=== PATIENT | female | born 1965 | race Caucasian/White ===

== ENCOUNTER → 2017-06-07 | Outpatient (CLI) | payer OTHER ==
[~2017-06-07] MED LIST: ALBUAER2 INH; CALC500C70 PO; LSX/40 PO; METF500T PO; OPTIRAY 320 IV PRN; SIMV40TA4 PO
--- NOTE | 2017-06-08 07:30 | DIAGNOSTIC IMAGING REPORT ---
CT OF THE CHEST WITH IV CONTRAST CLINICAL HISTORY: LYMPHOMA COMPARISON STUDY: 05/06/2012 TECHNIQUE: Following the IV administration of 93 mL of Optiray-320, CT of the thorax was performed from the thoracic inlet to the lung bases. Images are reviewed in the axial, sagittal, and coronal planes. IV contrast was administered without complication. CT DOSE: FINDINGS: Thyroid: There is a multinodular thyroid gland. Thoracic aorta: The thoracic aorta is normal in course and caliber, noting standard 3-vessel arch anatomy. No aneurysm or dissection is seen. Pulmonary vasculature: The pulmonary trunk is normal in caliber. There are no central filling defects identified to suggest pulmonary embolus. Note that this examination was not protocoled for the evaluation of pulmonary emboli. HEART: There are mild coronary artery calcifications present. Lungs and pleural spaces: There are no pleural effusions. There is subtle groundglass attenuation the lungs with a mosaic pattern. This a nonspecific finding which may indicate underlying airway disease. There is no lobar consolidation. There are multiple scattered subcentimeter pulmonary nodules. The largest is located within the right lower lobe measuring 4 mm. These remain relatively similar to the prior 2011 study strongly favoring a postinflammatory etiology. Mediastinum: There is no mediastinal lymphadenopathy. Julia: Clear. Axilla: No evidence of pathologic adenopathy. Upper abdomen: Partially visualized upper abdominal viscera is within normal limits. Skeletal structures: There are postsurgical changes of thoracoabdominal spinal rodding IMPRESSION: 1. No evidence of pathologic axillary, mediastinal, or hilar adenopathy 2. Multiple scattered subcentimeter pulmonary nodules. These remain similar to the prior 2011 study and in all likelihood are benign 3. Subtle groundglass attenuation of the lungs with a mosaic pattern. This may indicate underlying airway disease Electronically signed by: Pratik Calhoun M.D. 06/07/2017 10:41 AM Dictated Date/Time: 06/07/2017 10:35 AM
--- NOTE | 2017-06-08 07:31 | DIAGNOSTIC IMAGING REPORT ---
ABD/PELVIS IV AND ORAL CONT CT DOSE: 2274.05 mGy.cm HISTORY: Lymphoma LYMPHOMA TECHNIQUE: Multiaxial CT images of the abdomen and pelvis were performed following the use of intravenous and oral contrast. COMPARISON STUDY: 05/06/2012 PET scan dated 11/04/2014 FINDINGS: Mild bibasilar chronic interstitial change. Mild fatty infiltration of liver. Uniform enhancement characteristics. Several gallstones within the gallbladder lumen. Kidneys enhance uniformly. Several nodes in the region of the celiac axis and peripancreatic region. These are stable compared to the prior study. Pancreas is uniform. The mesenteric nodule described previously is less well-defined. Bowel pattern is nonobstructive throughout. There is no significant mid to lower periaortic adenopathy. Pelvic region shows no significant adenopathy. Uterus is anteflexed. There are several small inguinal nodes unchanged from the prior study. IMPRESSION: 1. Stable exam with no change as compared to the prior study. 2. Several small scattered nodes unchanged from the prior study. 3. No new interval or progressive process. 4. Gallstones. The above report was generated using voice recognition software. It may contain grammatical, syntax or spelling errors. Electronically signed by: Gaston Mendez M.D. 06/07/2017 10:38 AM Dictated Date/Time: 06/07/2017 10:32 AM
== END | disposition home or self-care (01) ==
LOC: C.CTS 07:42
PROVIDERS: ATTEND Internal Medicine Hematology & Oncology
DX: Z85.72 Personal history of non-Hodgkin lymphomas (principal); K80.20 Calculus of gallbladder without cholecystitis without obstruction; R91.8 Other nonspecific abnormal finding of lung field

== ENCOUNTER → 2017-10-24 | Day surgery (SDC) | payer OTHER ==
[2017-10-04 09:19] VITALS: Ht 152.4 cm; Wt 104.5 kg
[~2017-10-24] VITALS: Ht 152.4 cm; Wt 104.5 kg
[~2017-10-24] MED LIST changes: -ALBUAER2 INH; -CALC500C70 PO; +LIDOCAINE HCL 1% MPF 5 ML VIAL ONE; +LISI-461 PO; -OPTIRAY 320 IV PRN; +SODIUM CHLORIDE 0.9% INJ 10 ML VIAL ONE; +VNTHFA/IN INH
--- NOTE | 2017-10-24 15:36 | History & Physical Bridge - [place] ---
H&P Re-Evaluation Bridge Note: I have examined the patient, reviewed the History & Physical and in the interval since the performance of the History & Physical I have noted the following changes of clinical significance: No changes noted
[2017-10-24 16:02] VITALS: TEMP 36.6
--- NOTE | 2017-10-24 16:09 | Discharge Instructions ---
Discharge Instructions Date of Service Oct 24, 2017. Visit Reason for Visit: Lumbar Spinal Stenosis Discharge Discharge Diagnosis / Problem: right leg pain Discharge Goals Goal(s): Decrease discomfort, Improve function Activity Recommendations Activity Limitations: resume your previous activity Anesthesia . Post Anesthesia Instructions: If you have had General Anesthesia or IV Sedation: * Do not drive today. * Resume driving when surgeon permits. * Do not make important decisions or sign legal documents today. * Call surgeon for: 1. Temperature elevations greater than 101 degrees F. 2. Uncontrollable pain. 3. Excessive bleeding. 4. Persistent nausea and vomiting. 5. Medication intolerance (nausea, vomiting or rash). * For nausea and vomiting use only clear liquids such as: tea, soda, bouillon until nausea subsides, then gradually increase diet as tolerated. * If you have any concerns or questions, call your surgeon's office. If physician is unavailable and it is an emergency, call 911 or go to the nearest emergency room. . Diet Recommendations Recommended Home Diet: resume previous diet Procedures Procedures Performed: Caudal Epidural Steroid Injection Pending Studies Studies pending at discharge: no Medical Emergencies . Who to Call and When: Medical Emergencies: If at any time you feel your situation is an emergency, please call 911 immediately. . Non-Emergent Contact Non-Emergency issues call your: Specialist . . "Provider Documentation" section prepared by Keenan Barton. .
[2017-10-24 16:15] VITALS: BP 135/86; PULSE 100; O2SAT 93
--- NOTE | 2017-10-24 17:59 | OPERATIVE REPORT ---
DATE OF OPERATION: 10/24/2017 PREOPERATIVE DIAGNOSES: Lumbar spinal stenosis with right lower extremity radiculopathy and history of a Handy humza placement. POSTOPERATIVE DIAGNOSES: Same. PROCEDURE: Caudal epidural steroid injection under fluoroscopic guidance. INDICATIONS FOR PROCEDURE: The patient is a 52-year-old white female who has significant problems with lumbar spinal stenosis and right lower extremity radiculopathy. She presents today for an epidural injection. It will be via the caudal approach given her prior significant surgery she had for scoliosis. CONSENT: Verbal and written consent was obtained from the patient. Risks and benefits were reviewed. Risks include but are not limited to epidural abscess, epidural hematoma, allergic reaction, and dural puncture. The patient wishes to proceed. DESCRIPTION OF PROCEDURE: The patient was taken back to the special procedures room of the [facility], where she was maintained in a prone position. Backside was cleansed with Betadine x3 and a dry sterile dressing was applied. Fluoroscope was used to identify the sacral hiatus and the overlying skin was anesthetized with 5 mL of lidocaine 1% with a 25-gauge 1-1/2 inch needle. A 22-gauge 5-inch spinal needle was then directed under lateral fluoroscopic guidance into the sacral canal. It entered the canal and the superior aspect of the canal at a distance of 1 inch. She then underwent injection after negative aspiration of 40 mg of Depo-Medrol and 4 mL of preservative free sodium chloride. Injection was well tolerated. DISPOSITION: 1. The patient was taken out into the discharge recovery area, where she will be discharged home once discharge criteria have been met. 2. Follow up in the [facility] office in 2-4 weeks. I attest to the content of the Intraoperative Record and any orders documented therein. Any exception s are noted below.
== END | disposition home or self-care (01) ==
LOC: X.SURG 14:08
PROVIDERS: ATTEND Physical Medicine & Rehabilitation
DX: M48.061 Spinal stenosis, lumbar region without neurogenic claudication (principal); M54.16 Radiculopathy, lumbar region; Z87.39 Personal history of other diseases of the musculoskeletal system and connective tissue

== ENCOUNTER → 2018-07-18 | Day surgery (SDC) | payer OTHER ==
[2018-07-10 14:59] VITALS: Ht 152.4 cm; Wt 101.4 kg
[~2018-07-18] VITALS: Ht 152.4 cm; Wt 101.4 kg
--- NOTE | 2018-07-18 13:11 | [facility] Post Operative Brief Note ---
Immediate Operative Summary Operative Date Jul 18, 2018. Pre-Operative Diagnosis History of Handy humza placement with underlying lumbar spinal stenosis and left lower extremity radiculopathy Post-Operative Diagnosis Same Procedure(s) Performed Caudal Epidural Steroid Injection Surgeon Dr. Macarena Barton Medical Screener Surgeon(s) None Estimated Blood Loss 0 Findings Consistent with Post-Op Diagnosis Specimens NA Drains None Anesthesia Type Local Complication(s) none Disposition Disposition:
--- NOTE | 2018-07-18 13:12 | Discharge Instructions ---
Discharge Instructions Date of Service Jul 18, 2018. Visit Reason for Visit: Low Back Pain, Lumbar Spinal Stenosis Discharge Discharge Diagnosis / Problem: left leg pain Discharge Goals Goal(s): Decrease discomfort, Improve function Activity Recommendations Activity Limitations: resume your previous activity Anesthesia . Post Anesthesia Instructions: If you have had General Anesthesia or IV Sedation: * Do not drive today. * Resume driving when surgeon permits. * Do not make important decisions or sign legal documents today. * Call surgeon for: 1. Temperature elevations greater than 101 degrees F. 2. Uncontrollable pain. 3. Excessive bleeding. 4. Persistent nausea and vomiting. 5. Medication intolerance (nausea, vomiting or rash). * For nausea and vomiting use only clear liquids such as: tea, soda, bouillon until nausea subsides, then gradually increase diet as tolerated. * If you have any concerns or questions, call your surgeon's office. If physician is unavailable and it is an emergency, call 911 or go to the nearest emergency room. . Diet Recommendations Recommended Home Diet: resume previous diet Procedures Procedures Performed: Caudal Epidural Steroid Injection Pending Studies Studies pending at discharge: no Medical Emergencies . Who to Call and When: Medical Emergencies: If at any time you feel your situation is an emergency, please call 911 immediately. . Non-Emergent Contact Non-Emergency issues call your: Specialist . . "Provider Documentation" section prepared by Keenan Barton. .
[2018-07-18 13:13] VITALS: TEMP 36.6
--- NOTE | 2018-07-18 13:27 | OPERATIVE REPORT ---
DATE OF OPERATION: 07/18/2018 PREOPERATIVE DIAGNOSES: Lumbar spinal stenosis, history of Handy humza placement with proximal radicular pain and left lower extremity radiculopathy. POSTOPERATIVE DIAGNOSES: Lumbar spinal stenosis, history of Handy humza placement with proximal radicular pain and left lower extremity radiculopathy. PROCEDURE: Caudal epidural steroid injection under fluoroscopic guidance. INDICATIONS: The patient is a 53-year-old white female who underwent an epidural and did fantastic, was done in November and just recently she has been having some pain, starting to return in early June. She presents today for an epidural injection to provide her with relief. PHYSICAL EXAMINATION: GENERAL: Pleasant female, seated comfortably. MUSCULOSKELETAL: Lumbar paraspinal muscles were palpated. There was some mild soreness noticed. No significant sciatic notch sensitivity on the left or the right. Normal lower extremity strength. Negative seated straight leg raises. CONSENT: Verbal and written consent was obtained from the patient. Risks and benefits were reviewed. Risks include but are not limited to epidural abscess and allergic reaction. The patient wishes to proceed. DESCRIPTION OF PROCEDURE: The patient was taken back to the special procedures room of [facility]. She was maintained in a prone position. Backside was cleansed with Betadine x3 and a dry sterile dressing was applied. Fluoroscopy was used to identify the lateral view, the sacral hiatus and the overlying skin was anesthetized with 5 mL of lidocaine 1% with a 25-gauge 1.5-inch needle. A 22-gauge 5-inch spinal needle was then directed into the canal. It was able to be advanced about half an inch before we got significant resistance. She then underwent injection after negative aspiration of 40 mg Depo-Medrol, 4 mL of preservative-free sodium chloride. Injection was well tolerated. DISPOSITION: 1. The patient is taken out into the discharge recovery area where she will be discharged home once discharge criteria are met. 2. Follow up in the [facility] office in 4 weeks' time. I attest to the content of the Intraoperative Record and any orders documented therein. Any exception s are noted below.
[2018-07-18 13:35] VITALS: BP 128/82; PULSE 68; O2SAT 93
== END | disposition home or self-care (01) ==
LOC: X.SURG 11:58
PROVIDERS: ATTEND Physical Medicine & Rehabilitation
DX: M48.061 Spinal stenosis, lumbar region without neurogenic claudication (principal); M54.16 Radiculopathy, lumbar region

== ENCOUNTER 2024-03-04 14:35 | Inpatient (IN) ==
--- NOTE | 2024-03-04 15:03 | Emergency Department Note ---
Impression & Plan Acute hypoxemic respiratory failure, Shortness of breath, Pulmonary edema, Hypomagnesemia, Acute exacerbation of CHF (congestive heart failure) ED Provider Note HISTORY OF PRESENT ILLNESS: Patient is a 58-year-old female presenting with shortness of breath. Patient reports that she actually feels like her normal self. However, she was at a follow-up appointment at her primary care provider's office today when she had saturations of 78% on room air. They called an ambulance and sent the patient to the emergency department. Patient reports that she feels like this is her baseline breathing. She does not wear any supplemental oxygen at baseline. She does wear his CPAP at nighttime. Denies any significant cough or recent fevers. Denies any DVT or PE history. She is not on any anticoagulation or antiplatelet therapy. She denies any chest pain currently. Denies any recent nausea or vomiting. Denies any recent surgeries or recent travel. ROS: as above PHYSICAL EXAM: Constitutional: Patient appears in no acute distress. HENT: Head: Normocephalic and atraumatic. Eyes: EOMI, PERRL Mouth/Throat: Mucous membranes moist. Neck: Trachea midline. Neck supple. Cardiovascular: Tachycardic with regular rhythm. No murmurs, rubs or gallops. Intact distal pulses. Pulmonary/Chest: Patient is tachypneic. Coarse breath sounds bilaterally. She is on 5 L nasal cannula with saturations of 92%. She is conversationally dyspneic. Abdominal: Abdomen soft, no tenderness, rebound or guarding. Musculoskeletal: No edema, tenderness or deformity noted. Skin: Warm and dry. No rash, erythema, pallor or cyanosis Psychiatric: Appropriate mood and affect for situation. Neurological: Alert and keenly responsive. CN II-XII grossly intact, moving all extremities equally and fully. MDM: - Vitals signs showed hypoxia and tachycardia - History obtained via patient. History as above. - Chronic conditions affecting care: COPD; DM-2; HTN; HLD; B cell lymphoma (s/p chemo) - Differential diagnoses include, but are not limited to: Congestive heart failure; acute coronary syndrome; COPD/asthma exacerbation; pulmonary edema; pulmonary embolism; pneumonia; pneumothorax; viral syndrome - Order placed for continuous cardiac monitoring. At this time, monitor showed rate of 110 bpm with normal sinus rhythm, per my interpretation. - External medical records reviewed. CPAP compliance note dated 02/29/2024 was reviewed. Patient does use her CPAP nightly. - EKG interpreted by myself showed normal sinus rhythm. Rate tachycardic at 107 bpm. QT 358. No acute ischemic changes. - Laboratory workup interpreted by myself showed normal WBC; stable electrolytes other than hypomagnesemia (Mg 1.5); elevated dimer (830); normal PT/INR; normal troponin; elevated BNP (112) - CXR shows pulmonary vascular congestion, per my interpretation. - Patient on 4L NC in ER, with borderline saturations of 92%. She has evidence of pulmonary edema and was given 80 mg of IV Lasix. She still is tachypneic and seems to be working hard to breathe. Will transition to high flow nasal cannula for some extra respiratory support. - Patient given 1g IV magnesium for electrolyte replacement. - VBG shows hypercarbia (pCO2 65) - Viral respiratory panel negative - CT PE negative for PE, but noted to have pleural effusions and interlobar septal thickening concerning for pulmonary edema. - Discussion was had with onsite case manager about patient's case and need for admission - Hospitalist consulted for admission - Patient admitted to [facility] for further evaluation and management. ASSESSMENT AND PLAN: Diagnosis: Acute hypoxic respiratory failure; shortness of breath; pulmonary edema; hypomagnesemia; CHF exacerbation Plan: Admit Past Med/Surg History Medical History (Updated 03/04/24 @ 17:59 by Pepper Multani MD) Lumbar radiculopathy Gallstones NO ISSUES WITH FOR MONTHS COPD (chronic obstructive pulmonary disease) Follicular lymphoma S/P CHEMO (IN REMISSION) Scoliosis Chronic back pain Diabetes mellitus, type 2 NIDDM History of B-cell lymphoma S/P CHEMO (IN REMISSION) Hypertension Hyperlipidemia On home oxygen therapy HS with CPAP Sleep apnea uses CPAP -> cpap has "" in june 2022. instructed to follow up with PCP regarding the CPAP. Surgical History History of oophorectomy, unilateral RIGHT History of back surgery (~1978) X 2. HARDWARE PRESENT History of esophagogastroduodenoscopy (EGD) History of colonoscopy W/ POLYPECTOMY Family History Uncle Family history of diabetes mellitus Diabetes Cancer Brother Family history of reaction to anesthesia Mother Cancer Grandmother Cancer Father Heart disease Social History Smoking Status: Current every day smoker Tobacco Type: Cigarettes Cigarettes Per Day: DEPENDS ON STRESS LEVEL; Second Hand Exposure: Yes (MOTHER SMOKED); Do You Dip or Chew Tobacco: No; Hx Alcohol Use: No Hx Substance Use: No Preferred Language: Estonian Communication Ability: Effective English Lecturer Required: No Beliefs That Will Affect Care: None marital status: Single Current Living Situation: Alone current occupational status: retired Feels Safe at Home: Yes Assistive Devices: Glasses Allergies Allergies Allergy/AdvReac Type Severity Reaction Status Date / Time adhesive Allergy Unknown TEGADERM-SEVERE Verified 01/03/24 12:26 SKIN IRRITATION/RASH No Known Drug Allergies Allergy Unknown . Verified 01/03/24 12:26 Home Meds Home Medications Medication Instructions Recorded Confirmed furosemide 40 mg tablet (Lasix) 40 mg PO QAM 02/13/19 03/04/24 lisinopril 10 mg tablet 10 mg PO QAM 02/13/19 03/04/24 metformin 500 mg tablet 1,000 mg PO BID 02/13/19 03/04/24 metoprolol succinate 25 mg 25 mg PO QAM 02/13/19 03/04/24 tablet,extended release 24 hr simvastatin 40 mg tablet 40 mg PO HS 02/13/19 03/04/24 albuterol sulfate 90 mcg/actuation 1 inh inhalation QID PRN sob 08/09/22 03/04/24 aerosol inhaler (Ventolin HFA) gabapentin 600 mg tablet 1,800 mg PO TID 08/09/22 03/04/24 Results & Data (ED) Vital Signs Vital Signs - 24 hr 03/04/24 14:48 03/04/24 14:53 03/04/24 14:53 Temperature 37.0 C Temperature Source Oral Pulse Rate 119 H 121 H Pulse Rate [Apical] Pulse Rhythm Regular Pulse Rhythm [Apical] Pulse Strength Normal Pulse Strength [Apical] Respiratory Rate 28 H Respiratory Effort / Characteristics Labored Labored Respiratory Depth Shallow Shallow Respiratory Pattern Tachypnea Tachypnea Blood Pressure 105/87 Blood Pressure [Right Arm] Blood Pressure Mean 93 Blood Pressure Mean [Right Arm] Blood Pressure Position [Right Arm] Pulse Oximetry 78 L Oxygen Delivery Method Room Air Room Air Oxygen Flow Rate Sepsis Recent Fever Within 48 Hours No Sepsis New/Unexplained Change in Mental Status No Sepsis Action Taken by Nursing Physician Notified 03/04/24 14:53 03/04/24 14:53 03/04/24 15:01 Temperature 37.0 C Temperature Source Oral Pulse Rate 116 H Pulse Rate [Apical] 121 H Pulse Rhythm Regular Pulse Rhythm [Apical] Regular Pulse Strength Pulse Strength [Apical] Normal Respiratory Rate 28 H 28 H Respiratory Effort / Characteristics Labored Respiratory Depth Shallow Respiratory Pattern Tachypnea Blood Pressure Blood Pressure [Right Arm] 105/87 Blood Pressure Mean Blood Pressure Mean [Right Arm] 93 Blood Pressure Position [Right Arm] Lying Pulse Oximetry 78 L 91 Oxygen Delivery Method Room Air Room Air Nasal Cannula Oxygen Flow Rate 4 Sepsis Recent Fever Within 48 Hours Sepsis New/Unexplained Change in Mental Status Sepsis Action Taken by Nursing 03/04/24 16:30 Temperature Temperature Source Pulse Rate Pulse Rate [Apical] 113 H Pulse Rhythm Pulse Rhythm [Apical] Pulse Strength Pulse Strength [Apical] Respiratory Rate 22 Respiratory Effort / Characteristics Respiratory Depth Respiratory Pattern Blood Pressure Blood Pressure [Right Arm] 134/88 Blood Pressure Mean Blood Pressure Mean [Right Arm] 103 Blood Pressure Position [Right Arm] Pulse Oximetry 92 Oxygen Delivery Method Nasal Cannula Oxygen Flow Rate 4 Sepsis Recent Fever Within 48 Hours Sepsis New/Unexplained Change in Mental Status Sepsis Action Taken by Nursing Laboratory Data 03/04/24 15:13 03/04/24 15:13 Lab Results 03/04/24 03/04/24 Range/Units 15:13 Unknown WBC 6.90 (4.8-10.8) K/ul RBC 4.61 (4.20-5.40) M/uL Hgb 13.6 (12.0-16.0) g/dl Hct 44.1 (37.0-47.0) % MCV 95.7 (80.0-100.0) fL MCH 29.5 (25.0-34.0) pg MCHC 30.8 L (32.0-36.0) g/dL RDW Std Deviation 49.8 H (36.4-46.3) fL RDW Coeff of Judith 14.2 (11.5-14.5) % Plt Count 254 (130-400) K/uL MPV 9.8 (9.4-12.4) fL Immature Gran % (Auto) 0.1 % Neut % (Auto) 68.8 % Lymph % (Auto) 21.7 % Childress % (Auto) 8.1 % Eos % (Auto) 1.0 % Baso % (Auto) 0.3 % Neut # (Auto) 4.74 (1.40-6.50) K/uL Lymph # (Auto) 1.50 (1.20-3.40) K/uL Childress # (Auto) 0.56 (0.11-0.59) K/uL Eos # (Auto) 0.07 (0.00-0.50) K/uL Baso # (Auto) 0.02 (0.00-0.20) K/uL Immature Gran # (Auto) 0.01 (0.01-0.20) K/uL PT 11.9 (9.0-12.0) Seconds INR 1.1 (0.9-1.1) D-Dimer 830 H* (0-500) ug/L FEU VBG pH 7.42 H (7.36-7.41) VBG pCO2 65 H (38-50) mmHg VBG pO2 63 mmHg VBG HCO3 42 mmol/L VBG O2 Saturation TNP VBG Base Excess 14.5 mEq/L Sodium 139 (136-145) mmol/L Potassium 3.5 (3.5-5.1) mmol/L Chloride 96 L (98-107) mmol/L Carbon Dioxide 37 H (21-32) mmol/L Anion Gap 6 (3-11) BUN 6 (6-23) mg/dl Creatinine 0.33 L (0.6-1.2) mg/dl Est Cr Clr Drug Dosing 171.5 ml/min Est GFR ( Amer) 139.8 ml/min Est GFR (Non-Af Amer) 120.6 ml/min BUN/Creatinine Ratio 18.2 (10-20) Glucose 86 (70-99(Fasting)) mg/dl Calcium 8.9 (8.6-10.3) mg/dl Magnesium 1.5 L (1.7-2.4) mg/dl Total Bilirubin 0.8 (0.2-1.0) mg/dl AST 13 (13-39) U/L ALT 7 (7-52) U/L Alkaline Phosphatase 106 H (34-104) U/L Troponin I High Sens 13.7 (0-14) pg/ml B-Natriuretic Peptide 112 H (0-100) pg/ml Total Protein 6.2 (6.0-8.3) gm/dl Albumin 3.2 L (3.4-5.0) gm/dl Globulin 3.0 (2.5-4.0) gm/dl Albumin/Globulin Ratio 1.1 (0.9-2) Adenovirus (PCR) Not Detected (NotDetected) B. pertussis DNA (PCR) Not Detected (NotDetected) B.parapertussis DNA PCR Not Detected (NotDetected) C. pneumoniae DNA (PCR) Not Detected (NotDetected) Coronavirus OC43 (PCR) Not Detected (NotDetected) Coronavirus HKU1 (PCR) Not Detected (NotDetected) Coronavirus 229E (PCR) Not Detected (NotDetected) SARS-CoV-2 (PCR) Not Detected (NotDetected) Coronavirus NL63 (PCR) Not Detected (NotDetected) Human Metapneumovir PCR Not Detected (NotDetected) Influenza Type A (PCR) Not Detected (NotDetected) Influenza Type B (PCR) Not Detected (NotDetected) M. pneumoniae (PCR) Not Detected (NotDetected) Parainfluenza 1 (PCR) Not Detected (NotDetected) Parainfluenza 2 (PCR) Not Detected (NotDetected) Parainfluenza 3 (PCR) Not Detected (NotDetected) Parainfluenza 4 (PCR) Not Detected (NotDetected) RSV (PCR) Not Detected (NotDetected) Entero/Rhino (PCR) Not Detected (NotDetected) Administered Medications Discontinued Medications Ioversol (Optiray 320 125ml) 86 ml IV ONCE ONE Stop: 03/04/24 17:16 Last Admin: 03/04/24 17:16 Dose: 86 ml Documented By: PLW Imaging Data Radiologist's Impression: Chest X-Ray 03/04/24 15:01 XR chest 1V portable HISTORY: Dyspnea COMPARISON: Chest 07/10/2023. FINDINGS: No pneumothorax. The cardiac silhouette remains mildly enlarged. Blunting of the right lateral costophrenic sulcus suggestive of a trace right pleural effusion. Perihilar interstitial/vascular thickening has progressed and favors mild congestive change. There are patchy right basilar densities which are new from the prior study. No acute fractures. IMPRESSION: 1. Cardiomegaly with mild congestive change and a trace right pleural effusion. This has progressed in the interval. 2. Patchy right basilar densities are nonspecific and could represent a developing pneumonia. ACT 112: Negative or not required by law. Electronically signed by: Trev Roy M.D. 03/04/2024 3:54 PM Chest CTA 03/04/24 16:18 CT angio chest PE protocol CLINICAL HISTORY: PE TECHNIQUE: Multidetector row helical CT of the chest was performed with angiographic protocol. Coronal and sagittal reformations were obtained. Coronal and sagittal MIPS were obtained from the axial data set and were submitted for review. Automated dose lowering techniques and/or adjustment according to patient size were utilized for this exam. CT DOSE: 877.68 mGy.cm Comparison: Comparison is made to CT chest on 08/06/2023 FINDINGS: Lungs and pleura: Bronchial wall thickening is seen. There are small bilateral pleural effusions with underlying atelectasis. Numerous pulmonary nodules are unchanged from prior exam including multiple 3 mm nodules in the right lower lobe (series 4 images 92 and 103). Suggestion of smooth interlobular septal thickening. Heart and pericardium: Mitral annular calcifications are seen. Vessels: The pulmonary trunk is enlarged measuring 34 mm. Moderate atherosclerotic disease is seen. Mediastinum and adwoa: Subcentimeter lymph nodes are seen. Chest wall and lower neck: Small thyroid nodules are noted which do not require follow-up by ACR criteria. Abdomen: Unremarkable. Bones: Degenerative changes in the thoracic spine. Posterior fixation hardware is noted. IMPRESSION: 1. No evidence of pulmonary embolus. 2. Pulmonary hypertension, pleural effusions, and interlobular septal thickening which may represent pulmonary edema. 3. Bronchial wall thickening is seen. ACT 112: Negative or not required by law. Electronically signed by: Keenan Jenkins M.D. 03/04/2024 5:24 PM Discharge Plan Visit Data Chief Complaint: Shortness of Breath/Dyspnea Stated Complaint: SOB with pulse ox 78% on RA. ED Provider: Pepper Multani Discharge Problem: Acute hypoxemic respiratory failure, Shortness of breath, Pulmonary edema, Hypomagnesemia, Acute exacerbation of CHF (congestive heart failure) Forms Stand Alone Forms: [facility] Prescriptions Prescriptions: No Action furosemide [Lasix] 40 mg Tablet 40 mg PO QAM metformin 500 mg Tablet 1,000 mg PO BID simvastatin 40 mg Tablet 40 mg PO HS lisinopril 10 mg Tablet 10 mg PO QAM metoprolol succinate 25 mg Tablet Extended Release 24 Hr 25 mg PO QAM gabapentin 600 mg Tablet 1,800 mg PO TID albuterol sulfate [Ventolin HFA] 90 mcg/actuation Hfa Aerosol Inhaler 1 inh INHALATION QID PRN (Reason: sob) Referrals Referrals: Dimitri Li DO [Primary Care Provider] -
[2024-03-04 15:27] LABS: Base Excess VBG 14.5 mEq/L; HCO3 VBG 42 mmol/L; PCO2 VBG 65 mmHg (38-50); PO2 VBG 63 mmHg; pH VBG 7.42 (7.36-7.41)
[2024-03-04 15:48] LABS: Basophils # (auto) 0.02 K/uL (0.00-0.20); Basophils % (auto) 0.3 %; Eosinophils # (auto) 0.07 K/uL (0.00-0.50); Hematocrit (blood only) 44.1 % (37.0-47.0); Hemoglobin 13.6 g/dl (12.0-16.0); Immature Granulocytes # (auto) 0.01 K/uL (0.01-0.20); Immature Granulocytes % (auto) 0.1 %; Lymphocytes % (auto) 21.7 %; Mean Corpuscular Hemoglobin 29.5 pg (25.0-34.0); Mean Corpuscular Hgb Conc 30.8 g/dL (32.0-36.0); Mean Corpuscular Volume 95.7 fL (80.0-100.0); Mean Platelet Volume 9.8 fL (9.4-12.4); Monocytes # (auto) 0.56 K/uL (0.11-0.59); Monocytes % (auto) 8.1 %; Neutrophils # (auto) 4.74 K/uL (1.40-6.50); Neutrophils % (auto) 68.8 %; Platelet Count 254 K/uL (130-400); RDW Coefficient of Variation 14.2 % (11.5-14.5); RDW Standard Deviation 49.8 fL (36.4-46.3); Red Blood Count 4.61 M/uL (4.20-5.40)
--- NOTE | 2024-03-04 15:55 | XRay Report ---
XR chest 1V portable HISTORY: Dyspnea COMPARISON: Chest 07/10/2023. FINDINGS: No pneumothorax. The cardiac silhouette remains mildly enlarged. Blunting of the right late ral costophrenic sulcus suggestive of a trace right pleural effusion. Perihilar interstitial/vascular thickening has progressed and favors mild congestive change. There are patchy right basilar densitie s which are new from the prior study. No acute fractures. IMPRESSION: 1. Cardiomegaly with mild congestive change and a trace right pleural effusion. This has progressed i n the interval. 2. Patchy right basilar densities are nonspecific and could represent a developing pneumonia. ACT 112: Negative or not required by law. Electronically signed by: Trev Roy M.D. 03/04/2024 3:54 PM
[2024-03-04 15:56] LABS: Albumin Globulin Ratio 1.1 (0.9-2); Albumin Level 3.2 gm/dl (3.4-5.0); BUN Creatinine Ratio 18.2 (10-20); Bilirubin,Total 0.8 mg/dl (0.2-1.0); Calcium 8.9 mg/dl (8.6-10.3); Creatinine Clr Calc Pharmacy 171.5 ml/min; Est GFR (African American) 139.8 ml/min; Est GFR (Non-African American) 120.6 ml/min; Magnesium 1.5 mg/dl (1.7-2.4); Potassium 3.5 mmol/L (3.5-5.1); Total Protein 6.2 gm/dl (6.0-8.3)
[2024-03-04 16:02] LABS: Troponin I High Sensitivity 13.7 pg/ml (0-14)
[2024-03-04 16:06] LABS: INR 1.1 (0.9-1.1); Prothrombin Time 11.9 Seconds (9.0-12.0)
[2024-03-04 16:10] LABS: D Dimer 830 ug/L FEU (0-500)
[2024-03-04 16:28] LABS: Adenovirus PCR Not Detected (NotDetected); Bordetella parapertussis PCR Not Detected (NotDetected); Bordetella pertussis PCR Not Detected (NotDetected); Chlamydia pneumoniae PCR Not Detected (NotDetected); Coronavirus 229E PCR Not Detected (NotDetected); Coronavirus CoV-2 (COVID19)PCR Not Detected (NotDetected); Coronavirus HKU1 PCR Not Detected (NotDetected); Coronavirus NL63 PCR Not Detected (NotDetected); Coronavirus OC43PCR Not Detected (NotDetected); Human Metapneumovirus PCR Not Detected (NotDetected); Influenza A PCR Not Detected (NotDetected); Influenza B PCR Not Detected (NotDetected); Mycoplasma pneumoniae PCR Not Detected (NotDetected); Parainfluenza Virus 1 PCR Not Detected (NotDetected); Parainfluenza Virus 2 PCR Not Detected (NotDetected); Parainfluenza Virus 3 PCR Not Detected (NotDetected); Parainfluenza Virus 4 PCR Not Detected (NotDetected); Respiratory Syncytial VirusPCR Not Detected (NotDetected); Rhinovirus/Enterovirus PCR Not Detected (NotDetected)
[2024-03-04] MEDS: OPTIRAY 320 125ml IV ONE (17:16)
--- NOTE | 2024-03-04 17:25 | CT Scan Report ---
CT angio chest PE protocol CLINICAL HISTORY: PE TECHNIQUE: Multidetector row helical CT of the chest was performed with angiographic protocol. Diaz l and sagittal reformations were obtained. Coronal and sagittal MIPS were obtained from the axial ramón a set and were submitted for review. Automated dose lowering techniques and/or adjustment according to patient size were utilized for this exam. CT DOSE: 877.68 mGy.cm Comparison: Comparison is made to CT chest on 08/06/2023 FINDINGS: Lungs and pleura: Bronchial wall thickening is seen. There are small bilateral pleural effusions with underlying atelectasis. Numerous pulmonary nodules are unchanged from prior exam including multiple 3 mm nodules in the right lower lobe (series 4 images 92 and 103). Suggestion of smooth interlobular septal thickening. Heart and pericardium: Mitral annular calcifications are seen. Vessels: The pulmonary trunk is enlarged measuring 34 mm. Moderate atherosclerotic disease is seen. Mediastinum and adwoa: Subcentimeter lymph nodes are seen. Chest wall and lower neck: Small thyroid nodules are noted which do not require follow-up by ACR shana rowe. Abdomen: Unremarkable. Bones: Degenerative changes in the thoracic spine. Posterior fixation hardware is noted. IMPRESSION: 1. No evidence of pulmonary embolus. 2. Pulmonary hypertension, pleural effusions, and interlobular septal thickening which may represent pulmonary edema. 3. Bronchial wall thickening is seen. ACT 112: Negative or not required by law. Electronically signed by: Keenan Jenkins M.D. 03/04/2024 5:24 PM
[2024-03-04] MEDS: ALBUT/IPRATROP 3MG/0.5MG NEB 3 ML VIAL NEB STA (18:00)
[2024-03-04] MEDS: FUROSEMIDE 40 MG/4 ML VIAL IV ONE (18:04)
--- NOTE | 2024-03-04 18:17 | History & Physical Report ---
Date of Service March 04, 2024 Assessment & Plan (1) Acute hypoxemic respiratory failure: Plan: Presented to PCP office for routine visit, hypoxic to the 70%. Patient reports being in her normal state of health prior, has been out of her lasix for an unknown amount of time. CXR: Cardiomeagaly with with trace right effusion. Elevated DDimer, CTA: no PE, pulmonary HTN, pleural effusions and interlobular septal thickening Respiratory biofire negative VBG: pH 7.42, pCO2 65 BNP: 112 Received 80 mg IV lasix in ED Placed on high flow in ED, will place on bipap overnight and reeval in the AM Procal ordered AM CBC, CMP, VBG (2) Acute exacerbation of CHF (congestive heart failure): Plan: Patient unsure if hx of HF, but is prescribed lasix Echo ordered IV lasix 40mg BID starting in AM Strict I&O - marie placed to assist in monitoring (3) Hypomagnesemia: Plan: 1.5 on arrival, received 1g IV mag in the ED AM Mag level (4) Diabetes mellitus, type 2: Plan: Home med 1000mg Metfomin BID. Will hold on admission Sliding scale insulin BS ACHS (5) Severe obstructive sleep apnea: Plan: per recent c pap compliance, has been using her CPAP at home Continous bipap overnight and reeval in AM (6) Tobacco abuse: Plan: hx 1/2 ppd, quit within the last week agreeable to nicotine patch (7) Hypertension: Plan: Continue lisinopril (8) Pulmonary edema: Plan chronic stable problems back pain - continue gabapentin dispo: admit to PCU NPO DNR DVT proh: lovenox History of Present Illness Chief Complaint: hypoxia Primary Care Provider: Dimitri Li DO Vanessa is a 58F with a past medical history of prediabetes, HTN, back pain and B-cell lymphoma. Presents after being hypoxic at her PCP appointment. Difficulty to obtain history given conversation dyspnea but patient reports that she had been feeling well overall until she got to her PCP office. Does report dry non productive cough over the last 2-3 weeks. No sick contacts, no recent travel. SOB now, but unsure when this started. Uses CPAP at home and reports has been compliant with this. Ran out of lasix, unsure how long ago. Did take her Gabapentin, lexapro and metformin this morning. Unsure why she takes the lasix, states she has never been told to weigh herself everyday. quit smoking 3 days ago - prior smoking half a pack a day Lives alone. Uses a walker sometimes. reports sedentary lifestyle. ED Course 1g IV Mag 80mg IV lasix Duoneb Allergies Allergy/AdvReac Type Severity Reaction Status Date / Time adhesive Allergy Unknown TEGADERM-SEVERE Verified 01/03/24 12:26 SKIN IRRITATION/RASH No Known Drug Allergies Allergy Unknown . Verified 01/03/24 12:26 Home Medications Medication Instructions Recorded Confirmed Type furosemide 40 mg tablet (Lasix) 40 mg PO QAM 02/13/19 03/04/24 History lisinopril 10 mg tablet 10 mg PO QAM 02/13/19 03/04/24 History metformin 500 mg tablet 1,000 mg PO BID 02/13/19 03/04/24 History metoprolol succinate 25 mg 25 mg PO QAM 02/13/19 03/04/24 History tablet,extended release 24 hr simvastatin 40 mg tablet 40 mg PO HS 02/13/19 03/04/24 History albuterol sulfate 90 mcg/actuation 1 inh inhalation QID PRN sob 08/09/22 03/04/24 History aerosol inhaler (Ventolin HFA) gabapentin 600 mg tablet 600 mg PO TID 08/09/22 03/04/24 History Past Med/Surg History Medical History (Updated 03/04/24 @ 19:08 by Janene Boyce PA-C) Lumbar radiculopathy Gallstones NO ISSUES WITH FOR MONTHS COPD (chronic obstructive pulmonary disease) Follicular lymphoma S/P CHEMO (IN REMISSION) Scoliosis Chronic back pain Diabetes mellitus, type 2 NIDDM History of B-cell lymphoma S/P CHEMO (IN REMISSION) Hypertension Hyperlipidemia On home oxygen therapy HS with CPAP Sleep apnea uses CPAP -> cpap has "" in june 2022. instructed to follow up with PCP regarding the CPAP. Surgical History History of oophorectomy, unilateral RIGHT History of back surgery (~1978) X 2. HARDWARE PRESENT History of esophagogastroduodenoscopy (EGD) History of colonoscopy W/ POLYPECTOMY Family History Uncle Family history of diabetes mellitus Diabetes Cancer Brother Family history of reaction to anesthesia Mother Cancer Grandmother Cancer Father Heart disease Social History Smoking Status: Current every day smoker Tobacco Type: Cigarettes Cigarettes Per Day: 5 cigarettes; Second Hand Exposure: Yes; Do You Dip or Chew Tobacco: No; Hx Alcohol Use: No Hx Substance Use: No Preferred Language: Urdu Communication Ability: Effective Sugar Cane Grower Required: No Beliefs That Will Affect Care: None marital status: Single Current Living Situation: Alone current occupational status: retired Feels Safe at Home: Yes Safety Concerns: Feels Safe At This Time Assistive Devices: CPAP and Glasses Review of Systems Review of Systems: All systems reviewed & are unremarkable except as noted in Subjective Physical Exam Physical Exam: General: mild distress, flush in the face , VS as above Resp: increased work of breathing, on HFLC, lungs sounds diminished in bases, no wheezing CV: RRR, no murmur, Abd: normal bowel sounds, non tender, no hepatosplenomegaly Extremities: Moves all extremities, 1+ B/l LE edema Neuro: A&O x3, Skin: intact, abnormal lesion on left back - patient unaware of this Results & Data Results & Data Vital Signs (Past 12 Hours) Vital Signs Temp Pulse Pulse Resp BP BP Pulse Ox 03/04/24 18:02 116 H 19 94 03/04/24 18:01 116 H 19 94 03/04/24 16:30 113 H 22 134/88 92 03/04/24 15:01 116 H 28 H 91 03/04/24 14:53 37.0 C 121 H 28 H 105/87 78 L 03/04/24 14:53 03/04/24 14:53 37.0 C 121 H 28 H 105/87 78 L 03/04/24 14:53 03/04/24 14:48 119 H O2 Del Method O2 Flow Rate FiO2 03/04/24 18:02 High Flow Nasal Cannula 40 45 03/04/24 18:01 High Flow Nasal Cannula 40 45 03/04/24 16:30 Nasal Cannula 4 03/04/24 15:01 Nasal Cannula 4 03/04/24 14:53 Room Air 03/04/24 14:53 Room Air 03/04/24 14:53 Room Air 03/04/24 14:53 Room Air 03/04/24 14:48 Laboratory Results CBC, chemistry, ddimer, VBG reviewed Diagnostic Findings CXR and CTA reviewed Supervising Physician Co-Signing Physician Notes I personally saw and examined the patient. I independently reviewed the labs, EKG, imaging, problem list, medication list, past medical history and family history. I verified all millan points and agree with Janene Boyce PA-C with the following exceptions and/or additions: 58 year old female presents to the ER from routine outpatient visit with shortness of breath, non-productive cough and O2 sats in the 70s. She reports no specific symptoms and no timeline as she didn't think she was sick. O/E A&Ox3, HS increased rate, regular rhythm, no murmurs, accessory muscle use, Bibasal crackles, no wheezing, Abdo SNT, 1+ pedal pitting edema b/l, elevated JVD A/P Acute heart failure with unknown ejection fraction - Lasix 40mg IV BID, marie catheter, strict I&Os, TTE Acute respiratory failure with hypoxia and hypercapnia - switch to BiPAP due to pulmonary edema is her usual night time settings PG Care Time/CCT Total # of Minutes Spent Total Time Spent with Patient: Total time spent is greater than 50% in coordination of care (as documented) at patient's floor/unit and/or counseling patient: Coding Level of Care Code 89761 INT INP/OBS CARE 3/75MIN Diagnoses Acute hypoxemic respiratory failure J96.01 Acute exacerbation of CHF (congestive heart failure) I50.9 Hypomagnesemia E83.42 Diabetes mellitus, type 2 E11.9 Severe obstructive sleep apnea G47.33 Tobacco abuse Z72.0 Hypertension I10 Pulmonary edema J81.1
[2024-03-04] MEDS: MAGNESIUM SULFATE / D5W 1 GM/100 ML BAG IV STA (18:50)
[2024-03-04 19:48] LABS: Appearance Urine Clear (Clear); Bilirubin Urine Negative (Negative); Blood Urine Negative (Negative); Color Urine Yellow; Glucose Urine UA Negative (Negative); Ketones Urine Negative (Negative); Leukocyte Esterase Urine Negative (Negative); Nitrite Urine Negative (Negative); Protein Urine Negative (Negative); Urobilinogen Urine Negative (Negative); pH Urine 7.5 (4.5-7.5)
[2024-03-04] MEDS ORDERED: ACETAMINOPHEN 325 MG TAB PO PRN (20:09)
[2024-03-04] MEDS ORDERED: POLYETHYLENE (MIRALAX) 17 GM PACK PO PRN (20:09)
[2024-03-04] MEDS ORDERED: ONDANSETRON INJ 2 MG/ML 2 ML VIAL IV PRN (20:09)
[2024-03-04] MEDS ORDERED: GABAPENTIN 600 MG TAB PO SCH (21:00)
[2024-03-04] MEDS: GABAPENTIN 600 MG TAB PO SCH (21:46)
[2024-03-04] MEDS: SIMVASTATIN 40 MG TAB PO SCH (22:44)
[2024-03-05 06:06] LABS: Base Excess VBG 15.5 mEq/L; HCO3 VBG 45 mmol/L; Oxygen Saturation VBG 69.8 %; PCO2 VBG 82 mmHg (38-50); PO2 VBG 47 mmHg; pH VBG 7.35 (7.36-7.41)
[2024-03-05 06:21] LABS: Albumin Globulin Ratio 1.1 (0.9-2); Albumin Level 3.3 gm/dl (3.4-5.0); BUN Creatinine Ratio 18.8 (10-20); Bilirubin,Total 1.1 mg/dl (0.2-1.0); Calcium 9.3 mg/dl (8.6-10.3); Creatinine Clr Calc Pharmacy 170.5 ml/min; Est GFR (African American) 141.2 ml/min; Est GFR (Non-African American) 121.8 ml/min; Globulin 2.9 gm/dl (2.5-4.0); Magnesium 1.7 mg/dl (1.7-2.4); Potassium 3.8 mmol/L (3.5-5.1); Total Protein 6.2 gm/dl (6.0-8.3)
[2024-03-05 06:29] LABS: Basophils # (auto) 0.02 K/uL (0.00-0.20); Basophils % (auto) 0.3 %; Eosinophils # (auto) 0.06 K/uL (0.00-0.50); Eosinophils % (auto) 0.8 %; Hematocrit (blood only) 44.8 % (37.0-47.0); Immature Granulocytes # (auto) 0.02 K/uL (0.01-0.20); Immature Granulocytes % (auto) 0.3 %; Lymphocytes # (auto) 0.93 K/uL (1.20-3.40); Lymphocytes % (auto) 11.9 %; Mean Corpuscular Hemoglobin 29.5 pg (25.0-34.0); Mean Corpuscular Hgb Conc 31.3 g/dL (32.0-36.0); Mean Corpuscular Volume 94.5 fL (80.0-100.0); Mean Platelet Volume 9.7 fL (9.4-12.4); Monocytes % (auto) 6.4 %; Neutrophils % (auto) 80.3 %; Platelet Count 269 K/uL (130-400); RDW Coefficient of Variation 13.9 % (11.5-14.5); RDW Standard Deviation 48.9 fL (36.4-46.3); Red Blood Count 4.74 M/uL (4.20-5.40); White Blood Count 7.83 K/ul (4.8-10.8)
[2024-03-05] MEDS: NICOTINE 14 MG/24 HR PATCH TD SCH (08:25)
[2024-03-05] MEDS: ENOXAPARIN INJ 40 MG/0.4 ML SYR SQ SCH (08:25)
[2024-03-05] MEDS: lisinopril 10 MG TAB PO SCH (08:26)
[2024-03-05] MEDS: METOPROLOL SUCC 25MG EXT REL TAB PO SCH (08:26)
[2024-03-05] MEDS: FUROSEMIDE 40 MG/4 ML VIAL IV SCH (08:26)
--- NOTE | 2024-03-05 13:46 | Hospitalist Progress Note ---
Date of Service March 05, 2024 Assessment & Plan (1) Acute respiratory failure with hypoxia and hypercapnia: Plan: multi-factorial -- CHF, probable underlying COPD with exacerbation, pulm HTN can't rule out aspiration contributing as well but there is no discrete pneu monia on imaging nor evidence of any infectious process at this time BIPAP with sleep HFNC while awake keep sats 90-92% treat individual issues as below (2) Acute heart failure with preserved ejection fraction (HFpEF): Plan: EF preserved - 60-65% grade 1 diastolic dysfunction RV is dilated by systolic function is also preserved imaging c/w volume overload she has diuresed considerably overnight/today BPs now soft - will place tomorrow's lasix on hold until her am labs can be reviewed for stability cont meto succ hold lisinopril (3) Pulmonary HTN: Plan: severe on echo today likely contributing to high o2 requirements consider cardiology consult - would patient ultimately need right heart cath? diurese will need to be assessed for daytime O2 closer to discharge (4) COPD (chronic obstructive pulmonary disease): Plan: I looked at old [employer] and new [employer] and cannot find a copy of any PFTs [id number] there is reference to severe COPD in some records in light of extensive smoking history and her hypercapnia with wheezing she likely does have baseline COPD add pulmicort nebs BID add long-acting B2 agonist BID start solumedrol 30mg IV BID strongly consider pulm consult given her clinical picture, severe pulm HTN, etc (5) Hypomagnesemia: Plan: 1.5 on arrival replaced resolved (6) Diabetes mellitus, type 2: Plan: hold metformin a1c 6.3% in 2022 will repeat in am add basal-bolus insulin, BSG checks, etc (7) Severe obstructive sleep apnea: Plan: follows with Dr Maria from sleep medicine Cont BIPAP with home settings - Blend O2 to keep sats 90-92% (8) Tobacco abuse: Plan: hx 1/2 ppd, quit within the last week agreeable to nicotine patch - use 14mg/day (9) Hypertension: Plan: Hold lisinopril to allow more room in BP while diuresing Cont meto succinate (10) History of B-cell lymphoma: Plan: noted in remission imaging studies without any pathological lymphadenopathy no prior h/o radiation - just chemotherapy (11) Unilateral vocal cord paralysis: Plan: left dx at ENT - [facility] in 11/2023 uncertain etiology she is reporting some dysphagia will ask speech therapy to perform swallow eval to ensure she is not aspirating (12) Multiple thyroid nodules: Plan: records obtained from [facility] ENT she has multiple nodules, several >1cm biopsy of dominant nodule advised by ENT but she has not had such yet to date (13) DVT prophylaxis: Plan: lovenox daily Admission and Anticipated Discharge Date Admission Date: March 04, 2024 Subjective tele overnight wnl pt remains on high-flow NC during the visit she was sitting comfortably in the chair by the bedside she reports feeling "a lot better" when asked specifically she states "everything feels better" - particularly her breathing prior to the last few days she reports no breathing difficulties at baseline she is an active smoker is not on daytime O2, but does use blended o2 with her BIPAP follows with Dr Maria from sleep a few months ago in November she was dx with unilateral vocal cord paralysis cause uncertain she was seen at [facility] for this since then she does report "gagging" with food/beverage intake - this is intermittent she is coughing no significant sputum Review of Systems Review of Systems: gen - no fevers cv - no chest pain pulm - dyspnea with MARS last 24 hours but not at baseline?? GI - no abd pain or N/V Physical Exam Physical Exam: gen - sitting in chair, no distress, awake/alert neck - JVD present sitting upright at 90 degrees mouth - MMM, ?thrush on tongue? voice - hoarse, low-pitched heart - RRR, s1 s2, 1/6 systolic murmur LSB lungs - diffuse end-exp wheezes b/l; mild crackles both bases; no distress or accessory muscle usage abd - soft NT ND BS+ ext - trace edema, pulses 2+ b/l psych - a/o x 3 Results & Data Results & Data Vital Signs (Past 12 Hours) Vital Signs Temp Pulse Pulse Resp BP BP Pulse Ox 03/05/24 11:53 36.6 C 96 H 22 108/73 97 03/05/24 11:04 63 20 95 03/05/24 10:35 03/05/24 08:00 113 H 03/05/24 07:24 36.7 C 107 H 22 120/69 91 03/05/24 07:15 112 H 24 03/05/24 06:25 92 H 20 91 03/05/24 03:04 36.4 C L 102 H 16 120/75 89 L 03/05/24 02:27 99 H 24 90 O2 Del Method O2 Flow Rate FiO2 03/05/24 11:53 High Flow Nasal Cannula 40 70 03/05/24 11:04 High Flow Nasal Cannula 40 80 03/05/24 10:35 High Flow Nasal Cannula 40 80 03/05/24 08:00 03/05/24 07:24 High Flow Nasal Cannula 40 80 03/05/24 07:15 High Flow Nasal Cannula 40 45 03/05/24 06:25 High Flow Nasal Cannula 40 45 03/05/24 03:04 BiPAP 03/05/24 02:27 45 Laboratory Results Laboratory Results - last 24 hr 03/05/24 03/05/24 03/05/24 05:50 16:14 19:52 WBC 7.83 RBC 4.74 Hgb 14.0 Hct 44.8 MCV 94.5 MCH 29.5 MCHC 31.3 L RDW Std Deviation 48.9 H RDW Coeff of Judith 13.9 Plt Count 269 MPV 9.7 Immature Gran % (Auto) 0.3 Neut % (Auto) 80.3 Lymph % (Auto) 11.9 [place] % (Auto) 6.4 Eos % (Auto) 0.8 Baso % (Auto) 0.3 Neut # (Auto) 6.30 Lymph # (Auto) 0.93 L [place] # (Auto) 0.50 Eos # (Auto) 0.06 Baso # (Auto) 0.02 Immature Gran # (Auto) 0.02 VBG pH 7.35 L VBG pCO2 82 H VBG pO2 47 VBG HCO3 45 VBG O2 Saturation 69.8 VBG Base Excess 15.5 Sodium 141 Potassium 3.8 Chloride 95 L Carbon Dioxide 40 H Anion Gap 6 BUN 6 Creatinine 0.32 L Est Cr Clr Drug Dosing 170.5 Est GFR ( Amer) 141.2 Est GFR (Non-Af Amer) 121.8 BUN/Creatinine Ratio 18.8 Glucose 76 POC Glucose 110 H 170 H Calcium 9.3 Magnesium 1.7 Total Bilirubin 1.1 H AST 15 ALT 6 L Alkaline Phosphatase 110 H Total Protein 6.2 Albumin 3.3 L Globulin 2.9 Albumin/Globulin Ratio 1.1 PG Care Time/CCT Total # of Minutes Spent Total Time Spent with Patient: Total time spent is greater than 50% in coordination of care (as documented) at patient's floor/unit and/or counseling patient: Coding Level of Care Code 16102 SUB INP/OBS CARE 3/50MIN Diagnoses Acute respiratory failure with hypoxia and hypercapnia J96.01; J96.02 Acute heart failure with preserved ejection fraction (HFpEF) I50.31 Pulmonary HTN I27.20 COPD (chronic obstructive pulmonary disease) J44.9 Hypomagnesemia E83.42 Diabetes mellitus, type 2 E11.9 Severe obstructive sleep apnea G47.33 Tobacco abuse Z72.0 Hypertension I10 History of B-cell lymphoma Z85.72 Unilateral vocal cord paralysis J38.01 Multiple thyroid nodules E04.2 DVT prophylaxis Z29.9
[2024-03-05] MEDS ORDERED: methylPREDNISolone 10 mg/mL (For Ped Dose < 7mg) IV SCH (14:00)
[2024-03-05] MEDS: methylPREDNISolone 30 MG in SYRINGE 0 ML IV SCH (16:09)
[2024-03-05] MEDS: INSULIN ASPART PER UNIT CHARGE SC SCH (17:31)
--- NOTE | 2024-03-05 19:47 | XCELERA ---
[id number]
[2024-03-05] MEDS: BUDESONIDE 0.5 MG/2 ML VIAL (PULMICORT) NEB SCH (20:10)
[2024-03-05] MEDS: FORMOTEROL 20 MCG/2 ML VIAL INH SCH (20:10)
[2024-03-05] MEDS ORDERED: DEXTROSE 50% 50 ML SYRINGE IV PRN (20:45)
[2024-03-05] MEDS ORDERED: GLUCOSE 40% GEL 15 GM TUBE PO PRN (20:45)
[2024-03-05] MEDS ORDERED: GLUCAGON FOR INJ 1 MG VIAL IM PRN (20:45)
[2024-03-05] MEDS ORDERED: GLUCOSE 10 TAB/TUBE PO PRN (20:45)
[2024-03-05] MEDS ORDERED: CARBOHYDRATES FOR HYPOGLYCEMIA PO PRN (20:45)
[2024-03-05] MEDS: LANTUS PER UNIT CHARGE SQ SCH (21:58)
[2024-03-06 06:50] LABS: BUN Creatinine Ratio 40.5 (10-20); Calcium 9.4 mg/dl (8.6-10.3); Creatinine Clr Calc Pharmacy 128.9 ml/min; Est GFR (African American) 129.1 ml/min; Est GFR (Non-African American) 111.4 ml/min; Magnesium 1.9 mg/dl (1.7-2.4); Potassium 4.6 mmol/L (3.5-5.1)
[2024-03-06 07:37] LABS: Estimated Average Glucose 137 mg/dl; Hemoglobin A1C 6.4 % (4.5-5.6)
[2024-03-06] MEDS: FUROSEMIDE 40 MG/4 ML VIAL IV ONE (09:04)
--- NOTE | 2024-03-06 11:23 | Hospitalist Progress Note ---
Date of Service March 06, 2024 Assessment & Plan (1) Acute respiratory failure with hypoxia and hypercapnia: Plan: multi-factorial -- CHF, possible underlying COPD with exacerbation, severe pulmonary HTN, etc. can't rule out aspiration contributing as well but there is no discrete pneumonia on imaging nor evidence of any infectious process at this time BIPAP with sleep HFNC while awake keep sats 88-92% treat individual issues as below (2) Acute heart failure with preserved ejection fraction (HFpEF): Plan: EF preserved - 60-65% grade 1 diastolic dysfunction RV is dilated but systolic function is preserved imaging c/w volume overload she has diuresed considerably since admission BPs cont to be soft - gave lasix today but I held her afternoon dose hold lisinopril to allow more room for her BP and diuresis cont meto succ appreciate recs from [facility] Cardiology, Dr Douglass (3) Pulmonary HTN: Plan: severe on echo likely contributing to high o2 requirements pulmonary and cardiology consults requested suspect patient will ultimately need right heart cath to confirm PA pressures, etc cont to diurese will need to be assessed for daytime O2 closer to discharge (4) COPD (chronic obstructive pulmonary disease): Plan: possible/suspected I looked at old [employer] and new [employer] and cannot find a copy of any PFTs [id number] there is reference to severe COPD in some records in light of extensive smoking history and her hypercapnia with wheezing she likely does have baseline COPD but will need formal PFTs after discharge added pulmicort nebs BID added long-acting B2 agonist BID started solumedrol 30mg IV BID yesterday -- with nebs and steroids her wheezing is improved can't rule out that her pulm edema was the cause of some of the wheezing pulm consult requested & any recs appreciated (5) Hypomagnesemia: Plan: 1.5 on arrival replaced resolved (6) Diabetes mellitus, type 2: Plan: hold metformin a1c 6.3% in 2022 a1c today 6.4% cont basal-bolus insulin, BSG checks, etc (7) Severe obstructive sleep apnea: Plan: follows with Dr Maria from sleep medicine Cont BIPAP with home settings - Blend O2 to keep sats 90-92% her neighbor may be able to bring her home unit in (8) Tobacco abuse: Plan: hx 1/2 ppd, quit within the last week agreeable to nicotine patch - use 14mg/day (9) Hypertension: Plan: Hold lisinopril to allow more room in BP while diuresing Cont meto succinate (10) History of B-cell lymphoma: Plan: noted in remission imaging studies without any pathological lymphadenopathy no prior h/o radiation - just chemotherapy (11) Unilateral vocal cord paralysis: Plan: left dx at ENT - [facility] in 11/2023 uncertain etiology she is reporting some dysphagia asked speech therapy to perform swallow eval to ensure she is not aspirating they are planning a FEES study while she is here (12) Multiple thyroid nodules: Plan: records obtained from [facility] ENT she has multiple nodules, several >1cm biopsy of dominant nodule advised by ENT but she has not had such yet to date (13) DVT prophylaxis: Plan: lovenox daily Plan appreciate pulm and cards consults attempted to call her neighbor Juliana at her request - no answer attempted to call her brother who has a [place] address - no answer, there was no voicemail greeting, thus left generic message but did not leave patient details will attempt to call again tomorrow Admission and Anticipated Discharge Date Admission Date: March 04, 2024 Subjective tele overnight - NSR sitting in chair comfortably at one point she removed the high-flow NC device she promptly dropped her o2 sats down to the upper 70s/low 80s I asked her to put the prongs back in nose following such it took about 5 minutes for sats to return to about 88% she has mild cough only denies dyspnea at rest denies dyspnea moving from the bed to the chair asks that I contact her neighbor Juliana rather than her brother (who is next of kin) she is not nor has children she thinks her neighbor Juliana can get her home BIPAP machine and bring it to hospital Review of Systems Review of Systems: gen - eating well cv - no chest pain pulm - ongoing cough; wheezing improved GI - no abd pain or N/V Physical Exam Physical Exam: gen - sitting in chair, no distress, awake/alert, cyanotic / purple color to tongue and glenis-oral areas neck - mild JVD present sitting upright at 90 degrees mouth - MMM, ?thrush on tongue? voice - hoarse, low-pitched heart - RRR, s1 s2, 1/6 systolic murmur LSB lungs - wheezes b/l today improved/resolved; mild crackles both bases; no distress or accessory muscle usage; airation fair abd - soft NT ND BS+ ext - trace edema, pulses 2+ b/l psych - a/o x 3 Results & Data Results & Data Vital Signs (Past 12 Hours) Vital Signs Temp Pulse Pulse Resp BP BP Pulse Ox 03/06/24 11:18 36.8 C 94 H 23 101/65 91 03/06/24 09:00 85 03/06/24 09:00 03/06/24 07:16 36.4 C L 89 18 108/62 95 03/06/24 07:15 79 20 94 03/06/24 04:04 74 19 95 03/06/24 03:05 36.9 C 83 20 94/56 L 96 O2 Del Method O2 Flow Rate FiO2 03/06/24 11:18 High Flow Nasal Cannula 03/06/24 09:00 03/06/24 09:00 High Flow Nasal Cannula 40 60 03/06/24 07:16 BiPAP 03/06/24 07:15 50 03/06/24 04:04 50 03/06/24 03:05 High Flow Nasal Cannula 40 Laboratory Results Laboratory Results - last 24 hr 03/06/24 03/06/24 03/06/24 05:36 07:50 12:14 Sodium 138 Potassium 4.6 D Chloride 91 L Carbon Dioxide 42 H* Anion Gap 5 BUN 17 Creatinine 0.42 L Est Cr Clr Drug Dosing 128.9 Est GFR ( Amer) 129.1 Est GFR (Non-Af Amer) 111.4 BUN/Creatinine Ratio 40.5 H Glucose 132 H POC Glucose 130 H 334 H* Estimat Average Glucose 137 Hemoglobin A1c 6.4 H Calcium 9.4 Magnesium 1.9 03/06/24 03/06/24 12:16 16:47 Sodium Potassium Chloride Carbon Dioxide Anion Gap BUN Creatinine Est Cr Clr Drug Dosing Est GFR ( Amer) Est GFR (Non-Af Amer) BUN/Creatinine Ratio Glucose POC Glucose 306 H* 134 H Estimat Average Glucose Hemoglobin A1c Calcium Magnesium PG Care Time/CCT Total # of Minutes Spent Total Time Spent with Patient: Total time spent is greater than 50% in coordination of care (as documented) at patient's floor/unit and/or counseling patient: Coding Level of Care Code 24039 SUB INP/OBS CARE 2/35MIN Diagnoses Acute respiratory failure with hypoxia and hypercapnia J96.01; J96.02 Acute heart failure with preserved ejection fraction (HFpEF) I50.31 Pulmonary HTN I27.20 COPD (chronic obstructive pulmonary disease) J44.9 Hypomagnesemia E83.42 Diabetes mellitus, type 2 E11.9 Severe obstructive sleep apnea G47.33 Tobacco abuse Z72.0 Hypertension I10 History of B-cell lymphoma Z85.72 Unilateral vocal cord paralysis J38.01 Multiple thyroid nodules E04.2 DVT prophylaxis Z29.9
--- NOTE | 2024-03-06 13:30 | Pulmonary Consultation ---
Date of Consultation March 06, 2024 Assessment & Plan (1) Acute respiratory failure with hypoxia and hypercapnia: (2) Acute exacerbation of CHF (congestive heart failure): (3) Severe obstructive sleep apnea: (4) Tobacco abuse: Plan IMPRESSION: 58-year-old female with a significant past medical history of morbid obesity, substantial smoking history, CHF, and severe sleep apnea who [facility] in the setting of profound hypoxemia with no other acute findings. RECOMMENDATIONS: 1. Hypoxia - Patient presented with profound hypoxemia is only complaint. She does not complain of any dyspnea on exertion. Her blood gas shows compensated hypercapnia and serum shows an elevated CO2. This is likely the driving force of the patient's underlying hypoxia. She does have a BiPAP which she is to wear at home, however she has not done so over the last few weeks. Given her laboratory findings and persistent hypercapnia, the patient likely lives with an elevated CO2 at her baseline and a lower oxygen level. Would aim for oxygen saturations at 85% or above. Wean oxygen as tolerated. CTA demonstrates no filling defects or other concerns. Echocardiogram shows no structural changes, however profound hypoxia this refractory there could be consideration for bubble study to assess for degree of shunting physiology. Would continue to aggressively diuresis the patient does continue to appear volume overloaded. Otherwise, she appears very well compensated at this time and offers no complaints otherwise. 2. Pulmonary hypertension - Appreciated during recent echocardiogram. Would advocate for ongoing aggressive diuresis in a patient that is volume overloaded. Additionally, would aggressively manage the patient's severe sleep apnea as this certainly could be contributing to her pulmonary hypertension and associated symptoms as well. 3. Severe obstructive sleep apnea - Would continue to manage and maintain that the patient does have an appropriate device and mask that is working upon discharge to home. Her home settings are relatively aggressive with BiPAP settings of 21/17. 4. Tobacco abuse - Patient is a daily smoker. Encouraged complete smoking cessation given her multiple comorbidities and ongoing symptoms. Thank you for allowing us to participate in the care of this patient. Pulmonary medicine will follow along. Supervising Physician Co-Signing Physician Notes The patient seen and examined. EMR reviewed. Discussed with JORDYN and agree with assessment plan as noted. Patient has multifactorial hypoxemia. She has hypercarbia likely due to obesity hypoventilation syndrome and restrictive lung disease due to spine issues. She has not had PFTs recently. She is not bronchospastic and I do not see an indication for steroids. Can continue bronchodilators. Echocardiogram showed pulmonary hypertension. She remains fluid up with significant pitting lower extremity edema. Continue diuresis until she is euvolemic and has no edema. Will schedule Lasix and use Aldactone as well. Follow electrolytes and kidney function. Consideration for repeat echocardiogram with bubble study to evaluate for right to left shunt may be appropriate but will discuss with cardiology. Do not see a role for right heart catheterization until she is completely euvolemic. Her pulmonary hypertension is likely secondary to diastolic dysfunction, valvular heart disease, COPD, sleep disordered breathing, and hypercarbia and hypoxemia. Do not see a role for pulmonary vasodilators currently. Her last compliance data demonstrated an AHI of 15 [address] . [address] her on a trial of ASV while she is here in the hospital to see if we can get her better controlled. She will need to follow with Dr. Maria in the sleep clinic. History of Present Illness Reason for Consultation: hypoxic/hypercapnic resp failure Requesting Physician: Dr. Ferguson Attending Physician: Colin Ferguson MD History of Present Illness Patient is a 58-year-old female with a significant past medical history including prior diagnosis of COPD, severe obstructive sleep apnea, nocturnal hypoxemia, diabetes, hypertension, tobacco abuse who had presented to her primary care provider's office for routine 6-month follow-up. During her evaluation, she was noted to be significantly hypoxic with saturations in the 70s. She was brought by ambulance to the emergency department where she underwent extensive evaluation and was started on supplemental oxygen. CTA was obtained and demonstrated no clot burden. Her Bio[employer] testing was negative. She received Lasix secondary to findings of volume overload. She has continued to require supplemental oxygen at higher levels so pulmonary medicine was consulted for evaluation and management. Upon evaluation at bedside, the patient is awake, alert, and oriented. She offers no complaints of dyspnea. She reports that she did not notice any change in her symptoms prior to being evaluated her primary care provider's office. Specifically, she reports no recent fevers, chills, upper respiratory infections, cough, or hemoptysis. The patient takes her medications as prescribed. She reports no recent changes in medications otherwise. Patient has smoked since her 20s and averages a pack to a pack and half a day. She follows with [facility], but has not appeared to be consistent with BiPAP use secondary to an ill fitting mask. Allergies Allergy/AdvReac Type Severity Reaction Status Date / Time adhesive Allergy Unknown TEGADERM-SEVERE Verified 01/03/24 12:26 SKIN IRRITATION/RASH No Known Drug Allergies Allergy Unknown . Verified 01/03/24 12:26 Home Medications Medication Instructions Recorded Confirmed Type furosemide 40 mg tablet (Lasix) 40 mg PO QAM 02/13/19 03/04/24 History lisinopril 10 mg tablet 10 mg PO QAM 02/13/19 03/04/24 History metformin 500 mg tablet 1,000 mg PO BID 02/13/19 03/04/24 History metoprolol succinate 25 mg 25 mg PO QAM 02/13/19 03/04/24 History tablet,extended release 24 hr simvastatin 40 mg tablet 40 mg PO HS 02/13/19 03/04/24 History albuterol sulfate 90 mcg/actuation 1 inh inhalation QID PRN sob 08/09/22 03/04/24 History aerosol inhaler (Ventolin HFA) gabapentin 600 mg tablet 600 mg PO TID 08/09/22 03/04/24 History Patient History Medical History (Updated 03/06/24 @ 04:38 by Colin Ferguson MD) Lumbar radiculopathy Gallstones NO ISSUES WITH FOR MONTHS COPD (chronic obstructive pulmonary disease) Follicular lymphoma S/P CHEMO (IN REMISSION) Scoliosis Chronic back pain Diabetes mellitus, type 2 NIDDM History of B-cell lymphoma S/P CHEMO (IN REMISSION) Hypertension Hyperlipidemia On home oxygen therapy HS with CPAP Sleep apnea uses CPAP -> cpap has "" in june 2022. instructed to follow up with PCP regarding the CPAP. Surgical History History of oophorectomy, unilateral RIGHT History of back surgery (~1978) X 2. HARDWARE PRESENT History of esophagogastroduodenoscopy (EGD) History of colonoscopy W/ POLYPECTOMY Family History Uncle Family history of diabetes mellitus Diabetes Cancer Brother Family history of reaction to anesthesia Mother Cancer Grandmother Cancer Father Heart disease Social History Smoking Status: Current every day smoker Tobacco Type: Cigarettes Cigarettes Per Day: 5 cigarettes; Second Hand Exposure: Yes; Do You Dip or Chew Tobacco: No; Hx Alcohol Use: No Hx Substance Use: No Preferred Language: Marshallese Communication Ability: Effective Music Arranger Required: No Beliefs That Will Affect Care: None marital status: Single Current Living Situation: Alone current occupational status: retired Feels Safe at Home: Yes Safety Concerns: Feels Safe At This Time Assistive Devices: CPAP, Oxygen - at Night and Walker Review of Systems Review of Systems: A complete 10 point review of systems was reviewed with the patient with pertinent positives and negatives as per history of present illness. All else were negative. Physical Exam Physical Exam: VITAL SIGNS - Vital signs and nursing notes were reviewed. GENERAL - 58-year-old female appearing her stated age who is in no acute distress. Communicates well with provider and answers questions appropriately. SKIN - Without rashes or lesions. NOSE - Midline and without cyanosis. MOUTH/OROPHARYNX - Without perioral cyanosis. NECK - Neck with FROM. LUNGS - Auscultation reveals diminished breath sounds. CARDIAC - RRR with S1/S2. No murmur, rubs, or gallops appreciated. ABDOMEN - Abdominal inspection demonstrates an obese abdomen. BS normoactive all four quadrants. No tenderness, palpable masses, or ascites noted. EXTREMITIES - Nail clubbing not present. No peripheral cyanosis. Moderate pretibial edema present. +3/5 radial palpated throughout. PSYCH - A&Ox3 and cooperates fully with examiner. Pt is very pleasant and interacts well with examiner. Results & Data Results & Data Vital Signs (Past 12 Hours) Vital Signs Temp Pulse Pulse Resp BP BP Pulse Ox 03/06/24 12:36 94 H 22 94 03/06/24 11:18 36.8 C 94 H 23 101/65 91 03/06/24 09:00 85 03/06/24 09:00 03/06/24 07:16 36.4 C L 89 18 108/62 95 03/06/24 07:15 79 20 94 03/06/24 04:04 74 19 95 03/06/24 03:05 36.9 C 83 20 94/56 L 96 O2 Del Method O2 Flow Rate FiO2 03/06/24 12:36 High Flow Nasal Cannula 40 5 03/06/24 11:18 High Flow Nasal Cannula 03/06/24 09:00 03/06/24 09:00 High Flow Nasal Cannula 40 60 03/06/24 07:16 BiPAP 03/06/24 07:15 50 03/06/24 04:04 50 03/06/24 03:05 High Flow Nasal Cannula 40 PG Care Time/CCT Total # of Minutes Spent Total Time Spent with Patient: Total time spent is greater than 50% in coordination of care (as documented) at patient's floor/unit and/or counseling patient: Coding Level of Care Code 09692 IN/OBS CONSULT LVL 3,45M Diagnoses Acute respiratory failure with hypoxia and hypercapnia J96.01; J96.02 Acute exacerbation of CHF (congestive heart failure) I50.9 Severe obstructive sleep apnea G47.33 Tobacco abuse Z72.0
--- NOTE | 2024-03-06 19:01 | Cardiology Consultation ---
Date of Consultation March 06, 2024 Assessment & Plan (1) Acute heart failure with preserved ejection fraction (HFpEF): (2) Acute respiratory failure with hypoxia and hypercapnia: (3) Hypertension: (4) Tobacco abuse: (5) Pulmonary HTN: Plan ASSESSMENT/PLAN: 1. Acute heart failure with preserved EF: She appears hypervolemic and breathing has improved with diuresis. Net fluid balance thus far is -6.2 L. Only given 1 dose of Lasix today for concern of mild hypotension. Would continue twice daily dosing tomorrow and monitor for azotemia. Strict I's and O's. Daily weights. Low-sodium diet, less than 2000 mg daily. Prior to discharge, recommend SGLT2 inhibitor if no contraindication. 2. Pulmonary hypertension: Has known severe obstructive sleep apnea, long time smoker, and appears hypervolemic. Continue to diurese. Pulmonary is following for her pulmonary issues. Once euvolemic, would recommend reevaluating pulmonary pressures by repeating echo or pursuing right heart catheterization. If done via echo and pulmonary pressures still elevated, would consider right heart catheterization. 3. Sleep apnea: Uses BiPAP nightly, with supplemental oxygen. 4. Hypertension: Blood pressure has been normotensive and at times mildly hypotensive. Lisinopril on hold with last dose on 03/05/2024 as per primary hospitalist service. This may allow for more blood pressure to allow for continued diuresis. 5. Tobacco abuse: Strongly recommended smoking cessation. Extensive smoking history. 6. Acute respiratory failure with hypoxia and hypercapnia: Addressed by pulmonology. Breathing has improved. Continue to diurese. 7. Disposition: Cardiology will continue to follow. Although she has underlying pulmonary issues as well, she may benefit from heart failure program to help optimize her volume status going forward. Highly complex medical issues. Thank you for allowing me to participate in the care of your patient. Please call for any other questions or concerns. Sincerely, Aubrey Douglass M.D. History of Present Illness Reason for Consultation: "Pulmonary hypertension, right heart disease, etc." Requesting Physician: Colin Ferguson MD Attending Physician: Colin Ferguson MD History of Present Illness Ms. Mccurdy is a very pleasant 58-year-old female with a history significant for COPD, type 2 diabetes, B-cell lymphoma (s/p chemo) hypertension, dyslipidemia, and sleep apnea on BiPAP and supplemental oxygen nightly. She was seen this evening at approximately 6:30 PM. She was admitted on 03/04/2024 after going to her PCP office who referred her to the hospital. She has had shortness of breath for the past 1.5 months. She admits that she went without Lasix for 3 or 4 months as she ran out. She noted right leg mild edema, but otherwise no significant edema. She weighs herself periodically at home and did not notice any significant weight gain. She denies chest pain, syncope, near syncope, melena, hematochezia, or hematuria. She has had mild palpitations when she consumed significant amounts of coffee but has since reduced her caffeine consumption and therefore has not noted any significant palpitations. She has been on high flow nasal cannula for oxygen supplementation. Her pres enting oxygen saturation was 78%. High flow nasal cannula FiO2 has been weaned from 40 down to 30. She states that her shortness of breath has improved since presentation. While here, she has received intravenous Lasix including 40 mg today, 40 mg x 2 yesterday. Review of systems: As above. Review of systems otherwise negative/unremarkable. Family history: Father in his 50s from [place]. Social history: She started smoking in her 20s and smoked up to 3 packs/day up until December 2023. She then cut back on her smoking. She denies alcohol or drug abuse. . Lives alone. No biologic children. Had a stepchildren but they are not actively part of her life. She was alone in her hospital room. Allergies Allergy/AdvReac Type Severity Reaction Status Date / Time adhesive Allergy Unknown TEGADERM-SEVERE Verified 01/03/24 12:26 SKIN IRRITATION/RASH No Known Drug Allergies Allergy Unknown . Verified 01/03/24 12:26 Home Medications Medication Instructions Recorded Confirmed Type furosemide 40 mg tablet (Lasix) 40 mg PO QAM 02/13/19 03/04/24 History lisinopril 10 mg tablet 10 mg PO QAM 02/13/19 03/04/24 History metformin 500 mg tablet 1,000 mg PO BID 02/13/19 03/04/24 History metoprolol succinate 25 mg 25 mg PO QAM 02/13/19 03/04/24 History tablet,extended release 24 hr simvastatin 40 mg tablet 40 mg PO HS 02/13/19 03/04/24 History albuterol sulfate 90 mcg/actuation 1 inh inhalation QID PRN sob 08/09/22 03/04/24 History aerosol inhaler (Ventolin HFA) gabapentin 600 mg tablet 600 mg PO TID 08/09/22 03/04/24 History Patient History Medical History Lumbar radiculopathy Gallstones NO ISSUES WITH FOR MONTHS COPD (chronic obstructive pulmonary disease) Follicular lymphoma S/P CHEMO (IN REMISSION) Scoliosis Chronic back pain Diabetes mellitus, type 2 NIDDM History of B-cell lymphoma S/P CHEMO (IN REMISSION) Hypertension Hyperlipidemia On home oxygen therapy HS with CPAP Sleep apnea uses CPAP -> cpap has "" in june 2022. instructed to follow up with PCP regarding the CPAP. Surgical History History of oophorectomy, unilateral RIGHT History of back surgery (~1978) X 2. HARDWARE PRESENT History of esophagogastroduodenoscopy (EGD) History of colonoscopy W/ POLYPECTOMY Family History Uncle Family history of diabetes mellitus Diabetes Cancer Brother Family history of reaction to anesthesia Mother Cancer Grandmother Cancer Father Heart disease Social History Smoking Status: Current every day smoker Tobacco Type: Cigarettes Cigarettes Per Day: 5 cigarettes; Second Hand Exposure: Yes; Do You Dip or Chew Tobacco: No; Hx Alcohol Use: No Hx Substance Use: No Preferred Language: Panamanian Communication Ability: Effective Director Systems Required: No Beliefs That Will Affect Care: None marital status: Single Current Living Situation: Alone current occupational status: retired Feels Safe at Home: Yes Safety Concerns: Feels Safe At This Time Assistive Devices: CPAP, Oxygen - at Night and Walker Physical Exam Physical Exam: Gen.: No acute distress. Alert and oriented. HEENT: Anicteric sclera. Weak voice (patient report vocal cord issue). Neck: Mild JVD. No bruits. Normal carotid upstrokes bilaterally. Cardiac: No ventricular heave. Regular. Normal S1-S2. 1/6 systolic murmur. Pulmonary: Decreased breath sounds in general and Rales at the bases. Abdomen: Soft, nontender, nondistended, with normoactive bowel sounds. No bruits noted. Extremities: 2+ radial pulses bilaterally. 2+ posterior tibialis pulses bilaterally. 1+ bilateral lower extremity edema to the knees. No cyanosis. Psychiatric: Affect appears appropriate. Results & Data Vital Signs (Past 12 Hours) Vital Signs Temp Pulse Pulse Resp BP BP Pulse Ox 03/06/24 15:30 83 03/06/24 14:32 36.6 C 79 18 93/55 L 94 03/06/24 12:36 94 H 22 94 03/06/24 11:18 36.8 C 94 H 23 101/65 91 03/06/24 09:00 85 03/06/24 09:00 03/06/24 07:16 36.4 C L 89 18 108/62 95 03/06/24 07:15 79 20 94 O2 Del Method O2 Flow Rate FiO2 03/06/24 15:30 03/06/24 14:32 High Flow Nasal Cannula 30 30 03/06/24 12:36 High Flow Nasal Cannula 40 5 03/06/24 11:18 High Flow Nasal Cannula 03/06/24 09:00 03/06/24 09:00 High Flow Nasal Cannula 40 60 03/06/24 07:16 BiPAP 03/06/24 07:15 50 Intake & Output 03/04/24 03/05/24 03/06/24 03/07/24 06:59 06:59 06:59 06:59 Intake Total 100 / 100 240 / 240 795 / 795 Output Total 2500 / 2500 2700 / 2700 2175 / 2175 Balance -2400 / -2400 -2460 / -2460 -1380 / -1380 Weight 190 lb 11.198 oz 188 lb 4.396 oz Laboratory Results Laboratory Results - last 24 hr 03/06/24 03/06/24 03/06/24 05:36 07:50 12:14 Sodium 138 Potassium 4.6 D Chloride 91 L Carbon Dioxide 42 H* Anion Gap 5 BUN 17 Creatinine 0.42 L Est Cr Clr Drug Dosing 128.9 Est GFR ( Amer) 129.1 Est GFR (Non-Af Amer) 111.4 BUN/Creatinine Ratio 40.5 H Glucose 132 H POC Glucose 130 H 334 H* Estimat Average Glucose 137 Hemoglobin A1c 6.4 H Calcium 9.4 Magnesium 1.9 03/06/24 03/06/24 03/06/24 12:16 16:47 20:40 Sodium Potassium Chloride Carbon Dioxide Anion Gap BUN Creatinine Est Cr Clr Drug Dosing Est GFR ( Amer) Est GFR (Non-Af Amer) BUN/Creatinine Ratio Glucose POC Glucose 306 H* 134 H 201 H Estimat Average Glucose Hemoglobin A1c Calcium Magnesium Diagnostic Findings Labs reviewed and notable for slightly elevated BNP, normal renal function, normal potassium, normal sodium level, nonelevated transaminase levels, normal blood counts. Telemetry personally reviewed: Sinus rhythm. Nonsustained ventricular tachycardia on 03/05/2024. Echo 03/05/2024 report reviewed: Normal LV systolic function. EF 60 to 65%. Dilated right ventricle with normal systolic function. Moderate left atrial dilation. Sclerotic aortic valve without significant stenosis. Mild MR. Mild mitral stenosis. Moderate hypertension. History and physical report reviewed. Pulmonology report reviewed. ECG personally reviewed 03/04/2024: Sinus tachycardia [address] chest 03/04/2024 report reviewed: No PE. Pulmonary hypertension, pleural effusions, interlobular septal thickening and bronchial wall thickening reported by radiology. Medications Administered Current Inpatient Medications Acetaminophen (Acetaminophen 325 Mg Tab) 650 mg PO Q4H PRN PRN Reason: Pain or Fever Stop: 04/03/24 20:08 Budesonide (Budesonide 0.5 Mg/2 Ml Vial (Pulmicort)) 0.5 mg NEB BIDR [facility] Stop: 04/04/24 18:59 Last Admin: 03/06/24 19:25 Dose: 0.5 mg Dextrose (Dextrose 50% 50 Ml Syringe) 25 - 50 ml IV UD PRN; Protocol PRN Reason: Hypoglycemia Protocol Stop: 04/04/24 20:44 Enoxaparin Sodium (Enoxaparin Inj 40 Mg/0.4 Ml Syr) 40 mg SQ QAM [facility] Stop: 04/04/24 08:59 Last Admin: 03/06/24 09:02 Dose: 40 mg Formoterol Fumarate (Formoterol 20 Mcg/2 Ml Vial) 20 mcg INH BIDR [facility] Stop: 04/04/24 18:59 Last Admin: 03/06/24 19:25 Dose: 20 mcg Furosemide (Furosemide 40 Mg/4 Ml Vial) 40 mg IV BID17 [facility] Stop: 04/04/24 08:59 Last Admin: 03/05/24 17:24 Dose: 40 mg Furosemide (Furosemide Inj 20 Mg/2 Ml Vial) 20 mg IV DAILY [facility] Stop: 04/06/24 08:59 Gabapentin (Gabapentin 600 Mg Tab) 600 mg PO TID [facility] Stop: 04/03/24 20:59 Last Admin: 03/06/24 21:14 Dose: 600 mg Glucagon (Glucagon For Inj 1 Mg Vial) 1 mg IM UD PRN; Protocol PRN Reason: Hypoglycemia Protocol Stop: 04/04/24 20:44 Glucose (Glucose 40% Gel 15 Gm Tube) 15 - 30 gm PO UD PRN; Protocol PRN Reason: Hypoglycemia Protocol Stop: 04/04/24 20:44 Glucose (Glucose 10 Tab/Tube) 4 - 8 tab PO UD PRN; Protocol PRN Reason: Hypoglycemia Protocol Stop: 04/04/24 20:44 Insulin Aspart (Insulin Aspart Per Unit Charge) 0 units SC ACHS [facility] Stop: 04/04/24 16:29 Last Admin: 03/06/24 21:19 Dose: 2 units Insulin Glargine (Lantus Per Unit Charge) 10 units SQ HS [facility] Stop: 04/04/24 20:59 Last Admin: 03/06/24 21:19 Dose: 10 units Lisinopril (Lisinopril 10 Mg Tab) 10 mg PO QAM [facility] Stop: 04/04/24 08:59 Last Admin: 03/05/24 08:26 Dose: 10 mg Metoprolol Succinate (Metoprolol Succ 25mg Ext Rel Tab) 25 mg PO QAM [facility] Stop: 04/04/24 08:59 Last Admin: 03/06/24 09:03 Dose: 25 mg Miscellaneous (Remove Nicoderm Patch) 1 each N/A DAILY@0859 [facility] Stop: 04/04/24 08:58 Last Admin: 03/06/24 09:02 Dose: 1 each Miscellaneous (Carbohydrates For Hypoglycemia ) 15 - 30 gm PO UD PRN PRN Reason: Hypoglycemia Treatment Stop: 04/04/24 20:44 Nicotine (Nicotine 14 Mg/24 Hr Patch) 14 mg TD QAM [facility] Stop: 04/04/24 08:59 Last Admin: 03/06/24 09:03 Dose: 14 mg Ondansetron HCl (Ondansetron Inj 2 Mg/Ml 2 Ml Vial) 4 mg IV Q6H PRN PRN Reason: Nausea Stop: 04/03/24 20:08 Polyethylene Glycol (Polyethylene (Miralax) 17 Gm Pack) 17 gm PO DAILY PRN PRN Reason: Constipation Stop: 04/03/24 20:08 Simvastatin (Simvastatin 40 Mg Tab) 40 mg PO HS [facility] Stop: 04/03/24 21:54 Last Admin: 03/06/24 21:14 Dose: 40 mg Spironolactone (Spironolactone 25 Mg Tab) 25 mg PO QAM [facility] Stop: 04/06/24 08:59 PG Care Time/CCT Total # of Minutes Spent Total Time Spent with Patient: Total time spent is greater than 50% in coordination of care (as documented) at patient's floor/unit and/or counseling patient: Coding Level of Care Code 30152 INT INP/OBS CARE 3/75MIN Diagnoses Acute heart failure with preserved ejection fraction (HFpEF) I50.31 Acute respiratory failure with hypoxia and hypercapnia J96.01; J96.02 Hypertension I10 Tobacco abuse Z72.0 Pulmonary HTN I27.20
--- NOTE | 2024-03-07 06:06 | Electrocardiogram Report ---
Test Reason : Blood Pressure : / mmHG Vent. Rate : 107 BPM Atrial Rate : 107 BPM P-R Int : 150 ms QRS Dur : 084 ms QT Int : 358 ms P-R-T Axes : 031 072 036 degrees QTc Int : 477 ms Sinus tachycardia Otherwise normal ECG When compared with ECG of 08-DEC-2019 13:41, No significant change was found Confirmed by Parker Douglass ([id number]) on 03/07/2024 6:06:15 AM Referred By: Confirmed By:Parker Douglass
[2024-03-07 07:41] LABS: BUN Creatinine Ratio 48.8 (10-20); Blood Urea Nitrogen 20 mg/dl (6-23); Calcium 9.6 mg/dl (8.6-10.3); Carbon Dioxide > 45 mmol/L (21-32); Chloride 92 mmol/L (98-107); Creatinine Clr Calc Pharmacy 132.1 ml/min; Est GFR (African American) 130.1 ml/min; Est GFR (Non-African American) 112.3 ml/min; Glucose 125 mg/dl (70-99(Fasting)); Potassium 4.2 mmol/L (3.5-5.1); Sodium 139 mmol/L (136-145)
[2024-03-07 07:47] LABS: Thyroid Stimulating Hormone < 0.010 uIu/ml (0.300-4.500)
[2024-03-07] MEDS: FUROSEMIDE INJ 20 MG/2 ML VIAL IV SCH (08:18)
[2024-03-07] MEDS: SPIRONOLACTONE 25 MG TAB PO SCH (08:19)
--- NOTE | 2024-03-07 08:30 | Cardiology Progress Note ---
Date of Service March 07, 2024 Assessment & Plan (1) Acute heart failure with preserved ejection fraction (HFpEF): (2) Acute respiratory failure with hypoxia and hypercapnia: (3) Hypertension: (4) Tobacco abuse: (5) Pulmonary HTN: (6) Hyperthyroidism: Plan ASSESSMENT/PLAN: 1. Acute heart failure with preserved EF: She appears hypervolemic and breathing has improved with diuresis. Net fluid balance thus far is -7.8 L. Lasix has been down regulated by hospitalist service. Caution for contraction alkalosis. Monitor closely. Strict I's and O's. Daily weights. Low-sodium diet, less than 2000 mg daily. Prior to discharge, recommend SGLT2 inhibitor if no contraindication. 2. Pulmonary hypertension: Has known severe obstructive sleep apnea, long time smoker, and appears hypervolemic. Continue to diurese with close monitoring. Pulmonary is following for her pulmonary issues. Once euvolemic, would recommend reevaluating pulmonary pressures by repeating echo or pursuing right heart catheterization. If done via echo and pulmonary pressures still elevated, would consider right heart catheterization. 3. Sleep apnea: Uses BiPAP nightly, with supplemental oxygen. 4. Hypertension: Blood pressure has been normotensive and at times mildly hypotensive. Lisinopril on hold with last dose on 03/05/2024 as per primary hospitalist service. This may allow for more blood pressure to allow for continued diuresis. 5. Tobacco abuse: Strongly recommended smoking cessation. Extensive smoking history. 6. Acute respiratory failure with hypoxia and hypercapnia: Addressed by pulmonology. Breathing has improved. Continue to diurese. 7. Hypothyroidism: Could be contributing to her clinical presentation. Discussed with Dr. Ferguson. Defer treatment to primary hospitalist service. 8. Disposition: Cardiology will continue to follow. Heart failure program enrollment to help assist in the outpatient setting. I will be away from the hospital this evening. Please call on-call biotechnologist for questions or concerns. Will sign out to Dr. Subramanian who will be rounding tomorrow. Admission and Anticipated Discharge Date Admission Date: March 04, 2024 Subjective Patient seen earlier this morning. Breathing is stable. She denies chest pain, palpitations, syncope, near syncope. Remains on high flow nasal cannula. She was alone in her hospital room. Physical Exam Physical Exam: Gen.: No acute distress. Alert and oriented. HEENT: Anicteric sclera. Weak voice (patient report vocal cord issue). Neck: Mild JVD. Cardiac: No ventricular heave. Regular. Normal S1-S2. 1/6 systolic murmur. Pulmonary: Decreased breath sounds but otherwise clear to auscultation bilaterally. Abdomen: Soft, nontender, nondistended, with normoactive bowel sounds. No bruits noted. Extremities: 2+ radial pulses bilaterally. 2+ posterior tibialis pulses bilaterally. 1+ bilateral lower extremity edema to the knees. No cyanosis. Psychiatric: Affect appears appropriate. Results & Data Vital Signs (Past 12 Hours) Vital Signs Temp Pulse Pulse Resp BP BP Pulse Ox 03/07/24 07:35 36.4 C L 79 18 114/76 94 03/07/24 07:31 74 20 90 03/07/24 03:15 84 18 91 03/07/24 02:21 36.4 C L 84 20 125/79 92 03/06/24 23:00 36.9 C 78 20 120/83 92 03/06/24 22:05 87 18 92 03/06/24 22:00 88 20 82 L 03/06/24 21:55 89 O2 Del Method O2 Flow Rate FiO2 03/07/24 07:35 High Flow Nasal Cannula 03/07/24 07:31 High Flow Nasal Cannula 30 50 03/07/24 03:15 High Flow Nasal Cannula 30 50 03/07/24 02:21 High Flow Nasal Cannula 30 03/06/24 23:00 High Flow Nasal Cannula 30 03/06/24 22:05 High Flow Nasal Cannula 30 50 03/06/24 22:00 High Flow Nasal Cannula 30 30 03/06/24 21:55 Intake & Output 03/05/24 03/06/24 03/07/24 03/08/24 06:59 06:59 06:59 06:59 Intake Total 100 / 100 240 / 240 795 / 795 Output Total 2500 / 2500 2700 / 2700 3025 / 3025 Balance -2400 / -2400 -2460 / -2460 -2230 / -2230 Weight 190 lb 11.198 oz 188 lb 4.396 oz 188 lb 7.924 oz Laboratory Results Laboratory Results - last 24 hr 03/06/24 03/06/24 03/06/24 12:14 12:16 16:47 Sodium Potassium Chloride Carbon Dioxide Anion Gap BUN Creatinine Est Cr Clr Drug Dosing Est GFR ( Amer) Est GFR (Non-Af Amer) BUN/Creatinine Ratio Glucose POC Glucose 334 H* 306 H* 134 H Calcium TSH 03/06/24 03/07/24 03/07/24 20:40 06:38 07:59 Sodium 139 Potassium 4.2 Chloride 92 L Carbon Dioxide > 45 H* Anion Gap TNP BUN 20 Creatinine 0.41 L Est Cr Clr Drug Dosing 132.1 Est GFR ( Amer) 130.1 Est GFR (Non-Af Amer) 112.3 BUN/Creatinine Ratio 48.8 H Glucose 125 H POC Glucose 201 H 108 H Calcium 9.6 TSH < 0.010 L Diagnostic Findings Labs reviewed from 03/07/2024 demonstrated stable renal function, normal potassium, and undetectable TSH. Telemetry personally reviewed and notable for sinus rhythm. No arrhythmia. Medications Administered Current Inpatient Medications Acetaminophen (Acetaminophen 325 Mg Tab) 650 mg PO Q4H PRN PRN Reason: Pain or Fever Stop: 04/03/24 20:08 Budesonide (Budesonide 0.5 Mg/2 Ml Vial (Pulmicort)) 0.5 mg NEB BIDR [facility] Stop: 04/04/24 18:59 Last Admin: 03/07/24 07:30 Dose: 0.5 mg Dextrose (Dextrose 50% 50 Ml Syringe) 25 - 50 ml IV UD PRN; Protocol PRN Reason: Hypoglycemia Protocol Stop: 04/04/24 20:44 Enoxaparin Sodium (Enoxaparin Inj 40 Mg/0.4 Ml Syr) 40 mg SQ QAM [facility] Stop: 04/04/24 08:59 Last Admin: 03/07/24 08:17 Dose: 40 mg Formoterol Fumarate (Formoterol 20 Mcg/2 Ml Vial) 20 mcg INH BIDR [facility] Stop: 04/04/24 18:59 Last Admin: 03/07/24 07:29 Dose: 20 mcg Furosemide (Furosemide 40 Mg/4 Ml Vial) 40 mg IV BID17 [facility] Stop: 04/04/24 08:59 Last Admin: 03/05/24 17:24 Dose: 40 mg Furosemide (Furosemide Inj 20 Mg/2 Ml Vial) 20 mg IV DAILY [facility] Stop: 04/06/24 08:59 Last Admin: 03/07/24 08:18 Dose: 20 mg Gabapentin (Gabapentin 600 Mg Tab) 600 mg PO TID [facility] Stop: 04/03/24 20:59 Last Admin: 03/07/24 08:18 Dose: 600 mg Glucagon (Glucagon For Inj 1 Mg Vial) 1 mg IM UD PRN; Protocol PRN Reason: Hypoglycemia Protocol Stop: 04/04/24 20:44 Glucose (Glucose 40% Gel 15 Gm Tube) 15 - 30 gm PO UD PRN; Protocol PRN Reason: Hypoglycemia Protocol Stop: 04/04/24 20:44 Glucose (Glucose 10 Tab/Tube) 4 - 8 tab PO UD PRN; Protocol PRN Reason: Hypoglycemia Protocol Stop: 04/04/24 20:44 Insulin Aspart (Insulin Aspart Per Unit Charge) 0 units SC ACHS [facility] Stop: 04/04/24 16:29 Last Admin: 03/07/24 08:16 Dose: Not Given Insulin Glargine (Lantus Per Unit Charge) 10 units SQ HS [facility] Stop: 04/04/24 20:59 Last Admin: 03/06/24 21:19 Dose: 10 units Lisinopril (Lisinopril 10 Mg Tab) 10 mg PO QAM [facility] Stop: 04/04/24 08:59 Last Admin: 03/05/24 08:26 Dose: 10 mg Metoprolol Succinate (Metoprolol Succ 25mg Ext Rel Tab) 25 mg PO QAM [facility] Stop: 04/04/24 08:59 Last Admin: 03/07/24 08:19 Dose: 25 mg Miscellaneous (Remove Nicoderm Patch) 1 each N/A DAILY@0859 [facility] Stop: 04/04/24 08:58 Last Admin: 03/07/24 08:17 Dose: 1 each Miscellaneous (Carbohydrates For Hypoglycemia ) 15 - 30 gm PO UD PRN PRN Reason: Hypoglycemia Treatment Stop: 04/04/24 20:44 Nicotine (Nicotine 14 Mg/24 Hr Patch) 14 mg TD QAM [facility] Stop: 04/04/24 08:59 Last Admin: 03/07/24 08:18 Dose: 14 mg Ondansetron HCl (Ondansetron Inj 2 Mg/Ml 2 Ml Vial) 4 mg IV Q6H PRN PRN Reason: Nausea Stop: 04/03/24 20:08 Polyethylene Glycol (Polyethylene (Miralax) 17 Gm Pack) 17 gm PO DAILY PRN PRN Reason: Constipation Stop: 04/03/24 20:08 Simvastatin (Simvastatin 40 Mg Tab) 40 mg PO HS [facility] Stop: 04/03/24 21:54 Last Admin: 03/06/24 21:14 Dose: 40 mg Spironolactone (Spironolactone 25 Mg Tab) 25 mg PO QAM [facility] Stop: 04/06/24 08:59 Last Admin: 03/07/24 08:19 Dose: 25 mg PG Care Time/CCT Total # of Minutes Spent Total Time Spent with Patient: Total time spent is greater than 50% in coordination of care (as documented) at patient's floor/unit and/or counseling patient: Coding Level of Care Code 25097 SUB INP/OBS CARE 3/50MIN Diagnoses Acute heart failure with preserved ejection fraction (HFpEF) I50.31 Acute respiratory failure with hypoxia and hypercapnia J96.01; J96.02 Hypertension I10 Tobacco abuse Z72.0 Pulmonary HTN I27.20 Hyperthyroidism E05.90
[2024-03-07 09:33] LABS: T4 Free Thyroxine 2.37 ng/dl (0.61-1.60)
--- NOTE | 2024-03-07 09:47 | Pulmonology Progress Note ---
Date of Service March 07, 2024 Assessment & Plan (1) Acute respiratory failure with hypoxia and hypercapnia: (2) Acute exacerbation of CHF (congestive heart failure): (3) Severe obstructive sleep apnea: (4) Tobacco abuse: Plan IMPRESSION: 58-year-old female with a significant past medical history of morbid obesity, substantial smoking history, CHF, and severe sleep apnea who [facility] in the setting of profound hypoxemia with no other acute findings. RECOMMENDATIONS: 1. Hypoxia -again, symptoms multifactorial. Patient refused AVAPS overnight. We had a lengthy discussion about the utilization of this, particular in a patient who is to be using aggressive BiPAP settings at home. She we will try the device here. Continue with aggressive diuresis. Follow-up cardiovascular studies per cardiology recommendation if needed. Would aim for oxygen saturations at 85% or above. Wean oxygen as tolerated. 2. Pulmonary hypertension - Appreciated during recent echocardiogram. Would advocate for ongoing aggressive diuresis in a patient that is volume overloaded. Additionally, would aggressively manage the patient's severe sleep apnea as this certainly could be contributing to her pulmonary hypertension and associated symptoms as well. Discussed using AVAPS device with patient. 3. Severe obstructive sleep apnea -patient is generally noncompliant with her BiPAP settings at home. Agree with change to AVAPS while she is inpatient and s ee if she achieves benefit from that here and certainly prescription could be changed to reflect this in the outpatient setting. 4. Tobacco abuse - Patient is a daily smoker. Encouraged complete smoking cessation given her multiple comorbidities and ongoing symptoms. Thank you for allowing us to participate in the care of this patient. Pulmonary medicine will follow along. Admission and Anticipated Discharge Date Admission Date: March 04, 2024 Subjective Patient seen and evaluated at bedside. She did not wear AVAPS overnight. She reports no change in her symptoms today. She offers no complaints of shortness of breath, cough, wheezing, etc. Review of Systems Review of Systems: A complete 10 point review of systems was reviewed with the patient with pertinent positives and negatives as per history of present illness. All else were negative. Physical Exam Physical Exam: VITAL SIGNS - Vital signs and nursing notes were reviewed. GENERAL - 58-year-old female appearing her stated age who is in no acute distress. Communicates well with provider and answers questions appropriately. LUNGS - Auscultation reveals diminished breath sounds. CARDIAC - RRR with S1/S2. No murmur, rubs, or gallops appreciated. PSYCH - A&Ox3 and cooperates fully with examiner. Pt is very pleasant and interacts well with examiner. Results & Data Results & Data Vital Signs (Past 12 Hours) Vital Signs Temp Pulse Pulse Resp BP BP Pulse Ox 03/07/24 07:35 36.4 C L 79 18 114/76 94 03/07/24 07:31 74 20 90 03/07/24 03:15 84 18 91 03/07/24 02:21 36.4 C L 84 20 125/79 92 03/06/24 23:00 36.9 C 78 20 120/83 92 03/06/24 22:05 87 18 92 03/06/24 22:00 88 20 82 L 03/06/24 21:55 89 O2 Del Method O2 Flow Rate FiO2 03/07/24 07:35 High Flow Nasal Cannula 03/07/24 07:31 High Flow Nasal Cannula 30 50 03/07/24 03:15 High Flow Nasal Cannula 30 50 03/07/24 02:21 High Flow Nasal Cannula 30 03/06/24 23:00 High Flow Nasal Cannula 30 03/06/24 22:05 High Flow Nasal Cannula 30 50 03/06/24 22:00 High Flow Nasal Cannula 30 30 03/06/24 21:55 PG Care Time/CCT Total # of Minutes Spent Total Time Spent with Patient: Total time spent is greater than 50% in coordination of care (as documented) at patient's floor/unit and/or counseling patient: Coding Level of Care Code 75435 SUB INP/OBS CARE 2/35MIN Diagnoses Acute respiratory failure with hypoxia and hypercapnia J96.01; J96.02 Acute exacerbation of CHF (congestive heart failure) I50.9 Severe obstructive sleep apnea G47.33 Tobacco abuse Z72.0
[2024-03-07] MEDS: propylthiouraciL 50 MG TAB PO SCH (13:41)
--- NOTE | 2024-03-07 15:27 | Heart Failure Consultation ---
Date of Consultation March 07, 2024 Assessment & Plan (1) Acute heart failure with preserved ejection fraction (HFpEF): History of Present Illness Attending Physician: Colin Ferguson MD History of Present Illness Meet with patient in their hospital room. We discussed the nature of heart failure and the goals of the heart failure program. Patient is agreeable to ongoing participation and will be formally enrolled in the [facility] heart failure program. Patient advised to weigh themselves daily on their home scale. Notify the office if 2+ lb weight gain overnight or 5+ lb in 1 week. Low sodium diet r ecommended on discharge. Contact information provided. Patient will have scheduled outpatient follow up within 7 days of discharge. Please see full cardiology consult for additional recommendations and formal plan of care. Allergies Allergy/AdvReac Type Severity Reaction Status Date / Time adhesive Allergy Unknown TEGADERM-SEVERE Verified 01/03/24 12:26 SKIN IRRITATION/RASH No Known Drug Allergies Allergy Unknown . Verified 01/03/24 12:26 Home Medications Medication Instructions Recorded Confirmed Type furosemide 40 mg tablet (Lasix) 40 mg PO QAM 02/13/19 03/04/24 History lisinopril 10 mg tablet 10 mg PO QAM 02/13/19 03/04/24 History metformin 500 mg tablet 1,000 mg PO BID 02/13/19 03/04/24 History metoprolol succinate 25 mg 25 mg PO QAM 02/13/19 03/04/24 History tablet,extended release 24 hr simvastatin 40 mg tablet 40 mg PO HS 02/13/19 03/04/24 History albuterol sulfate 90 mcg/actuation 1 inh inhalation QID PRN sob 08/09/22 03/04/24 History aerosol inhaler (Ventolin HFA) gabapentin 600 mg tablet 600 mg PO TID 08/09/22 03/04/24 History Patient History Medical History Lumbar radiculopathy Gallstones NO ISSUES WITH FOR MONTHS COPD (chronic obstructive pulmonary disease) Follicular lymphoma S/P CHEMO (IN REMISSION) Scoliosis Chronic back pain Diabetes mellitus, type 2 NIDDM History of B-cell lymphoma S/P CHEMO (IN REMISSION) Hypertension Hyperlipidemia On home oxygen therapy HS with CPAP Sleep apnea uses CPAP -> cpap has "" in june 2022. instructed to follow up with PCP regarding the CPAP. Surgical History History of oophorectomy, unilateral RIGHT History of back surgery (~1978) X 2. HARDWARE PRESENT History of esophagogastroduodenoscopy (EGD) History of colonoscopy W/ POLYPECTOMY Family History Uncle Family history of diabetes mellitus Diabetes Cancer Brother Family history of reaction to anesthesia Mother Cancer Grandmother Cancer Father Heart disease Social History Smoking Status: Current every day smoker Tobacco Type: Cigarettes Cigarettes Per Day: 5 cigarettes; Second Hand Exposure: Yes; Do You Dip or Chew Tobacco: No; Hx Alcohol Use: No Hx Substance Use: No Preferred Language: Pakistani Communication Ability: Effective Broker In Charge Required: No Beliefs That Will Affect Care: None marital status: Single Current Living Situation: Alone current occupational status: retired Feels Safe at Home: Yes Safety Concerns: Feels Safe At This Time Assistive Devices: CPAP, Oxygen - at Night and Walker Results & Data Vital Signs (Past 12 Hours) Vital Signs Temp Pulse Resp BP Pulse Ox O2 Del Method O2 Flow Rate 03/07/24 14:35 67 18 91 High Flow Nasal Cannula 30 03/07/24 11:49 98.4 F 74 22 96/62 L 95 High Flow Nasal Cannula 03/07/24 10:39 84 20 94 High Flow Nasal Cannula 30 03/07/24 08:00 High Flow Nasal Cannula 30 03/07/24 07:35 97.5 F L 79 18 114/76 94 High Flow Nasal Cannula 03/07/24 07:31 74 20 90 High Flow Nasal Cannula 30 FiO2 03/07/24 14:35 45 03/07/24 11:49 03/07/24 10:39 50 03/07/24 08:00 50 03/07/24 07:35 03/07/24 07:31 50 Coding Level of Care Code None Diagnoses Acute heart failure with preserved ejection fraction (HFpEF) I50.31
--- NOTE | 2024-03-07 19:16 | Hospitalist Progress Note ---
Date of Service March 07, 2024 Assessment & Plan (1) Hyperthyroidism: Plan: new diagnosis has multinodular goiter - had thyroid u/s at [facility] several months ago I spoke with Dr Arun Obregon from [facility] Endocrinology who reviewed her u/s results, TFTs, and clinical case In light of the distinct possibility that the hyperthyroidism is worsening her cardiac status he advised the following -- 1. PTU 200mg TID x 4-5 days 2. Then, at hospital d/c, change to methimazole 15mg BID She will need to see him in f/u after discharge for ongoing regulation of this issue Appreciate his assistance (2) Multiple thyroid nodules: Plan: records obtained from [facility] she has multiple nodules, several >1cm biopsy of dominant nodule advised by ENT but she has not had such yet to date will ultimately defer this to Dr Obregon once he sees her in clinic see #1 above (3) Acute respiratory failure with hypoxia and hypercapnia: Plan: multi-factorial -- CHF, possible underlying COPD with exacerbation, severe pulmonary HTN, etc. can't rule out aspiration contributing as well but there is no discrete pneumonia on imaging nor evidence of any infectious process at this time BIPAP with sleep (or AVAPS) HFNC while awake and wean as tolerated keep sats 88-92% treat individual issues as below (4) Acute heart failure with preserved ejection fraction (HFpEF): Plan: EF preserved - 60-65% grade 1 diastolic dysfunction RV is dilated but systolic function is preserved imaging c/w volume overload she has diuresed considerably since admission cont IV lasix daily wean O2 as tolerated hold lisinopril to allow more room for her BP and diuresis cont meto succ appreciate recs from [facility] Cardiology, Dr Douglass (5) Pulmonary HTN: Plan: severe on echo likely contributing to high o2 requirements pulmonary and cardiology consults apprecaited suspect patient will ultimately need right heart cath to confirm PA pressures, etc at minimum will need repeat echo after discharge to reassess PA pressures cont to diurese will need to be assessed for daytime O2 closer to discharge (6) COPD (chronic obstructive pulmonary disease): Plan: possible/suspected I looked at old [facility] and new [facility] and cannot find a copy of any PFTs [id number] there is reference to severe COPD in some records in light of extensive smoking history and her hypercapnia with wheezing she likely does have baseline COPD but will need formal PFTs after discharge added pulmicort nebs BID added long-acting B2 agonist BID wheezing resolved; IV steroids stopped can't rule out that her pulm edema was the cause of some of the wheezing pulm consult appreciated (7) Hypomagnesemia: Plan: 1.5 on arrival replaced resolved (8) Diabetes mellitus, type 2: Plan: hold metformin a1c 6.3% in 2022 a1c this admission 6.4% cont basal-bolus insulin, BSG checks, etc (9) Severe obstructive sleep apnea: Plan: follows with Dr Maria from sleep medicine Cont BIPAP with home settings - Blend O2 to keep sats 90-92% her neighbor may be able to bring her home unit in (10) Tobacco abuse: Plan: hx 1/2 ppd, quit within the last week agreeable to nicotine patch - use 14mg/day (11) Hypertension: Plan: Hold lisinopril to allow more room in BP while diuresing Cont meto succinate (12) History of B-cell lymphoma: Plan: noted in remission imaging studies without any pathological lymphadenopathy no prior h/o radiation - just chemotherapy (13) Unilateral vocal cord paralysis: Plan: left dx at ENT - [facility] in 11/2023 uncertain etiology she is reporting some dysphagia asked speech therapy to perform swallow eval to ensure she is not aspirating they are planning a FEES study while she is here (14) DVT prophylaxis: Plan: lovenox daily Plan appreciate pulm and cards consults attempted to call her neighbor Juliana at her request - no answer; called on 03/06 attempted to call her brother who has a [place] address - no answer, there was no voicemail greeting, thus left generic message but did not leave patient details - called on 03/06 will attempt to call again this weekend care d/w Dr Henry and Dr Obregon complex care coordination Admission and Anticipated Discharge Date Admission Date: March 04, 2024 Subjective sitting in chair continues to feel better each day HFNC parameters are better still with cough but improved denies dyspnea with moving from bed to chair eating well we had lengthy discussion about her hyperthyroidism that was found this am and plan of care for it tele overnight - NSR Review of Systems Review of Systems: gen - denies any fevers; denies weight loss cv - no cp pulm - see HPI GI - no diarrhea; no abd pain neuro - no tremors Physical Exam Physical Exam: gen - sitting in chair, no distress, awake/alert, overall appearance looks good today neck - mild JVD improved mouth - MMM voice - hoarse, low-pitched heart - RRR, s1 s2, 1/6 systolic murmur LSB lungs - wheezes resolved; mild crackles both bases but less than yesterday; no distress or accessory muscle usage; airation better today abd - soft NT ND BS+ ext - trace edema, pulses 2+ b/l psych - a/o x 3 Results & Data Results & Data Vital Signs (Past 12 Hours) Vital Signs Temp Pulse Resp BP Pulse Ox O2 Del Method O2 Flow Rate 03/07/24 15:58 37.2 C 64 24 99/63 L 95 High Flow Nasal Cannula 03/07/24 14:35 67 18 91 High Flow Nasal Cannula 30 03/07/24 11:49 36.9 C 74 22 96/62 L 95 High Flow Nasal Cannula 03/07/24 10:39 84 20 94 High Flow Nasal Cannula 30 03/07/24 08:00 High Flow Nasal Cannula 30 03/07/24 07:35 36.4 C L 79 18 114/76 94 High Flow Nasal Cannula 03/07/24 07:31 74 20 90 High Flow Nasal Cannula 30 FiO2 03/07/24 15:58 03/07/24 14:35 45 03/07/24 11:49 03/07/24 10:39 50 03/07/24 08:00 50 03/07/24 07:35 03/07/24 07:31 50 Laboratory Results Laboratory Results - last 24 hr 03/06/24 03/07/24 03/07/24 20:40 06:38 07:59 Sodium 139 Potassium 4.2 Chloride 92 L Carbon Dioxide > 45 H* Anion Gap TNP BUN 20 Creatinine 0.41 L Est Cr Clr Drug Dosing 132.1 Est GFR ( Amer) 130.1 Est GFR (Non-Af Amer) 112.3 BUN/Creatinine Ratio 48.8 H Glucose 125 H POC Glucose 201 H 108 H Calcium 9.6 TSH < 0.010 L Free T4 2.37 H 03/07/24 03/07/24 11:54 17:00 Sodium Potassium Chloride Carbon Dioxide Anion Gap BUN Creatinine Est Cr Clr Drug Dosing Est GFR ( Amer) Est GFR (Non-Af Amer) BUN/Creatinine Ratio Glucose POC Glucose 157 H 94 Calcium TSH Free T4 PG Care Time/CCT Total # of Minutes Spent Total Time Spent with Patient: Total time spent is greater than 50% in coordination of care (as documented) at patient's floor/unit and/or counseling patient: Coding Level of Care Code 96466 SUB INP/OBS CARE 3/50MIN Diagnoses Hyperthyroidism E05.90 Multiple thyroid nodules E04.2 Acute respiratory failure with hypoxia and hypercapnia J96.01; J96.02 Acute heart failure with preserved ejection fraction (HFpEF) I50.31 Pulmonary HTN I27.20 COPD (chronic obstructive pulmonary disease) J44.9 Hypomagnesemia E83.42 Diabetes mellitus, type 2 E11.9 Severe obstructive sleep apnea G47.33 Tobacco abuse Z72.0 Hypertension I10 History of B-cell lymphoma Z85.72 Unilateral vocal cord paralysis J38.01 DVT prophylaxis Z29.9
--- NOTE | 2024-03-08 08:08 | Pulmonology Progress Note ---
Date of Service March 08, 2024 Assessment & Plan (1) Acute respiratory failure with hypoxia and hypercapnia: (2) Acute exacerbation of CHF (congestive heart failure): (3) Severe obstructive sleep apnea: (4) Tobacco abuse: Plan IMPRESSION: 58-year-old female with a significant past medical history of morbid obesity, substantial smoking history, CHF, and severe sleep apnea who presents to the Medical Center in the setting of profound hypoxemia. She has evidence of RV volume overload on echocardiogram and may have shunt physiology. She is found to be hypercapnic and has a history of sleep disordered breathing/obesity hypoventilation syndrome from RECOMMENDATIONS: 1. Hypoxia -multifactorial with combinations of hypercarbia, atelectasis, COPD, pulmonary hypertension and potential shunt physiology. Given that she has made significant improvements with diuresis, suspected the major component may be fluid overload. Continue to wean oxygen as tolerated defending an oxygen saturation of 88%. She will likely need supplemental oxygen at discharge and once her requirement is down to 4 to 6 L, can consider transition to the outpatient setting. Continue out of bed to chair is much as possible as well as incentive spirometry. 2. Pulmonary hypertension - Appreciated during recent echocardiogram. Continue diuresis until BUN and creatinine bump. Her bicarb is significantly elevated on her BMP however I suspect this is compensation for her chronically elevated CO2 levels. Will give a dose of Diamox today and follow. With regards to her elevated PA pressures, suspect this is WHO class II and III. No indication for right heart catheterization currently until the patient's volume status is optimized and her underlying contributing medical factors (COPD, hypoxemia, and sleep disordered breathing) are effectively treated. Recommend repeat echocardiogram in 3 to 4 months. 3. Severe obstructive sleep apnea -continue AVAPS. At discharge the patient should have a prescription for AVAPS given her significant hypoxemic and hypercarbic respiratory failure. 4. Tobacco abuse - Patient is a daily smoker. Encouraged complete smoking cessation given her multiple comorbidities and ongoing symptoms. Patient is making progress. Will continue to follow with you Admission and Anticipated Discharge Date Admission Date: March 04, 2024 Subjective Patient seen and examined. EMR reviewed. 24-hour events noted. The patient has been able to significantly wean her oxygen. She is now off of heated high flow system and down to 10 L/min with oxygen saturations in the mid to high 90% range. She feels her breathing is better. She is occasionally coughing. She has had some improvement of her lower extremity edema but she continues to remain fairly edematous. She sitting up in a chair. She overall feels that she is making progress and has no new complaints Review of Systems 2 Review of Systems: All systems reviewed & are unremarkable except as noted in Subjective Physical Exam 2 Constitutional: WD/WN, vitals as above Neck: trachea midline, no thyromegaly Respiratory: no respiratory distress, no labored breathing, no cough and not tachypneic Auscultation: + diminished lung sounds; no crackles and no wheezes Cardiovascular: Rate/Rhythm: regular rate Heart Sounds: normal S1 and normal S2; no murmur Extremities: + edema Gastrointestinal (Abdomen): normal bowel sounds, soft, nontender, no hepatosplenomegaly Musculoskeletal: Extremities: extremities normal to inspection Skin: no rashes, warm and dry Neurologic: Nonfocal exam Lymphatic: no cervical lymphadenopathy Results & Data Results & Data Vital Signs (Past 12 Hours) Vital Signs Temp Pulse Pulse Resp BP BP Pulse Ox 03/08/24 07:33 72 20 94 03/08/24 05:58 69 18 92 03/08/24 03:04 36.5 C 56 L 17 117/70 96 03/08/24 02:34 61 22 96 03/07/24 23:31 36.5 C 72 17 110/69 95 03/07/24 23:10 57 L 03/07/24 22:05 69 20 94 03/07/24 20:55 36.6 C 68 18 116/67 98 03/07/24 20:12 O2 Del Method O2 Flow Rate FiO2 03/08/24 07:33 Nasal Cannula 10 03/08/24 05:58 Nasal Cannula 10 03/08/24 03:04 BiPAP 03/08/24 02:34 40 03/07/24 23:31 BiPAP 03/07/24 23:10 03/07/24 22:05 40 03/07/24 20:55 High Flow Nasal Cannula 03/07/24 20:12 High Flow Nasal Cannula Laboratory Results 03/05/24 05:50 03/07/24 06:38 Diagnostic Findings No new imaging PG Care Time/CCT Total # of Minutes Spent Total Time Spent with Patient: Total time spent is greater than 50% in coordination of care (as documented) at patient's floor/unit and/or counseling patient: Coding Level of Care Code 87746 SUB INP/OBS CARE MIN Diagnoses Acute respiratory failure with hypoxia and hypercapnia J96.01; J96.02 Acute exacerbation of CHF (congestive heart failure) I50.9 Severe obstructive sleep apnea G47.33 Tobacco abuse Z72.0
[2024-03-08 09:08] LABS: BUN Creatinine Ratio 37.8 (10-20); Calcium 9.5 mg/dl (8.6-10.3); Creatinine Clr Calc Pharmacy 122.1 ml/min; Est GFR (African American) 126.2 ml/min; Est GFR (Non-African American) 108.9 ml/min; Magnesium 1.9 mg/dl (1.7-2.4); Potassium 4.7 mmol/L (3.5-5.1)
[2024-03-08] MEDS: acetaZOLAMIDE 250 MG TAB PO SCH (09:51)
--- NOTE | 2024-03-08 11:39 | Cardiology Progress Note ---
Date of Service March 08, 2024 Assessment & Plan (1) Acute heart failure with preserved ejection fraction (HFpEF): Plan: -continues to improve with intravenous diuretics. -continue low-salt diet. -continue metoprolol succinate, lisinopril, and spironolactone. -consider SGLT2 inhibitor. (2) Acute respiratory failure with hypoxia and hypercapnia: Plan: -multifactorial. -pressure she is Pulmonary input. (3) Hypertension: Plan: -adequate control on current regimen. (4) Pulmonary HTN: Plan: -known severe obstructive sleep apnea and tobacco abuse. -once euvolemic, re-evaluate pulmonary pressures with an echocardiogram versus right heart catheterization. Plan ASSESSMENT/PLAN: 1. Acute heart failure with preserved EF: She appears hypervolemic and breathing has improved with diuresis. Net fluid balance thus far is -7.8 L. Lasix has been down regulated by hospitalist service. Caution for contraction alkalosis. Monitor closely. Strict I's and O's. Daily weights. Low-sodium diet, less than 2000 mg daily. Prior to discharge, recommend SGLT2 inhibitor if no contraindication. 2. Pulmonary hypertension: Has known severe obstructive sleep apnea, long time smoker, and appears hypervolemic. Continue to diurese with close monitoring. Pulmonary is following for her pulmonary issues. Once euvolemic, would recommend reevaluating pulmonary pressures by repeating echo or pursuing right heart catheterization. If done via echo and pulmonary pressures still elevated, would consider right heart catheterization. 3. Sleep apnea: Uses BiPAP nightly, with supplemental oxygen. 4. Hypertension: Blood pressure has been normotensive and at times mildly hypotensive. Lisinopril on hold with last dose on 03/05/2024 as per primary hospitalist service. This may allow for more blood pressure to allow for continued diuresis. 5. Tobacco abuse: Strongly recommended smoking cessation. Extensive smoking history. 6. Acute respiratory failure with hypoxia and hypercapnia: Addressed by pulmonology. Breathing has improved. Continue to diurese. 7. Hypothyroidism: Could be contributing to her clinical presentation. Discussed with Dr. Ferguson. Defer treatment to primary hospitalist service. 8. Disposition: Cardiology will continue to follow. Heart failure program enrollment to help assist in the outpatient setting. I will be away from the hospital this evening. Please call on-call environmental programs manager for questions or concerns. Will sign out to Dr. Subramanian who will be rounding tomorrow. Admission and Anticipated Discharge Date Admission Date: March 04, 2024 Subjective The patient is resting comfortably in bedside chair without complaints of chest pain. Her dyspnea has improved dramatically. Physical Exam Physical Exam: In general is well-developed well-nourished white female no acute distress. HEENT exam is negative. Neck is supple with full carotid upstrokes. No obvious bruits. Jugular venous pressure is difficult to assess. Cardiovascular exam reveals a regular rhythm with distant heart sounds. No obvious murmurs or S3. Lungs are clear without rales, rhonchi or wheezes. Abdomen is obese without bruits. Extremities reveal intact radial artery pulses bilaterally. Trace pretibial edema. Results & Data Vital Signs (Past 12 Hours) Vital Signs Temp Pulse Pulse Resp BP Pulse Ox O2 Del Method 03/08/24 08:03 36.6 C 59 L 20 96/63 L 94 High Flow Nasal Cannula 03/08/24 08:00 Nasal Cannula 03/08/24 07:33 72 20 94 Nasal Cannula 03/08/24 05:58 69 18 92 Nasal Cannula 03/08/24 03:04 36.5 C 56 L 17 117/70 96 BiPAP 03/08/24 02:34 61 22 96 O2 Flow Rate FiO2 03/08/24 08:03 11.0 03/08/24 08:00 10 03/08/24 07:33 10 03/08/24 05:58 10 03/08/24 03:04 03/08/24 02:34 40 Laboratory Results clerk supervisor is benign. PG Care Time/CCT Total # of Minutes Spent Total Time Spent with Patient: Total time spent is greater than 50% in coordination of care (as documented) at patient's floor/unit and/or counseling patient: Coding Level of Care Code 54932 SUB INP/OBS CARE 3/50MIN Diagnoses Acute heart failure with preserved ejection fraction (HFpEF) I50.31 Acute respiratory failure with hypoxia and hypercapnia J96.01; J96.02 Hypertension I10 Pulmonary HTN I27.20
--- NOTE | 2024-03-08 18:36 | Hospitalist Progress Note ---
Date of Service March 08, 2024 Assessment & Plan (1) Hyperthyroidism: Plan: new diagnosis has multinodular goiter - had thyroid u/s at [facility] several months ago showing such I spoke with Dr Arun Obregon from [facility] Endocrinology on 03/07 informally who r eviewed her u/s results, TFTs, and clinical case In light of the distinct possibility that the hyperthyroidism is worsening her cardiac status we discussed the following plan - 1. PTU 200mg TID x 4-5 days 2. Then, at hospital d/c, change to methimazole 15mg BID She will need to see him in f/u after discharge for ongoing care Appreciate his assistance (2) Multiple thyroid nodules: Plan: records obtained from [facility] she has multiple nodules, several >1cm biopsy of dominant nodule advised by ENT but she has not had such yet to date will ultimately defer this to Dr Obregon once he sees her in clinic see #1 above (3) Acute respiratory failure with hypoxia and hypercapnia: Plan: IMPROVING peak O2 requirement -- HFNC, about 40 L, 70% FiO2 down to 11 L wall-mounted high-flow today multi-factorial etiologies -- decompensated CHF, ?COPD, severe pulmonary HTN, etc. can't rule out aspiration contributing as well but there is no discrete pneumonia on imaging nor evidence of any infectious process at this time BIPAP with sleep (or AVAPS) HFNC while awake and wean as tolerated keep sats 88-92% treat individual issues as below (4) Acute heart failure with preserved ejection fraction (HFpEF): Plan: improving volume status EF preserved - 60-65% grade 1 diastolic dysfunction RV is dilated but systolic function is preserved she has diuresed considerably since admission cont IV lasix daily she has worsening metabolic alkalosis -- pulmonary ordered diamox 250mg BID wean O2 as tolerated hold lisinopril to allow more room for her BP and diuresis cont meto succ appreciate recs from [facility] Cardiology as well as [facility] Pulmonary (5) Pulmonary HTN: Plan: severe on echo likely contributing to high o2 requirements pulmonary and cardiology consults apprecaited suspect patient will ultimately need right heart cath to confirm PA pressures, etc at minimum will need repeat echo after discharge to reassess PA pressures - 2-3 months? cont to diurese will need to be assessed for daytime O2 closer to discharge (6) COPD (chronic obstructive pulmonary disease): Plan: possible/suspected I looked at old [employer] and new [employer] and cannot find a copy of any PFTs [id number] there is reference to severe COPD in some records in light of extensive smoking history and her hypercapnia with wheezing she likely does have baseline COPD but will need formal PFTs after discharge cont pulmicort nebs BID cont long-acting B2 agonist BID wheezing resolved; IV steroids stopped can't rule out that her pulm edema was the cause of some of the wheezing pulm consult appreciated (7) Hypomagnesemia: Plan: 1.5 on arrival replaced resolved mag level today 1.9 (8) Diabetes mellitus, type 2: Plan: hold metformin a1c 6.3% in 2022 a1c this admission 6.4% cont basal-bolus insulin, BSG checks, etc (9) Severe obstructive sleep apnea: Plan: follows with Dr Maria from sleep medicine Cont BIPAP with home settings - Blend O2 to keep sats 90-92% her neighbor may be able to bring her home unit in but while here will use AVAPS (10) Tobacco abuse: Plan: hx 1/2 ppd, quit within the last week agreeable to nicotine patch - use 14mg/day (11) Hypertension: Plan: Hold lisinopril to allow more room in BP while diuresing Cont meto succinate (12) History of B-cell lymphoma: Plan: noted in remission imaging studies without any pathological lymphadenopathy no prior h/o radiation - just chemotherapy (13) Unilateral vocal cord paralysis: Plan: left dx at ENT - [facility] in 11/2023 uncertain etiology she is reporting some dysphagia asked speech therapy to perform swallow eval to ensure she is not aspirating they are planning a FEES study while she is here (14) DVT prophylaxis: Plan: lovenox daily Plan appreciate pulm and cards consults attempted to call her neighbor Juliana - [phone] at her request - no answer; called on 03/06 and again today - no answer, unable to leave a message attempted to call her brother who has a [place] address - no answer, there was no voicemail greeting, thus left generic message but did not leave patient details - called on 03/06; also attempted another call today w/o success progressing try to d/c frank tomorrow obtain PT consult Admission and Anticipated Discharge Date Admission Date: March 04, 2024 Subjective tele stable overnight - NSR pt w/o any complaints she feels considerably better cough improved dyspnea much better eating well HFNC now down to 11 L Review of Systems Review of Systems: cv - no chest pain pulm - no significant sputum; no wheezing GI - no abd pain or N/V Physical Exam Physical Exam: gen - sitting in chair, NAD neck - mild JVD sitting upright 90 degrees mouth - MMM voice - hoarse, low-pitched heart - RRR, s1 s2, 1/6 systolic murmur LSB lungs - mild crackles both bases; no distress or accessory muscle usage; airation fair-good abd - soft NT ND BS+ ext - trace-1+ edema b/l, pulses 2+ b/l psych - a/o x 3 but seems sleepy today Results & Data Results & Data Vital Signs (Past 12 Hours) Vital Signs Temp Pulse Resp BP Pulse Ox O2 Del Method O2 Flow Rate 03/08/24 15:53 36.9 C 60 19 91/58 L 95 High Flow Nasal Cannula 11.0 03/08/24 12:11 36.4 C L 65 18 96/62 L 95 High Flow Nasal Cannula 11.0 03/08/24 08:03 36.6 C 59 L 20 96/63 L 94 High Flow Nasal Cannula 11.0 03/08/24 08:00 Nasal Cannula 10 03/08/24 07:33 72 20 94 Nasal Cannula 10 Laboratory Results Laboratory Results - last 24 hr 03/07/24 03/08/24 03/08/24 20:31 07:59 08:33 Sodium 137 Potassium 4.7 Chloride 91 L Carbon Dioxide 44 H* Anion Gap 2 L BUN 17 Creatinine 0.45 L Est Cr Clr Drug Dosing 122.1 Est GFR ( Amer) 126.2 Est GFR (Non-Af Amer) 108.9 BUN/Creatinine Ratio 37.8 H Glucose 84 POC Glucose 139 H 77 Calcium 9.5 Magnesium 1.9 03/08/24 03/08/24 12:08 17:11 Sodium Potassium Chloride Carbon Dioxide Anion Gap BUN Creatinine Est Cr Clr Drug Dosing Est GFR ( Amer) Est GFR (Non-Af Amer) BUN/Creatinine Ratio Glucose POC Glucose 126 H 108 H Calcium Magnesium PG Care Time/CCT Total # of Minutes Spent Total Time Spent with Patient: Total time spent is greater than 50% in coordination of care (as documented) at patient's floor/unit and/or counseling patient: Coding Level of Care Code 91916 SUB INP/OBS CARE 2/35MIN Diagnoses Hyperthyroidism E05.90 Multiple thyroid nodules E04.2 Acute respiratory failure with hypoxia and hypercapnia J96.01; J96.02 Acute heart failure with preserved ejection fraction (HFpEF) I50.31 Pulmonary HTN I27.20 COPD (chronic obstructive pulmonary disease) J44.9 Hypomagnesemia E83.42 Diabetes mellitus, type 2 E11.9 Severe obstructive sleep apnea G47.33 Tobacco abuse Z72.0 Hypertension I10 History of B-cell lymphoma Z85.72 Unilateral vocal cord paralysis J38.01 DVT prophylaxis Z29.9
[2024-03-09 06:00] LABS: Base Excess VBG 11.1 mEq/L; HCO3 VBG 41 mmol/L; Oxygen Saturation VBG 80.7 %; PCO2 VBG 79 mmHg (38-50); PO2 VBG 51 mmHg; pH VBG 7.32 (7.36-7.41)
[2024-03-09 06:32] LABS: BUN Creatinine Ratio 38.1 (10-20); Calcium 9.5 mg/dl (8.6-10.3); Creatinine Clr Calc Pharmacy 129.3 ml/min; Est GFR (African American) 129.1 ml/min; Est GFR (Non-African American) 111.4 ml/min; Potassium 4.4 mmol/L (3.5-5.1)
--- NOTE | 2024-03-09 08:09 | Pulmonology Progress Note ---
Date of Service March 09, 2024 Assessment & Plan (1) Acute respiratory failure with hypoxia and hypercapnia: (2) Acute exacerbation of CHF (congestive heart failure): (3) Severe obstructive sleep apnea: (4) Tobacco abuse: Plan IMPRESSION: 58-year-old female with a significant past medical history of morbid obesity, substantial smoking history, CHF, and severe sleep apnea who [facility] to the [facility] in the setting of profound hypoxemia. She has evidence of RV volume overload on echocardiogram and may have shunt physiology. She is found to be hypercapnic and has a history of sleep disordered breathing/obesity hypoventilation syndrome from RECOMMENDATIONS: 1. Hypoxia -multifactorial with combinations of hypercarbia, atelectasis, COPD, pulmonary hypertension and potential shunt physiology. Given that she has made significant improvements with diuresis, suspected the major component may be fluid overload. Continue to wean oxygen as tolerated defending an oxygen saturation of 88%. Oxygen requirement continues to improve. She will likely need supplemental oxygen at discharge and once her requirement is down to 4 to 6 L, can consider transition to the outpatient setting. Continue out of bed to chair is much as possible as well as incentive spirometry. 2. Pulmonary hypertension - Appreciated during recent echocardiogram. Continue diuresis until BUN and creatinine bump. Her bicarb is significantly elevated on her BMP however I suspect this is compensation for her chronically elevated CO2 levels. Continue brief course of Diamox today and follow. With regards to her elevated PA pressures, suspect this is WHO class II and III. No indication for right heart catheterization currently until the patient's volume status is optimized and her underlying contributing medical factors (COPD, hypoxemia, and sleep disordered breathing) are effectively treated. Recommend repeat echocardiogram in 3 to 4 months. 3. Severe obstructive sleep apnea -continue AVAPS. At discharge the patient should have a prescription for AVAPS given her significant hypoxemic and hypercarbic respiratory failure. 4. Tobacco abuse - Patient is a daily smoker. Encouraged complete smoking cessation given her multiple comorbidities and ongoing symptoms. 5. Hypercarbic respiratory failure: Blood gas this morning showed a pH of 7.32 with a pCO2 of 80. pH may have been aggravated by administration of Diamox yesterday. Continue AVAPS at night. Outpatient pulmonary function testing recommended. Patient is making progress. Will continue to follow with you Admission and Anticipated Discharge Date Admission Date: March 04, 2024 Subjective Patient seen and examined. She sitting up in a chair. She thinks her breathing is improved. She states she did use noninvasive positive pressure ventilation all night last night. She is coughing less. Her lower extremity edema continues to improve. She overall feels like she is making progress. Review of Systems 2 Review of Systems: All systems reviewed & are unremarkable except as noted in Subjective Physical Exam 2 Constitutional: WD/WN, vitals as above Neck: trachea midline, no thyromegaly Respiratory: no respiratory distress, no labored breathing, no cough and not tachypneic Auscultation: + diminished lung sounds; no crackles and no wheezes Cardiovascular: Rate/Rhythm: regular rate Heart Sounds: normal S1 and normal S2; no murmur Extremities: + edema Gastrointestinal (Abdomen): normal bowel sounds, soft, nontender, no hepatosplenomegaly Musculoskeletal: Extremities: extremities normal to inspection Skin: no rashes, warm and dry Lymphatic: no cervical lymphadenopathy Results & Data Results & Data Vital Signs (Past 12 Hours) Vital Signs Temp Pulse Pulse Resp BP BP Pulse Ox 03/09/24 07:56 36.4 C L 60 18 129/72 97 03/09/24 07:11 68 18 97 03/09/24 03:00 36.3 C L 61 18 111/74 98 03/09/24 02:24 60 17 95 03/08/24 23:26 36.5 C 60 17 123/75 99 03/08/24 21:58 55 L 03/08/24 21:37 58 L 21 96 O2 Del Method O2 Flow Rate FiO2 03/09/24 07:56 High Flow Nasal Cannula 8.0 03/09/24 07:11 Nasal Cannula 10 03/09/24 03:00 BiPAP 03/09/24 02:24 40 03/08/24 23:26 BiPAP 03/08/24 21:58 03/08/24 21:37 40 Laboratory Results 03/05/24 05:50 03/09/24 05:51 Diagnostic Findings No new imaging PG Care Time/CCT Total # of Minutes Spent Total Time Spent with Patient: Total time spent is greater than 50% in coordination of care (as documented) at patient's floor/unit and/or counseling patient: Coding Level of Care Code 67840 SUB INP/OBS CARE 2/35MIN Diagnoses Acute respiratory failure with hypoxia and hypercapnia J96.01; J96.02 Acute exacerbation of CHF (congestive heart failure) I50.9 Severe obstructive sleep apnea G47.33 Tobacco abuse Z72.0
--- NOTE | 2024-03-09 18:40 | Hospitalist Progress Note ---
Date of Service March 09, 2024 Assessment & Plan (1) Hyperthyroidism: Plan: new diagnosis has multinodular goiter - had thyroid u/s at [facility] several months ago showing such I spoke with Dr Arun Obregon from [facility] Endocr[facility]ology on 03/07 informally who r eviewed her u/s results, TFTs, and clinical case In light of the distinct possibility that the hyperthyroidism is worsening her cardiac status we discussed the following plan - 1. PTU 200mg TID x 4-5 days 2. Then, at hospital d/c, change to methimazole 15mg BID She will need to see him in f/u after discharge for ongoing care Appreciate his assistance (2) Multiple thyroid nodules: Plan: records obtained from [facility] ENT she has multiple nodules, several >1cm biopsy of dominant nodule advised by ENT but she has not had such yet to date will ultimately defer this to Dr Obregon once he sees her in clinic see #1 above (3) Acute respiratory failure with hypoxia and hypercapnia: Plan: cont to improve peak O2 requirement -- HFNC, about 40 L, 70% FiO2 down to 7 L wall-mounted high-flow today multi-factorial etiologies -- decompensated CHF, ?COPD, severe pulmonary HTN, etc. can't rule out aspiration contributing as well but there is no discrete pneumonia on imaging nor evidence of any infectious process at this time BIPAP with sleep (or AVAPS) NC O2 while awake keep sats 88-92% treat individual issues as below will need 2-step close to discharge (4) Acute heart failure with preserved ejection fraction (HFpEF): Plan: improving volume status EF preserved - 60-65% grade 1 diastolic dysfunction RV is dilated but systolic function is preserved she has diuresed considerably since admission cont IV lasix 20mg daily she has worsening metabolic alkalosis -- pulmonary ordered diamox 250mg BID x 4 doses met alkalosis improved wean O2 as tolerated cont to hold lisinopril to allow more room for her BP and diuresis cont meto succ appreciate recs from [facility] Cardiology as well as [facility] Pulmonary (5) Pulmonary HTN: Plan: severe on echo likely contributing to high o2 requirements pulmonary and cardiology consults apprecaited suspect patient will ultimately need right heart cath to confirm PA pressures, etc at minimum will need repeat echo after discharge to reassess PA pressures - 2-3 months? cont to diurese will need to be assessed for daytime O2 closer to discharge (6) COPD (chronic obstructive pulmonary disease): Plan: possible/suspected I looked at old [employer] and new [employer] and cannot find a copy of any PFTs [id number] there is reference to severe COPD in some records in light of extensive smoking history and her hypercapnia with wheezing she likely does have baseline COPD but will need formal PFTs after discharge cont pulmicort nebs BID cont long-acting B2 agonist BID wheezing resolved; IV steroids stopped can't rule out that her pulm edema was the cause of some of the wheezing pulm consult appreciated (7) Hypomagnesemia: Plan: 1.5 on arrival replaced resolved (8) Diabetes mellitus, type 2: Plan: hold metformin a1c 6.3% in 2022 a1c this admission 6.4% cont basal-bolus insulin, BSG checks, etc control excellent (9) Severe obstructive sleep apnea: Plan: follows with Dr Maria from sleep medicine typically on BIPAP with settings of 21/17 Blend O2 to keep sats 90-92% she does not have home unit thus, use AVAPS while here AVAPS should replace BIPAP upon return home per Dr Winchester (10) Tobacco abuse: Plan: hx / ppd, quit just prior to admission cont nicotine patch 14mg/day (11) Hypertension: Plan: Hold lisinopril to allow more room in BP while diuresing Cont meto succinate (12) History of B-cell lymphoma: Plan: noted in remission imaging studies without any pathological lymphadenopathy no prior h/o radiation - just chemotherapy (13) Unilateral vocal cord paralysis: Plan: left dx at ENT - [facility] in 11/2023 uncertain etiology she is reporting some dysphagia asked speech therapy to perform swallow eval to ensure she is not aspirating they are planning a FEES study while she is here - possibly tomorrow (14) DVT prophylaxis: Plan: lovenox daily Plan appreciate pulm and cards consults attempted to call her neighbor Juliana Diaz [phone] at her request - no answer; called on 03/06 and again 03/08 - no answer, unable to leave a message attempted to call her brother who has a [place] address on 03/06 and 03/08; no answer, left brief message stating I would try again in the future progressing nicely d/c frank PT consult ordered Admission and Anticipated Discharge Date Admission Date: March 04, 2024 Subjective tele overnight wnl cont to feel better no dyspnea at rest or with exertion NC O2 down to <10 L minimal cough eating well did use AVAPS last night no new complaints she is ok with removal of marie Review of Systems Review of Systems: cv - no chest pain, no orthopnea pulm - no dyspnea GI - no abd pain or N/V Physical Exam Physical Exam: gen - sitting in chair, NAD, looks very good neck - still mild JVD sitting upright 90 degrees mouth - MMM; no cyanosis voice - hoarse, low-pitched heart - RRR, s1 s2, 1/6 systolic murmur LSB lungs - mild crackles both bases; no distress or accessory muscle usage; airation cont to improve abd - soft NT ND BS+ ext - <1+ edema b/l, pulses 2+ b/l psych - a/o x 3 Results & Data Results & Data Vital Signs (Past 12 Hours) Vital Signs Temp Pulse Resp BP Pulse Ox O2 Del Method O2 Flow Rate 03/09/24 15:24 36.9 C 60 18 106/71 98 High Flow Nasal Cannula 7.0 03/09/24 11:38 36.7 C 67 19 94/58 L 97 High Flow Nasal Cannula 7.0 03/09/24 08:00 High Flow Nasal Cannula 8 03/09/24 07:56 36.4 C L 60 18 129/72 97 High Flow Nasal Cannula 8.0 03/09/24 07:11 68 18 97 Nasal Cannula 10 Laboratory Results Laboratory Results - last 24 hr 03/09/24 03/09/24 05:51 07:54 VBG pH 7.32 L VBG pCO2 79 H VBG pO2 51 VBG HCO3 41 VBG O2 Saturation 80.7 VBG Base Excess 11.1 Sodium 135 L Potassium 4.4 Chloride 97 L Carbon Dioxide 35 H Anion Gap 3 BUN 16 Creatinine 0.42 L Est Cr Clr Drug Dosing 129.3 Est GFR ( Amer) 129.1 Est GFR (Non-Af Amer) 111.4 BUN/Creatinine Ratio 38.1 H Glucose 106 H POC Glucose 104 H Calcium 9.5 03/09/24 03/09/24 11:37 16:43 POC Glucose 178 H 162 H PG Care Time/CCT Total # of Minutes Spent Total Time Spent with Patient: Total time spent is greater than 50% in coordination of care (as documented) at patient's floor/unit and/or counseling patient: Coding Level of Care Code 66312 SUB INP/OBS CARE 2/35MIN Diagnoses Hyperthyroidism E05.90 Multiple thyroid nodules E04.2 Acute respiratory failure with hypoxia and hypercapnia J96.01; J96.02 Acute heart failure with preserved ejection fraction (HFpEF) I50.31 Pulmonary HTN I27.20 COPD (chronic obstructive pulmonary disease) J44.9 Hypomagnesemia E83.42 Diabetes mellitus, type 2 E11.9 Severe obstructive sleep apnea G47.33 Tobacco abuse Z72.0 Hypertension I10 History of B-cell lymphoma Z85.72 Unilateral vocal cord paralysis J38.01 DVT prophylaxis Z29.9
[2024-03-10 06:19] LABS: BUN Creatinine Ratio 41.5 (10-20); Calcium 9.5 mg/dl (8.6-10.3); Est GFR (African American) 119.6 ml/min; Est GFR (Non-African American) 103.2 ml/min; Potassium 4.7 mmol/L (3.5-5.1)
--- NOTE | 2024-03-10 07:29 | Pulmonology Progress Note ---
Date of Service March 10, 2024 Assessment & Plan (1) Acute respiratory failure with hypoxia and hypercapnia: (2) Acute exacerbation of CHF (congestive heart failure): (3) Severe obstructive sleep apnea: (4) Tobacco abuse: Plan IMPRESSION: 58-year-old female with a significant past medical history of morbid obesity, substantial smoking history, CHF, and severe sleep apnea who [facility] in the setting of profound hypoxemia. She has evidence of RV volume overload on echocardiogram and may have shunt physiology. She is found to be hypercapnic and has a history of sleep disordered breathing/obesity hypoventilation syndrome from RECOMMENDATIONS: 1. Hypoxia -multifactorial with combinations of hypercarbia, atelectasis, COPD, pulmonary hypertension and potential shunt physiology. Given that she has made significant improvements with diuresis, suspected the major component may be fluid overload. Continue to wean oxygen as tolerated defending an oxygen saturation of 88%. Oxygen requirement continues to improve. She will likely need supplemental oxygen at discharge. Recommend reaching out to case management and the [employer] to see whether or not a high capacity home concentrator might be an option for her. Continue to ambulate is much as possible as well as incentive spirometry. 2. Pulmonary hypertension - Appreciated during recent echocardiogram. Continue diuresis until BUN and creatinine bump. Her bicarb is significantly elevated on her BMP however I suspect this is compensation for her chronically elevated CO2 levels. Completed a few days of Diamox with decrease in her serum bicarb. With regards to her elevated PA pressures, suspect this is WHO class II and III. No indication for right heart catheterization currently until the patient's volume status is optimized and her underlying contributing medical factors (COPD, hypoxemia, and sleep disordered breathing) are effectively treated. Recommend repeat echocardiogram in 3 to 4 months. 3. Severe obstructive sleep apnea -continue AVAPS. At discharge the patient should have a prescription for AVAPS given her significant hypoxemic and hypercarbic respiratory failure. 4. Tobacco abuse - Patient is a daily smoker. Encouraged complete smoking cessation given her multiple comorbidities and ongoing symptoms. Will need outpatient PFTs. Can transition off nebulized therapies to conventional inhalers and see how she does. 5. Hypercarbic respiratory failure: Continue nocturnal AVAPS. Patient is making progress. Will continue to follow with you Admission and Anticipated Discharge Date Admission Date: March 04, 2024 Subjective Patient seen and examined. EMR reviewed. The patient continues to show clinical progress. Field's been discontinued. She is up moving around. Her oxygen has been weaned down to 7 L/min. She is not coughing or wheezing. Her lower extremity edema continues to improve. She denies fevers chills or night sweats. No syncope or presyncope. Review of Systems 2 Review of Systems: All systems reviewed & are unremarkable except as noted in Subjective Physical Exam 2 Constitutional: WD/WN, vitals as above Neck: trachea midline, no thyromegaly Respiratory: no respiratory distress, no labored breathing, no cough and not tachypneic Auscultation: + diminished lung sounds; no crackles and no wheezes Cardiovascular: Rate/Rhythm: regular rate Heart Sounds: normal S1 and normal S2; no murmur Extremities: + edema Gastrointestinal (Abdomen): normal bowel sounds, soft, nontender, no hepatosplenomegaly Musculoskeletal: Extremities: extremities normal to inspection Skin: no rashes, warm and dry Lymphatic: no cervical lymphadenopathy Results & Data Results & Data Vital Signs (Past 12 Hours) Vital Signs Temp Pulse Pulse Resp BP Pulse Ox O2 Del Method 03/10/24 07:23 36.3 C L 53 L 22 95/60 L 96 Nasal Cannula 03/10/24 02:59 36.6 C 59 L 18 102/68 97 BiPAP 03/10/24 01:32 62 20 96 03/09/24 23:16 36.5 C 56 L 18 98/60 L 97 BiPAP 03/09/24 22:46 High Flow Nasal Cannula 03/09/24 22:00 59 L 03/09/24 21:00 60 22 96 03/09/24 20:52 65 19 95 Nasal Cannula O2 Flow Rate FiO2 03/10/24 07:23 7 03/10/24 02:59 03/10/24 01:32 40 03/09/24 23:16 03/09/24 22:46 7 03/09/24 22:00 03/09/24 21:00 40 03/09/24 20:52 7 Laboratory Results 03/05/24 05:50 03/10/24 05:32 PG Care Time/CCT Total # of Minutes Spent Total Time Spent with Patient: Total time spent is greater than 50% in coordination of care (as documented) at patient's floor/unit and/or counseling patient: Coding Level of Care Code 22761 SUB INP/OBS CARE 2/35MIN Diagnoses Acute respiratory failure with hypoxia and hypercapnia J96.01; J96.02 Acute exacerbation of CHF (congestive heart failure) I50.9 Severe obstructive sleep apnea G47.33 Tobacco abuse Z72.0
[2024-03-10] MEDS: UMECLIDINIUM/VILANTEROL 62.5/25MCG 7 PUFFS/INHALER INH SCH (08:49)
--- NOTE | 2024-03-10 15:31 | Heart Failure Progress Note ---
Date of Service March 10, 2024 Assessment & Plan (1) Acute heart failure with preserved ejection fraction (HFpEF): Plan: (2) Acute respiratory failure with hypoxia and hypercapnia: Plan: (3) Hypertension: (4) Pulmonary HTN: Plan: Plan ASSESSMENT/PLAN: 1. Acute heart failure with preserved EF: Volume status is improving. Suspect she is nearing euvolemic and breathing has improved with diuresis. Net fluid balance thus far is -14 L. Remains net negative on Lasix 20 mg IV. Renal function is stable. Caution for contraction alkalosis. Monitor closely. Strict I's and O's. Daily weights. Low-sodium diet, less than 2000 mg daily. Would be a good candidate for SGLT2i to further optimize her HFpEF regimen. May also help with mild volume unloading. 2. Pulmonary hypertension: Has known severe obstructive sleep apnea, long time smoker, and appears hypervolemic. Continue to diurese with close monitoring. Pulmonary is following for her pulmonary issues. Once euvolemic, would recommend reevaluating pulmonary pressures by repeating echo or pursuing right heart catheterization. If done via echo and pulmonary pressures still elevated, would consider right heart catheterization. 3. Sleep apnea: Uses BiPAP nightly, with supplemental oxygen. 4. Hypertension: Blood pressure has been normotensive and at times mildly hypotensive. Lisinopril on hold with last dose on 03/05/2024 as per primary hospitalist service. Could also further decrease Metoprolol if needed. This may allow for more blood pressure to allow for continued diuresis. 5. Tobacco abuse: Strongly recommended smoking cessation. Extensive smoking history. 6. Acute respiratory failure with hypoxia and hypercapnia: Addressed by pulmonology. Breathing has improved. Continue to diurese. 7. Hypothyroidism: Could be contributing to her clinical presentation. Defer treatment to primary hospitalist service. Patient to follow up with endocrinology at discharge. 8. Disposition: Cardiology will continue to follow. Recommend outpatient follow up with the heart failure program within 7 days. Admission and Anticipated Discharge Date Admission Date: March 04, 2024 Subjective Patient reports feeling improved today. Her breathing is improving and her O2 requirements are decreasing. She is still on 5L NC today. Typically only requires O2 at night at home. Her edema is improved. She continues to maintain negative fluid balance. She is net negative 14L. Weight is 187 (standing) today. Renal function remains stable but she is hypotensive. Physical Exam Physical Exam: Gen.: No acute distress. Alert and oriented. HEENT: Anicteric sclera. Weak voice (patient report vocal cord issue). Neck: Mild JVD sitting upright. Cardiac: No ventricular heave. Regular. Normal S1-S2. 1/6 systolic murmur. Pulmonary: Decreased breath sounds but otherwise clear to auscultation bilaterally. Abdomen: Soft, nontender, nondistended, with normoactive bowel sounds. No bruits noted. Extremities: 2+ radial pulses bilaterally. 2+ posterior tibialis pulses bilaterally. Trace bilateral lower extremity edema to the knees. No cyanosis. Psychiatric: Affect appears appropriate. Results & Data Vital Signs (Past 12 Hours) Vital Signs Temp Pulse Pulse Resp BP Pulse Ox O2 Del Method 03/10/24 14:57 97.7 F 58 L 17 95/58 L 100 Nasal Cannula 03/10/24 11:50 58 L 03/10/24 10:36 98.2 F 87 20 130/64 93 Nasal Cannula 03/10/24 10:32 97.3 F L 66 17 111/68 97 Nasal Cannula 03/10/24 08:33 Nasal Cannula 03/10/24 07:23 97.3 F L 53 L 22 95/60 L 96 Nasal Cannula O2 Flow Rate 03/10/24 14:57 5 03/10/24 11:50 03/10/24 10:36 5 03/10/24 10:32 7 03/10/24 08:33 5 03/10/24 07:23 7 PG Care Time/CCT Total # of Minutes Spent Total Time Spent with Patient: Total time spent is greater than 50% in coordination of care (as documented) at patient's floor/unit and/or counseling patient: Heart Failure Data/Metrics Heart Failure Type: HFpEF (EF > 50%) Ejection Fraction: 60-65% Evidenced Based Beta Yashira Therapy Beta Yashira Therapy: Yes Beta Yashira Name: Metoprolol Succinate ELIZABETH/ARB/ARNI Therapy ELIZABETH/ARB/ARNI Therapy: Yes ELIZABETH/ARB/ARNI Name: Lisinopril Aldosterone Antagonist Therapy Aldosterone Antagonist Therapy: Yes Aldosterone Antagonist Name: Spironolactone Coding Level of Care Code 72775 SUB INP/OBS CARE 3/50MIN Diagnoses Acute heart failure with preserved ejection fraction (HFpEF) I50.31 Acute respiratory failure with hypoxia and hypercapnia J96.01; J96.02 Hypertension I10 Pulmonary HTN I27.20
--- NOTE | 2024-03-11 06:55 | Hospitalist Progress Note ---
Date of Service March 10, 2024 Assessment & Plan (1) Hyperthyroidism: Plan: new diagnosis has multinodular goiter - had thyroid u/s at [facility] several months ago showing such I spoke with Dr Arun Obregon from [facility] Endocrinology on 03/07 informally who r eviewed her u/s results, TFTs, and clinical case In light of the distinct possibility that the hyperthyroidism is worsening her cardiac status we discussed the following plan - 1. PTU 200mg TID x 4-5 days (day #4 today of such) 2. Then, at about the 5th day or hospital d/c, change to methimazole 15mg BID She will need to see him in f/u after discharge for ongoing care Appreciate his assistance (2) Multiple thyroid nodules: Plan: records obtained from [facility] ENT she has multiple nodules, several >1cm biopsy of dominant nodule advised by ENT but she has not had such yet to date will ultimately defer this to Dr Obregon once he sees her in clinic see #1 above (3) Acute respiratory failure with hypoxia and hypercapnia: Plan: cont to improve peak O2 requirement -- HFNC, about 40 L, 70% FiO2 down to 5 L multi-factorial etiologies -- decompensated CHF, ?COPD, severe pulmonary HTN, etc. FEES study completed by speech today - see below; no aspiration, but has GERD AVAPS with sleep NC O2 while awake keep sats 88-92% treat individual issues as below will need 2-step close to discharge (4) Acute heart failure with preserved ejection fraction (HFpEF): Plan: improving volume status diuresis is slowing down, Na level has decreased, and BPs are becoming more soft as time goes on suspect we are approaching euvolemia EF preserved - 60-65% grade 1 diastolic dysfunction RV is dilated but systolic function is preserved cont IV lasix 20mg today, but put tomorrow's dose on hold until am labs are back cont to hold lisinopril to allow more room for her BP and diuresis cont meto succ this am we had to hold her aldactone as SBP was in the low 90s appreciate recs from [facility] Cardiology as well as [facility] Pulmonary (5) Pulmonary HTN: Plan: severe on echo likely contributing to high o2 requirements pulmonary and cardiology consults appreciated suspect patient will ultimately need right heart cath to confirm PA pressures, etc at minimum will need repeat echo after discharge to reassess PA pressures - 2-3 months? cont to diurese will need to be assessed for daytime O2 closer to discharge (6) COPD (chronic obstructive pulmonary disease): Plan: possible/suspected I looked at old [facility] and new [facility] and cannot find a copy of any PFTs [id number] there is reference to severe COPD in some records in light of extensive smoking history and her hypercapnia with wheezing she likely does have baseline COPD but will need formal PFTs after discharge pulmicort nebs BID and long-acting B2 agonist BID d/c in sha of vilanterol/umeclidinium wheezing resolved; IV steroids stopped pulm consult appreciated (7) Hypomagnesemia: Plan: 1.5 on arrival replaced resolved (8) Diabetes mellitus, type 2: Plan: hold metformin a1c 6.3% in 2022 a1c this admission 6.4% cont basal-bolus insulin, BSG checks, etc control excellent (9) Severe obstructive sleep apnea: Plan: follows with Dr Maria from sleep medicine typically on BIPAP with settings of 21/17 Blend O2 to keep sats 90-92% Dr Winchester recommending that at discharge she get an AVAPS unit to use in place of her BIPAP (10) Tobacco abuse: Plan: hx 1/2 ppd, quit just prior to admission cont nicotine patch 14mg/day (11) Hypertension: Plan: Hold lisinopril to allow more room in BP while diuresing Had to hold aldactone this am as well due to systolic BPs in the low 90s Cont meto succinate (12) History of B-cell lymphoma: Plan: noted in remission imaging studies without any pathological lymphadenopathy no prior h/o radiation - just chemotherapy (13) Unilateral vocal cord paralysis: Plan: left dx at ENT - [facility] in 11/2023 uncertain etiology she reported some dysphagia speech therapy performed FEES study today -- see below (14) DVT prophylaxis: Plan: lovenox daily (15) Hyponatremia: Plan: 2nd to diuresis may be close to euvolemia at this point hold lasix after today's dose, repeat BMP in am (16) GERD (gastroesophageal reflux disease): Plan: see FEES study report by speech therapy no aspiration seen, but patient likely with significant GERD will start PPI daily Plan appreciate pulm and cards consults attempted to call her neighbor Juliana - [phone] at her request - no answer; called on 03/06 and again 03/08 - no answer, unable to leave a message attempted to call her brother who has a [place] address on 03/06 and 03/08; no answer, left brief message stating I would try again in the future patient finally connected with her brother today by phone and she filled him in on her medical condition progressing nicely home next 48 hours?? Admission and Anticipated Discharge Date Admission Date: March 04, 2024 Subjective tele overnight wnl pt sitting in chair - NO complaints feels good no dyspnea cough resolved eating well anxious to go home she did finally connect with her brother and gave him update; she confirmed he did receive my 2 voicemail messages during the visit O2 requirement was down to 5 L via NC Review of Systems Review of Systems: cv - no cp, no orthopnea, edema nearly resolved pulm - no dyspnea at rest; no MARS GI - no abd pain or N/V - voiding fine following marie removal Physical Exam Physical Exam: gen - sitting in chair, NAD, looks great neck - no JVD sitting upright 90 degrees today mouth - MMM; no cyanosis voice - hoarse, low-pitched heart - RRR, s1 s2, 1/6 systolic murmur LSB lungs - minimal crackles both bases; no distress or accessory muscle usage; airation very good; no wheezing abd - soft NT ND BS+ ext - trace edema b/l, pulses 2+ b/l psych - a/o x 3 Results & Data Results & Data Vital Signs (Past 12 Hours) Vital Signs Temp Pulse Pulse Resp BP Pulse Ox O2 Del Method 03/10/24 14:57 36.5 C 58 L 17 95/58 L 100 Nasal Cannula 03/10/24 11:50 58 L 03/10/24 10:36 36.8 C 87 20 130/64 93 Nasal Cannula 03/10/24 10:32 36.3 C L 66 17 111/68 97 Nasal Cannula 03/10/24 08:33 Nasal Cannula 03/10/24 07:23 36.3 C L 53 L 22 95/60 L 96 Nasal Cannula Laboratory Results Laboratory Results 03/10/24 03/10/24 05:32 07:57 Sodium 133 L Potassium 4.7 Chloride 98 Carbon Dioxide 31 Anion Gap 4 BUN 22 Creatinine 0.53 L Est Cr Clr Drug Dosing 102.0 Est GFR ( Amer) 119.6 Est GFR (Non-Af Amer) 103.2 BUN/Creatinine Ratio 41.5 H Glucose 104 H POC Glucose 100 H Calcium 9.5 PG Care Time/CCT Total # of Minutes Spent Total Time Spent with Patient: Total time spent is greater than 50% in coordination of care (as documented) at patient's floor/unit and/or counseling patient: Coding Level of Care Code 26381 SUB INP/OBS CARE 2/35MIN Diagnoses Hyperthyroidism E05.90 Multiple thyroid nodules E04.2 Acute respiratory failure with hypoxia and hypercapnia J96.01; J96.02 Acute heart failure with preserved ejection fraction (HFpEF) I50.31 Pulmonary HTN I27.20 COPD (chronic obstructive pulmonary disease) J44.9 Hypomagnesemia E83.42 Diabetes mellitus, type 2 E11.9 Severe obstructive sleep apnea G47.33 Tobacco abuse Z72.0 Hypertension I10 History of B-cell lymphoma Z85.72 Unilateral vocal cord paralysis J38.01 DVT prophylaxis Z29.9 Hyponatremia E87.1 GERD (gastroesophageal reflux disease) K21.9
--- NOTE | 2024-03-11 07:52 | Pulmonology Progress Note ---
Date of Service March 11, 2024 Assessment & Plan (1) Acute respiratory failure with hypoxia and hypercapnia: (2) Acute exacerbation of CHF (congestive heart failure): (3) Severe obstructive sleep apnea: (4) Tobacco abuse: Plan IMPRESSION: 58-year-old female with a significant past medical history of morbid obesity, substantial smoking history, CHF, and severe sleep apnea who presents to the Medical Center in the setting of profound hypoxemia. She has evidence of RV volume overload on echocardiogram and may have shunt physiology. She is found to be hypercapnic and has a history of sleep disordered breathing/obesity hypoventilation syndrome. She is significantly improved with diuresis. RECOMMENDATIONS: 1. Hypoxia -multifactorial with combinations of hypercarbia, atelectasis, COPD, pulmonary hypertension and potential shunt physiology. She is down to about 3 to 4 L at rest. Recommend two-step evaluation. The patient can likely be dismissed from the hospital if home oxygen can be set up. She can follow-up in the outpatient setting with Dr. Maria 2. Pulmonary hypertension - Appreciated during recent echocardiogram. Continue diuresis. With regards to her elevated PA pressures, suspect this is WHO class II and III. No indication for right heart catheterization currently until the patient's volume status is optimized and her underlying contributing medical factors (COPD, hypoxemia, and sleep disordered breathing) are effectively treated. Recommend repeat echocardiogram in 3 to 4 months. 3. Severe obstructive sleep apnea -continue AVAPS. At discharge the patient should have a prescription for AVAPS given her significant hypoxemic and hypercarbic respiratory failure. Due to chronic respiratory failure consequent to COPD, patient now requires a noninvasive home ventilator. Bilevel therapy with and without a rate would be ineffective as patient requires a volume targeted mode. Ventilation is required to decrease work of breathing and improve pulmonary status. Interruption of ventilator support would lead to decline of health status. 4. Tobacco abuse - Patient is a daily smoker. Encouraged complete smoking cessation given her multiple comorbidities and ongoing symptoms. Will need outpatient PFTs. Can transition off nebulized therapies to conventional inhalers and see how she does. 5. Hypercarbic respiratory failure: Continue nocturnal AVAPS. Patient appears to have achieved maximal benefit from inpatient hospitalization and can likely be dismissed from the hospital from a pulmonary standpoint. Outpatient follow-up with Dr. Maria. Pulmonary will sign off. Feel free to contact us with questions or concerns Admission and Anticipated Discharge Date Admission Date: March 04, 2024 Subjective Patient seen and examined. EMR reviewed.. The patient reports that she is doing better. She used AVAPS last night. She is out of bed to chair. Her oxygen requirement significantly improved. She is not coughing or wheezing. She feels her breathing is better. Review of Systems 2 Review of Systems: All systems reviewed & are unremarkable except as noted in Subjective Physical Exam 2 Constitutional: WD/WN, vitals as above Neck: trachea midline, no thyromegaly Respiratory: no respiratory distress, no labored breathing, no cough and not tachypneic Auscultation: + diminished lung sounds; no crackles and no wheezes Cardiovascular: Rate/Rhythm: regular rate Heart Sounds: normal S1 and normal S2; no murmur Extremities: + edema Gastrointestinal (Abdomen): normal bowel sounds, soft, nontender, no hepatosplenomegaly Musculoskeletal: Extremities: extremities normal to inspection Skin: no rashes, warm and dry Lymphatic: no cervical lymphadenopathy Results & Data Results & Data Vital Signs (Past 12 Hours) Vital Signs Temp Pulse Pulse Resp BP Pulse Ox O2 Del Method 03/11/24 07:42 36.5 C 58 L 22 117/64 99 BiPAP 03/11/24 02:51 36.8 C 51 L 18 105/68 99 BiPAP 03/11/24 02:36 61 15 95 03/10/24 22:45 36.6 C 77 18 101/66 98 BiPAP 03/10/24 21:58 57 L 03/10/24 21:58 BiPAP 03/10/24 21:00 60 20 95 O2 Flow Rate FiO2 03/11/24 07:42 03/11/24 02:51 03/11/24 02:36 40 03/10/24 22:45 03/10/24 21:58 03/10/24 21:58 5 03/10/24 21:00 40 Laboratory Results 03/05/24 05:50 03/10/24 05:32 PG Care Time/CCT Total # of Minutes Spent Total Time Spent with Patient: Total time spent is greater than 50% in coordination of care (as documented) at patient's floor/unit and/or counseling patient: Coding Level of Care Code 41756 SUB INP/OBS CARE 2/35MIN Diagnoses Acute respiratory failure with hypoxia and hypercapnia J96.01; J96.02 Acute exacerbation of CHF (congestive heart failure) I50.9 Severe obstructive sleep apnea G47.33 Tobacco abuse Z72.0
[2024-03-11 08:37] LABS: BUN Creatinine Ratio 42.9 (10-20); Calcium 9.8 mg/dl (8.6-10.3); Creatinine Clr Calc Pharmacy 128.5 ml/min; Est GFR (African American) 129.1 ml/min; Est GFR (Non-African American) 111.4 ml/min; Magnesium 2.1 mg/dl (1.7-2.4); Potassium 4.9 mmol/L (3.5-5.1)
--- NOTE | 2024-03-11 12:29 | XCELERA ---
[id number] \\[email or web address]\[id number]
[2024-03-11] MEDS: PANTOprazole 40 MG TAB PO STA (13:40)
--- NOTE | 2024-03-11 16:39 | Hospitalist Progress Note ---
Date of Service March 11, 2024 Assessment & Plan (1) Hyperthyroidism: Plan: new diagnosis has multinodular goiter - had thyroid u/s at [facility] several months ago showing such I spoke with Dr Arun Obregon from [facility] on 03/07 informally who reviewed her u/s results, TFTs, and clinical case In light of the distinct possibility that the hyperthyroidism is worsening her cardiac status we discussed the following plan - 1. PTU 200mg TID x 4-5 days (day #5 today of such) 2. tomorrow change to methimazole 15mg BID She will need to see him in f/u after discharge for ongoing care Appreciate his assistance (2) Multiple thyroid nodules: Plan: records obtained from [facility] she has multiple nodules, several >1cm biopsy of dominant nodule advised by ENT but she has not had such yet to date will ultimately defer this to Dr Obregon once he sees her in clinic see #1 above (3) Acute respiratory failure with hypoxia and hypercapnia: Plan: acute on chronic respiratory failure peak O2 requirement -- HFNC, about 40 L, 70% FiO2 down to 2 L multi-factorial etiologies -- decompensated CHF, COPD, severe pulmonary HTN, etc. FEES study completed by speech - no aspiration (4) Acute heart failure with preserved ejection fraction (HFpEF): Plan: Diuresed with IV lasix this admission EF preserved - 60-65% grade 1 diastolic dysfunction RV is dilated but systolic function is preserved limited TTE 03/11 - normal volume status change to lasix 20 mg po daily tomorrow cont to hold lisinopril to allow more room for her BP and diuresis cont meto succ (5) Pulmonary HTN: Plan: severe on echo likely contributing to high o2 requirements pulmonary and cardiology consults appreciated -limited TTE 03/11 - normal volume status, RVSP remains elevated at 50-60 -discuss with cardiology (6) COPD (chronic obstructive pulmonary disease): Plan: Acute exacerbation of COPD -treated with IV steroids earlier in admission, bronchodilators, wheezing resolved pulmicort nebs BID and long-acting B2 agonist BID d/c in sha of vilanterol/umeclidinium outpatient PFTs (7) Hypomagnesemia: Plan: 1.5 on arrival replaced resolved (8) Diabetes mellitus, type 2: Plan: hold metformin a1c 6.3% in 2022 a1c this admission 6.4% cont basal-bolus insulin, BSG checks, etc control excellent (9) Severe obstructive sleep apnea: Plan: follows with Dr Maria from sleep medicine was on home Bipap previously Blend O2 to keep sats 90-92% Dr Winchester recommending that at discharge she get an AVAPS unit to use in place of her BIPAP (10) Tobacco abuse: Plan: hx 1/2 ppd, quit just prior to admission cont nicotine patch 14mg/day (11) Hypertension: Plan: Hold lisinopril to allow more room in BP while diuresing Had to hold aldactone this am as well due to systolic BPs in the low 90s Cont meto succinate (12) History of B-cell lymphoma: Plan: noted in remission imaging studies without any pathological lymphadenopathy no prior h/o radiation - just chemotherapy (13) Unilateral vocal cord paralysis: Plan: left dx at ENT - [facility] in 11/2023 uncertain etiology she reported some dysphagia speech therapy performed FEES study today -- see below (14) DVT prophylaxis: Plan: lovenox daily (15) Hyponatremia: Plan: 2nd to diuresis stable 133 today. PO lasix starting AM (16) GERD (gastroesophageal reflux disease): Plan: see FEES study report by speech therapy no aspiration seen, but patient likely with significant GERD PPI daily (17) Chronic respiratory failure with hypoxia and hypercapnia: Plan: Chronic respiratory failure with hypoxia and hypercapnia. No longer volume overloaded based on Echo today. 2-step test today - maintained sats in low 90s on room air at rest but required 2L O2 pnc with ambulation. Continue 3-4L nocturnal O2. 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 She has evidence for CO2 retention and requires noninvasive ventilation with volume targeted mode at home for optimal management, Bipap was tried and she still remains hypercarbic due to inability of Bipap to provide noninvasive ventilation of adequate degree. Plan appreciate pulm and cards consults attempted to call her neighbor Juliana - [phone] at her request - no answer; called on 03/06 and again 03/08 - no answer, unable to leave a message attempted to call her brother who has a [place] address on 03/06 and 03/08; no answer, left brief message stating I would try again in the future patient finally connected with her brother today by phone and she filled him in on her medical condition progressing nicely home next 48 hours?? Admission and Anticipated Discharge Date Admission Date: March 04, 2024 Subjective dyspnea much improved. Feels pretty well and denies shortness of breath. Leg swelling improved. No chest pain Physical Exam 2 Physical Exam: PHYSICAL EXAMINATION Last 24h vital signs reviewed, see documentation in flowsheet General: comfortable appearing, no distress. sitting up in the chair HEENT: Normocephalic, atraumatic, pupils round and equal, sclerae anicteric, no conjunctival injection, moist mucus membranes Lungs: Normal respiratory effort. Clear to auscultation bilaterally. No RRW Heart: Regular rate and rhythm, no murmurs. No JVD Abdomen: Soft, nontender, nondistended. Bowel sounds present. Extremities: Warm, dry, well-perfused. mild lower extremity edema. Neuro: Alert and oriented x 4, face symmetric, moves 4 extremities well Psych: Normal affect and behavior Results & Data Results & Data Vital Signs (Past 12 Hours) Vital Signs Temp Pulse Pulse Pulse Pulse Pulse Pulse 03/11/24 16:19 60 03/11/24 15:39 36.7 C 57 L 03/11/24 11:28 36.9 C 73 03/11/24 09:32 89 90 85 72 03/11/24 08:30 56 L 03/11/24 07:42 36.5 C 58 L Resp Resp Resp Resp Resp BP Pulse Ox 03/11/24 16:19 03/11/24 15:39 22 97/65 L 98 03/11/24 11:28 20 101/57 L 96 03/11/24 09:32 19 20 19 18 03/11/24 08:30 03/11/24 07:42 22 117/64 99 Pulse Ox Pulse Ox Pulse Ox Pulse Ox O2 Del Method O2 Flow Rate O2 Flow Rate 03/11/24 16:19 03/11/24 15:39 Nasal Cannula 2 03/11/24 11:28 Nasal Cannula 2 03/11/24 09:32 87 L 90 85 L 89 L 1 03/11/24 08:30 03/11/24 07:42 BiPAP O2 Flow Rate 03/11/24 16:19 03/11/24 15:39 03/11/24 11:28 03/11/24 09:32 2 03/11/24 08:30 03/11/24 07:42 Laboratory Results 03/05/24 05:50 03/11/24 07:56 PG Care Time/CCT Total # of Minutes Spent Total Time Spent with Patient: I personally spent: 50 minutes today on clinical care activities including: reviewing chart notes and vital signs reviewing labs reviewing studies discussion with daycare teacher arranging and ordering home oxygen and AVAPS examining and counseling the patient writing orders documentation Coding Level of Care Code 57171 SUB INP/OBS CARE 3/50MIN Diagnoses Hyperthyroidism E05.90 Multiple thyroid nodules E04.2 Acute respiratory failure with hypoxia and hypercapnia J96.01; J96.02 Acute heart failure with preserved ejection fraction (HFpEF) I50.31 Pulmonary HTN I27.20 COPD (chronic obstructive pulmonary disease) J44.9 Hypomagnesemia E83.42 Diabetes mellitus, type 2 E11.9 Severe obstructive sleep apnea G47.33 Tobacco abuse Z72.0 Hypertension I10 History of B-cell lymphoma Z85.72 Unilateral vocal cord paralysis J38.01 DVT prophylaxis Z29.9 Hyponatremia E87.1 GERD (gastroesophageal reflux disease) K21.9 Chronic respiratory failure with hypoxia and hypercapnia J96.11; J96.12
[2024-03-12] MEDS: PANTOprazole 40 MG TAB PO SCH (08:38)
[2024-03-12] MEDS: FUROSEMIDE 20 MG TAB PO SCH (08:39)
[2024-03-12] MEDS: methIMAzole 5 MG TABLET PO SCH (08:40)
[2024-03-12 09:49] LABS: HCO3 ABG 31 mmol/L (19-24); Oxygen Saturation ABG 97.7 % (90-95); PCO2 ABG 50 mmHg (35-46); PO2 ABG 90 mmHg (80-95)
[2024-03-12 09:53] LABS: Allen Test Pos (Pos)
--- NOTE | 2024-03-12 19:35 | Discharge Summary ---
Date of Service March 12, 2024 Admission HPI Per Admitting Provider Vanessa is a 58F with a past medical history of prediabetes, HTN, back pain and B-cell lymphoma. Presents after being hypoxic at her PCP appointment. Difficulty to obtain history given conversation dyspnea but patient reports that she had been feeling well overall until she got to her PCP office. Does report dry non productive cough over the last 2-3 weeks. No sick contacts, no recent travel. SOB now, but unsure when this started. Uses CPAP at home and reports has been compliant with this. Ran out of lasix, unsure how long ago. Did take her Gabapentin, lexapro and metformin this morning. Unsure why she takes the lasix, states she has never been told to weigh herself everyday. quit smoking 3 days ago - prior smoking half a pack a day Lives alone. Uses a walker sometimes. reports sedentary lifestyle. ED Course 1g IV Mag 80mg IV lasix Duoneb Principal Diagnosis Acute on chronic respiratory failure with hypoxia and hypercapnia, acute heart failure with preserved ejection fraction, pulmonary hypertension, hyperthyroidism with multinodular goiter Discharge Exam PHYSICAL EXAMINATION Last 24h vital signs reviewed, see documentation in flowsheet General: comfortable appearing, no distress. sitting up in the chair exam unchanged 03/12 HEENT: Normocephalic, atraumatic, pupils round and equal, sclerae anicteric, no conjunctival injection, moist mucus membranes Lungs: Normal respiratory effort. Clear to auscultation bilaterally. No RRW Heart: Regular rate and rhythm, no murmurs. No JVD Abdomen: Soft, nontender, nondistended. Bowel sounds present. Extremities: Warm, dry, well-perfused. no lower extremity edema. Neuro: Alert and oriented x 4, face symmetric, moves 4 extremities well Psych: Normal affect and behavior Discharge Data Allergies Allergy/AdvReac Type Severity Reaction Status Date / Time adhesive Allergy Unknown TEGADERM-SEVERE Verified 01/03/24 12:26 SKIN IRRITATION/RASH No Known Drug Allergies Allergy Unknown . Verified 01/03/24 12:26 Consultations 03/04/24 17:55 ED Decision to Admit Stat 03/06/24 11:56 Consult Pulmonology Routine 03/06/24 11:57 Consult Cardiology Routine Ordered Studies 03/04/24 16:18 CT for pulmonary embolism PE [CT angio chest PE protocol] Stat Chest X-Ray 03/04/24 15:01 XR chest 1V portable HISTORY: Dyspnea COMPARISON: Chest 07/10/2023. FINDINGS: No pneumothorax. The cardiac silhouette remains mildly enlarged. Blunting of the right lateral costophrenic sulcus suggestive of a trace right pleural effusion. Perihilar interstitial/vascular thickening has progressed and favors mild congestive change. There are patchy right basilar densities which are new from the prior study. No acute fractures. IMPRESSION: 1. Cardiomegaly with mild congestive change and a trace right pleural effusion. This has progressed in the interval. 2. Patchy right basilar densities are nonspecific and could represent a developing pneumonia. ACT 112: Negative or not required by law. Electronically signed by: Trev Roy M.D. 03/04/2024 3:54 PM Chest CTA 03/04/24 16:18 CT angio chest PE protocol CLINICAL HISTORY: PE TECHNIQUE: Multidetector row helical CT of the chest was performed with angiographic protocol. Coronal and sagittal reformations were obtained. Coronal and sagittal MIPS were obtained from the axial data set and were submitted for review. Automated dose lowering techniques and/or adjustment according to patient size were utilized for this exam. CT DOSE: 877.68 mGy.cm Comparison: Comparison is made to CT chest on 08/06/2023 FINDINGS: Lungs and pleura: Bronchial wall thickening is seen. There are small bilateral pleural effusions with underlying atelectasis. Numerous pulmonary nodules are unchanged from prior exam including multiple 3 mm nodules in the right lower lobe (series 4 images 92 and 103). Suggestion of smooth interlobular septal thickening. Heart and pericardium: Mitral annular calcifications are seen. Vessels: The pulmonary trunk is enlarged measuring 34 mm. Moderate atherosclerotic disease is seen. Mediastinum and adwoa: Subcentimeter lymph nodes are seen. Chest wall and lower neck: Small thyroid nodules are noted which do not require follow-up by ACR criteria. Abdomen: Unremarkable. Bones: Degenerative changes in the thoracic spine. Posterior fixation hardware is noted. IMPRESSION: 1. No evidence of pulmonary embolus. 2. Pulmonary hypertension, pleural effusions, and interlobular septal thickening which may represent pulmonary edema. 3. Bronchial wall thickening is seen. ACT 112: Negative or not required by law. Electronically signed by: Keenan Jenkins M.D. 03/04/2024 5:24 PM 03/05/24 05:50 03/11/24 07:56 Hospital Course (1) Acute respiratory failure with hypoxia and hypercapnia: acute on chronic respiratory failure multi-factorial etiologies -- decompensated CHF, COPD, severe pulmonary HTN, etc. FEES study completed by speech - no aspiration peak O2 requirement -- HFNC, about 40 L, 70% FiO2 resolved with diuresis and noninvasive ventilation down to room air at rest and 2 L with activity / nocturnal (2) Acute heart failure with preserved ejection fraction (HFpEF): Diuresed with IV lasix this admission EF preserved - 60-65% grade 1 diastolic dysfunction RV is dilated but systolic function is preserved limited TTE 03/11 - normal volume status, RVSP remains elevated discharged on lasix 20 mg and spironolactone 25 mg, counseled on low salt diet and monitoring weight continue metoprolol and lisinopril discussed with Dayna Wilks with heart failure clinic who consulted (3) Hyperthyroidism: new diagnosis has multinodular goiter - had thyroid u/s at [facility] several months ago showing such discussed by phone with Dr Arun Obregon from [facility] Endocr[facility]ology on 03/07 informally who reviewed her u/s results, TFTs, and clinical case In light of the distinct possibility that the hyperthyroidism is worsening her cardiac status we discussed the following plan - 1. PTU 200mg TID x 5 days completed in hospital 2. following that methimazole 15mg BID She will need to see him in f/u after discharge for ongoing care - made endocrine clinic referral (4) Multiple thyroid nodules: records obtained from [facility] ENT she has multiple nodules, several >1cm biopsy of dominant nodule advised by ENT but she has not had such yet to date will ultimately defer this to Dr Obregon once he sees her in clinic see #1 above (5) Pulmonary HTN: severe on echo likely contributing to high o2 requirements pulmonary and cardiology consults appreciated -limited TTE 03/11 - normal volume status, RVSP remains elevated at 50-60 -consider right heart cath but likely caused by chronic hypoxia / respiratory failure (6) COPD (chronic obstructive pulmonary disease): Acute exacerbation of COPD -treated with IV steroids earlier in admission, bronchodilators, wheezing resolved I think the wheezing was mainly pulmonary edema outpatient PFTs recommended she is working on smoking cessation - counseled 03/12 (7) Chronic respiratory failure with hypoxia and hypercapnia: Chronic respiratory failure with hypoxia and hypercapnia. 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 She has evidence for CO2 retention and requires noninvasive ventilation with volume targeted mode at home for optimal management, Bipap was tried and she still remains hypercarbic due to inability of Bipap to provide noninvasive ventilation of adequate degree. -AVAPS was arranged for home (8) Hypomagnesemia: replaced resolved (9) Diabetes mellitus, type 2: resume metformin a1c 6.3% in 2022 a1c this admission 6.4% (10) Severe obstructive sleep apnea: follows with Dr Maria from sleep medicine was on home Bipap previously, however Bipap during this admission failed to improve her respiratory failure Dr Winchester recommending that at discharge she get an AVAPS unit to use in place of her BIPAP - this was arranged See below (11) Tobacco abuse: hx / ppd, quit just prior to admission cont nicotine patch 14mg/day counseled cessation (12) Hypertension: resume meds as above (13) History of B-cell lymphoma: noted in remission imaging studies without any pathological lymphadenopathy no prior h/o radiation - just chemotherapy (14) Unilateral vocal cord paralysis: left dx at ENT - [facility] in 11/2023 uncertain etiology she reported some dysphagia speech therapy performed FEES study was normal (15) Hyponatremia: mild 2nd to diuresis stable 133 (16) GERD (gastroesophageal reflux disease): see FEES study report by speech therapy no aspiration seen, but patient likely with significant GERD trial PPI daily, if dysphagia symptoms persist despite PPI then gastroenterology referral would be appropriate Plan appreciate pulm and cards consults attempted to call her neighbor Juliana - [phone] at her request - no answer; called on 03/06 and again 03/08 - no answer, unable to leave a message attempted to call her brother who has a [place] address on 03/06 and 03/08; no answer, left brief message stating I would try again in the future patient finally connected with her brother today by phone and she filled him in on her medical condition progressing nicely home next 48 hours?? Total Time Total Time Spent Total Time Spent (In Minutes): I personally spent: 50 minutes today on clinical care activities including: reviewing chart notes and vital signs reviewing labs discussion with family day care worker examining and counseling the patient writing orders, discharge instructions, Rx's documentation Discharge Plan Discharge Items Patient Disposition: Home - Self-Care Reason For Visit: HYPOXIA, PULMONARY EDEMA Discharge Diagnosis: Acute on chronic diastolic and right sided heart failure, acute on chronic hypoxic and hypercapnic respiratory failure, hyperthyroidism Activity: Resume your previous activity Non-emergency contact: Primary Care Provider and Mixing Tumbler Operator Call non-emergency contact if: you have any medication questions and your symptoms worsen Follow-up/Referrals: Glenroy Maria MD [Physician] - 03/19/24 9:30 am (Spoke with Meghan, [facility] d/c appt scheduled 03/19 at 9:30.) Caitlyn Wilks PA-C [Physician Typing Section Chief] - 03/18/24 10:30 am (Congestive Heart Failure Program Appointment Information Early follow up is essential to managing your heart failure. An appointment has been scheduled for you with the [facility] Heart [facility] within 7 days of discharge. Anticipate this visit to be 30-60 minutes long. Please expect a electrical line splicer phone call from one of our nurses approximately 48 hours from discharge. They will also be placing an order for lab work to be completed 1-2 days prior to your heart failure follow up appointment. Please be sure to have this done so we can go over the results when you come in. Office Location The cardiology office building is located in front of the hospital at [address]. Bring the following with you to your follow-up doctor appointments: Please bring your daily weight log any discharge paperwork all of your medication bottles with you to this visit. ) Dimitri Li DO [Primary Care Provider] - 03/18/24 3:25 am (Spoke with Tamiko at [facility], hosp d/c appt scheduled 03/18 @ 3:[address] Li.) Diet: Carb Consistent or DM2 and Low Sodium (2gm) Addtl Attending Provider Instructions: Weigh yourself every morning on bathroom scale Call heart failure clinic to adjust furosemide (lasix) if you gain 3 pounds or more overnight or 5 pounds or more in a week, see below Follow up in heart failure clinic -furosemide 20 mg and spironolactone 25 mg - diuretics Schedule follow up with Dr. Maria for pulmonary and sleep apnea -we got you approved for an AVAPS machine at home this will help with your respiratory problems. It will replace your home machine (which is a Bipap) -home oxygen 2L with activity and 2-3L while sleeping. at rest you can be on room air. We made a referral to endocrinology clinic to follow up hyperthyroidism and goiter -meanwhile, see your primary care doctor within a few weeks - to follow up your thyroid medications and smoking cessation efforts (good job!) See if your trouble swallowing goes away with treatment for GERD (pantoprazole or equivalent). If this symptom persists despite 4-6 weeks of treatment talk to your doctor about a referral to gastroenterology. Addtl Engineering Lab Technician Provider Instructions: Call 911 and go to the Emergency Room if: * You have tightness or pain in your chest that does not go away with rest or Nitroglycerin * You are very short of breath even with rest Call your doctor if any of the following symptoms or problems start or get worse: * Shortness of breath or difficulty breathing * Wake up at night short of breath * Chest pain * Cough * Swelling of your hands, fee, or legs * More fatigued or tired with your normal activity * Palpitations - sudden fast heart beats WEIGHT * Weigh yourself every morning after using the bathroom. * Use the same scale. * Wear the same amount of clothing. * Write your weight down on your chart. * Call your doctor if you gain more than 2-3 pounds in 1-2 days. MEDICATIONS * Use this discharge instruction sheet for instructions. * Take your medications at the time your doctor ordered. * Do not skip a dose of your medicines. * If you miss a dose of medicine, take as soon as possible, but DO NOT DOUBLE A DOSE. * Read your medicine information when you get home. * Know all of the side effects of your medicine. * Call your doctor's office if you have any side effects. * Be sure all of your doctors know what medicine and herbs you take (including cold, flu, and herbal medicine). * Pain Medicine: If you do not get relief from your pain, please call your doctor for help. Take the following with you to your follow-up doctor appointments: * Weight Chart * Medication List * List of questions Do not drink excessive alcohol, beer or wine. Pending Studies at Discharge: No Stand-Alone Forms: [facility] [place], Smoking Cessation Medications and DC Order Prescriptions: New nicotine 7 mg/24 hr Patch 24 Hour 14 mg transdermal QAM Qty: 0 0RF Rx Instructions: over the counter - continue patch, gum or lozenge as directed Anoro Ellipta 62.5-25 mcg/actuation Blister With Device 1 inh inhalation DAILY Qty: 60 0RF Rx Instructions: may make formulary substitution methimazole 5 mg Tablet 15 mg PO BID Qty: 180 0RF pantoprazole 40 mg Tablet,Delayed Release (Dr/Ec) 40 mg PO QAM Qty: 30 0RF furosemide 20 mg Tablet 20 mg PO QAM Qty: 30 0RF spironolactone 25 mg Tablet 25 mg PO QAM Qty: 30 0RF Continued metformin 500 mg Tablet 1,000 mg PO BID simvastatin 40 mg Tablet 40 mg PO HS lisinopril 10 mg Tablet 10 mg PO QAM metoprolol succinate 25 mg Tablet Extended Release 24 Hr 25 mg PO QAM gabapentin 600 mg Tablet 600 mg PO TID albuterol sulfate [Ventolin HFA] 90 mcg/actuation Hfa Aerosol Inhaler 1 inh INHALATION QID PRN (Reason: sob) Discontinued furosemide [Lasix] 40 mg Tablet 40 mg PO QAM Discharge Orders: Discharge Order (Routine); Ordered 03/12/24 Ordered By: Shanae Diehl/Other Patient Handouts: The Role of the Thyroid Gland, Diabetes and Heart Disease, Long-Term Complications of Diabetes, Managing Type 2 Diabetes, Oral Medicines for Type 2 Diabetes, Tips to Control Acid Reflux, Kicking the Smoking Habit, Smoking and Diabetes, ED Shortness of Breath (Dyspnea), ED Hyperthyroidism, Heart Failure, Diabetes and High Blood Pressure, Smoking and Respiratory Diseases Admission Data Admit Date/Time: 03/04/24 18:44 Attending Provider: Shanae Talley Admit Provider: Colin Chris Primary Care Provider: Dimitri Li Other Providers: Colin Chris; Darren Winchester Alexander W. Other Interventions: Discharge Summary Assessment (RN) Last Done: 03/12/24 11:56 Coding Level of Care Code 42730 INP/OBS DISCH >30 MIN Diagnoses Acute respiratory failure with hypoxia and hypercapnia J96.01; J96.02 Acute heart failure with preserved ejection fraction (HFpEF) I50.31 Hyperthyroidism E05.90 Multiple thyroid nodules E04.2 Pulmonary HTN I27.20 COPD (chronic obstructive pulmonary disease) J44.9 Chronic respiratory failure with hypoxia and hypercapnia J96.11; J96.12 Hypomagnesemia E83.42 Diabetes mellitus, type 2 E11.9 Severe obstructive sleep apnea G47.33 Tobacco abuse Z72.0 Hypertension I10 History of B-cell lymphoma Z85.72 Unilateral vocal cord paralysis J38.01 Hyponatremia E87.1 GERD (gastroesophageal reflux disease) K21.9
[2024-03-13] MEDS ORDERED: NICOTINE 14 MG/24 HR PATCH TD SCH (09:00)
== END 2024-03-12 14:30 | disposition home or self-care (01) | DRG 291 ==
LOC: ED 14:35 → SUATTDRO 18:44 → 4W 18:44

== ENCOUNTER 2024-10-19 08:48 | Inpatient (IN) ==
--- NOTE | 2024-10-19 09:08 | Emergency Department Note ---
Impression & Plan Stroke ADMIT ED Provider Note HPI: History obtained from patient. The patient is a 59-year-old female with history of hypertension, GERD, COPD, type 2 diabetes, presents the emergency department with a chief complaint of numbness and tingling in the left side of her face and her left arm. Patient states that the symptoms have been ongoing for about the past 24 hours. Patient states also during this time she has noticed that she has had some poor coordination walking mostly with her left foot and her left hand. On arrival here to the ED the patient is mildly tachycardic, she is otherwise hemodynamically stable. Patient does not have any obvious focal deficits on arrival. ROS: - Per HPI Differential Diagnosis: Stroke, paresthesias, intracranial hemorrhage, multiple sclerosis, critical electrolyte abnormalities, amongst other potential pathologies. *Outpatient medications and allergy history reviewed. PE: General: Alert HEENT: Normocephalic, trachea midline Eyes: Extraocular eye movement is intact, no scleral erythema Pulmonary: Clear to auscultation bilaterally, no wheezing Cardio: Regular rate and rhythm GI: Abdomen is soft to palpation : No suprapubic tenderness MSK: No evidence of trauma or malformation of the extremities, no edema Skin: No evidence of rash Neuro: Alert, symmetrical facial movements are appreciated, there is no drift of the upper extremities or lower extremities bilaterally with testing against gravity, equal bilateral professor of food biochemistry strength, there is mild ataxia on the left side with [id number] testing bilaterally, no ataxia noted on the right side Psychiatric: Cooperative INDEPENDENT INTERPRETATIONS: cafeteria monitor: (As interpreted by myself): - An order was placed for continuous cardiac monitoring - Patient was noted to be in sinus rhythm with a rate of 105 EKG: (As interpreted by myself): Rate: 103 Rhythm: Sinus tachycardia Intervals: Within normal limits ST changes: No ST elevation Time: 904 Interventions: -Aspirin NIH STROKE SCALE: 1A: Level of consciousness Alert; keenly responsive 0 1B: Ask month and age Both questions right 0 1C: 'Blink eyes' & 'squeeze hands' Performs both tasks 0 2: Horizontal extraocular movements Normal 0 3: Visual jennings No visual loss 0 4: Facial palsy Normal symmetry 0 5A: Left arm motor drift No drift for 10 seconds 0 5B: Right arm motor drift No drift for 10 seconds 0 6A: Left leg motor drift No drift for 5 seconds 0 6B: Right leg motor drift No drift for 5 seconds 0 7: Limb Ataxia Ataxia in 1 Limb +1 8: Sensation Normal; no sensory loss 0 9: Language/aphasia Normal; no aphasia 0 10: Dysarthria Normal 0 11: Extinction/inattention No abnormality 0 TOTAL NIH SCORE = 1 Medical Decision Making: IV was established and lab work obtained, patient was placed on cardiac monitor technician. Patient was not considered a candidate for thrombolytics secondary to her symptom onset being about 24 hours prior to arrival here to the ED. NIH stroke scale was calculated by myself at the bedside as a score of 1 for some ataxia that was noted on the left upper extremity with [id number] testing. Patient otherwise appears well. Lab work shows no leukocytosis, hemoglobin is normal, platelet count is normal, CMP does not show any evidence of any critical findings. Troponin is negative. EKG per my interpretation shows sinus rhythm without any acute ischemic changes or evidence of arrhythmia. CT angiography of the head and neck were obtained and there is no evidence of any acute infarct, there is evidence of a 3.5 cm scalp abnormality in the superior and posterior portion of the scalp that appears consistent with a hematoma and imaging. I was able to palpate this on exam, unclear whether this is a hematoma or some type of lesion. Patient states she did have a fall earlier this morning and she does believe she hit her head but she states it was not this part of her head. There is no evidence of any open wounds or bleeding. I recommended the patient follow-up with her PCP for further management of this nonspecific finding. Patient is unclear/unsure of how long this area of swelling might have been present. In regards to the patient's symptoms, MRI imaging of the brain was ordered following my discussion with the patient. I did receive a call from the [facility] radiologist in regards to the finding of an acute to subacute stroke in the right thalamus. Patient was ordered aspirin. [facility] hospitalist was consulted for admission. Patient was placed for admission in stable condition. Consultants/Discussions held with other healthcare providers: -Hospitalist, Dr. Shaver Diagnosis: 1. Acute thalamic stroke 2. Left-sided ataxia, acute 3. Left-sided paresthesias, acute 4. 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 Menopause Fatigue Hyperthyroidism Conjunctiva disorder Chronic respiratory failure with hypoxia and hypercapnia GERD (gastroesophageal reflux disease) Hyponatremia Hyperthyroidism Acute heart failure with preserved ejection fraction (HFpEF) Multiple thyroid nodules Unilateral vocal cord paralysis History of B-cell lymphoma S/P CHEMO (IN REMISSION) Pulmonary HTN Hypertension Diabetes mellitus, type 2 NIDDM Tobacco abuse COPD (chronic obstructive pulmonary disease) Nocturnal hypoxemia Severe obstructive sleep apnea On home oxygen therapy HS with CPAP H/O umbilical hernia repair SOB (shortness of breath) (Acute) Lumbar radiculopathy Medical History Gallstones Follicular lymphoma Scoliosis Chronic back pain Hyperlipidemia Sleep apnea Surgical History History of oophorectomy, unilateral History of back surgery (~1978) History of esophagogastroduodenoscopy (EGD) History of colonoscopy Family History Uncle Family history of diabetes mellitus Diabetes Cancer Brother Family history of reaction to anesthesia Mother Cancer Grandmother Cancer Father Heart disease Social History Smoking Status: Current every day smoker Tobacco Type: Cigarettes Cigarettes Per Day: 5 cigarettes; Second Hand Exposure: Yes; Do You Dip or Chew Tobacco: No; Hx Alcohol Use: No Hx Substance Use: No Preferred Language: Niuean Communication Ability: Effective Marketing And Public Relations Manager Required: No Beliefs That Will Affect Care: None marital status: Single Current Living Situation: Alone current occupational status: retired Feels Safe at Home: Yes Assistive Devices: CPAP, Oxygen - at Night and Walker Allergies Allergies Allergy/AdvReac Type Severity Reaction Status Date / Time adhesive Allergy Unknown TEGADERM-SEVERE Verified 09/30/24 08:43 SKIN IRRITATION/RASH No Known Drug Allergies Allergy Unknown . Verified 09/30/24 08:43 Home Meds Home Medications Medication Instructions Recorded Confirmed lisinopril 10 mg tablet 10 mg PO QAM 02/13/19 10/19/24 albuterol sulfate 90 mcg/actuation 1 inh inhalation QID PRN sob 08/09/22 10/19/24 aerosol inhaler (Ventolin HFA) gabapentin 600 mg tablet 600 mg PO TID 08/09/22 10/19/24 bupropion HCl 300 mg 24 hr tablet, 300 mg PO QAM 04/04/24 10/19/24 extended release (Wellbutrin XL) escitalopram oxalate 10 mg tablet 10 mg PO DAILY 04/04/24 10/19/24 (Lexapro) metformin 1,000 mg tablet 1,000 mg PO BID 04/04/24 10/19/24 atorvastatin 80 mg tablet 80 mg PO DAILY 05/02/24 10/19/24 semaglutide 7 mg tablet (Rybelsus) 7 mg PO DAILY 05/02/24 10/19/24 Previous Rx's Medication Instructions Recorded furosemide 20 mg tablet 20 mg PO QAM #30 tabs 03/12/24 methimazole 5 mg tablet 15 mg (3 x 5 mg) PO BID 03/12/24 hyperthyroidism #180 tabs pantoprazole 40 mg tablet,delayed 40 mg PO QAM GERD with dysphagia 03/12/24 release #30 tabs spironolactone 25 mg tablet 25 mg PO QAM #30 tabs 03/12/24 umeclidinium 62.5 mcg-vilanterol 1 inh inhalation DAILY COPD #60 ea 03/12/24 25 mcg/actuation powdr for inhalation (Anoro Ellipta) Oxygen Home #1 ea 03/25/24 metoprolol succinate 25 mg 25 mg PO QAM #90 tabs 04/04/24 tablet,extended release 24 hr simvastatin 40 mg tablet 40 mg PO HS #100 tabs 06/27/24 empagliflozin 10 mg tablet 10 mg PO DAILY #90 tabs 07/04/24 (Jardiance) Results & Data (ED) Vital Signs Vital Signs - 24 hr 10/19/24 08:51 10/19/24 09:09 10/19/24 09:13 Temperature 36.6 C Temperature Source Temporal Artery Scan Pulse Rate 112 H 105 H Pulse Rate [Apical] Pulse Rate from SpO2 Sensor Respiratory Rate 20 Respiratory Effort / Characteristics Non-Labored Spontaneous Respiratory Depth Normal Respiratory Pattern Blood Pressure 156/74 H 172/129 H Blood Pressure [Right Arm] Blood Pressure Mean 101 133 Blood Pressure Mean [Right Arm] Pulse Oximetry 95 Oxygen Delivery Method Room Air Sepsis Recent Fever Within 48 Hours No Sepsis New/Unexplained Change in Mental Status N/A Sepsis Action Taken by Nursing No Action Required 10/19/24 09:15 10/19/24 09:24 10/19/24 09:30 Temperature Temperature Source Pulse Rate 101 H 107 H Pulse Rate [Apical] Pulse Rate from SpO2 Sensor 106 H Respiratory Rate 22 22 Respiratory Effort / Characteristics Respiratory Depth Respiratory Pattern Blood Pressure 133/81 Blood Pressure [Right Arm] Blood Pressure Mean 92 Blood Pressure Mean [Right Arm] Pulse Oximetry 95 Oxygen Delivery Method Room Air Sepsis Recent Fever Within 48 Hours Sepsis New/Unexplained Change in Mental Status Sepsis Action Taken by Nursing 10/19/24 09:48 10/19/24 10:27 10/19/24 10:31 Temperature Temperature Source Pulse Rate 108 H 104 H Pulse Rate [Apical] Pulse Rate from SpO2 Sensor 115 H 104 H Respiratory Rate 25 H 26 H Respiratory Effort / Characteristics Respiratory Depth Respiratory Pattern Blood Pressure 142/78 H Blood Pressure [Right Arm] Blood Pressure Mean 85 Blood Pressure Mean [Right Arm] Pulse Oximetry 95 95 Oxygen Delivery Method Room Air Room Air Sepsis Recent Fever Within 48 Hours Sepsis New/Unexplained Change in Mental Status Sepsis Action Taken by Nursing 10/19/24 10:42 10/19/24 11:00 10/19/24 11:39 Temperature Temperature Source Pulse Rate 106 H 107 H 116 H Pulse Rate [Apical] Pulse Rate from SpO2 Sensor 105 H 108 H 117 H Respiratory Rate 18 18 Respiratory Effort / Characteristics Respiratory Depth Respiratory Pattern Blood Pressure Blood Pressure [Right Arm] Blood Pressure Mean Blood Pressure Mean [Right Arm] Pulse Oximetry 91 Oxygen Delivery Method Room Air Sepsis Recent Fever Within 48 Hours Sepsis New/Unexplained Change in Mental Status Sepsis Action Taken by Nursing 10/19/24 14:42 Temperature Temperature Source Pulse Rate Pulse Rate [Apical] 108 H Pulse Rate from SpO2 Sensor Respiratory Rate 20 Respiratory Effort / Characteristics Non-Labored Spontaneous Respiratory Depth Normal Respiratory Pattern Regular Blood Pressure Blood Pressure [Right Arm] 128/82 Blood Pressure Mean Blood Pressure Mean [Right Arm] 97 Pulse Oximetry 94 Oxygen Delivery Method Room Air Sepsis Recent Fever Within 48 Hours Sepsis New/Unexplained Change in Mental Status Sepsis Action Taken by Nursing Laboratory Data 10/19/24 09:10 10/19/24 10:08 Lab Results 10/19/24 10/19/24 10/19/24 Range/Units 09:10 09:24 10:08 WBC 8.66 (4.8-10.8) K/ul RBC 4.85 (4.20-5.40) M/uL Hgb 14.9 (12.0-16.0) g/dl Hct 45.6 (37.0-47.0) % MCV 94.0 (80.0-100.0) fL MCH 30.7 (25.0-34.0) pg MCHC 32.7 (32.0-36.0) g/dL RDW Std Deviation 47.0 H (36.4-46.3) fL RDW Coeff of Judith 13.6 (11.5-14.5) % Plt Count 307 (130-400) K/uL MPV 9.4 (9.4-12.4) fL Immature Gran % (Auto) 0.3 % Neut % (Auto) 75.0 % Lymph % (Auto) 18.5 % [place] % (Auto) 5.2 % Eos % (Auto) 0.8 % Baso % (Auto) 0.2 % Neut # (Auto) 6.49 (1.40-6.50) K/uL Lymph # (Auto) 1.60 (1.20-3.40) K/uL [place] # (Auto) 0.45 (0.11-0.59) K/uL Eos # (Auto) 0.07 (0.00-0.50) K/uL Baso # (Auto) 0.02 (0.00-0.20) K/uL Immature Gran # (Auto) 0.03 (0.01-0.20) K/uL PT Cancelled 10.7 INR Cancelled 1.0 APTT Cancelled 27 PTT Ratio Cancelled 1.0 Sodium 134 L (136-145) mmol/L Potassium TNP 4.6 Chloride 103 (98-107) mmol/L Carbon Dioxide 24 (21-32) mmol/L Anion Gap 7 (3-11) BUN 6 (6-23) mg/dl Creatinine 0.39 L (0.6-1.2) mg/dl Est Cr Clr Drug Dosing 152.6 ml/min eGFR 113.22 BUN/Creatinine Ratio 15.4 (10-20) Glucose 101 H (70-99(Fasting)) mg/dl Calcium 9.5 (8.6-10.3) mg/dl Magnesium 2.0 (1.7-2.4) mg/dl Total Bilirubin 0.7 (0.2-1.0) mg/dl AST TNP 17 ALT 18 (7-52) U/L Alkaline Phosphatase 149 H (34-104) U/L Troponin I High Sens 7.0 (0-14) pg/ml Total Protein 7.0 (6.0-8.3) gm/dl Albumin 3.9 (3.4-5.0) gm/dl Globulin 3.1 (2.5-4.0) gm/dl Albumin/Globulin Ratio 1.3 (0.9-2) Blood Type A Positive Antibody Screen NEGATIVE Administered Medications Discontinued Medications Ioversol (Optiray 320 125ml) 120 ml IV ONCE ONE Stop: 10/19/24 10:07 Last Admin: 10/19/24 10:06 Dose: 120 ml Documented By: NANY Imaging Data Radiologist's Impression: Head CT 10/19/24 09:05 CT OF THE HEAD WITHOUT CONTRAST CLINICAL HISTORY: neuro deficit, acute stroke suspected COMPARISON STUDY: PET/CT November 04, 2014. TECHNIQUE: Helical axial images of the head were obtained without IV contrast. Automated exposure control was utilized for the study. A dose lowering technique was utilized adhering to the principles of ALARA. FINDINGS: This exam is mildly compromised by motion artifact. White matter hypodensity suggests small vessel disease. A 1.9 cm hypodense focus within the left frontal lobe on axial image 21 of 32 favors a small old infarct. No acute intracranial hemorrhage, midline shift or mass effect is present. The ventricular system is unremarkable. The basal cisterns are patent. No extra- axial collections are present. There are no findings to suggest acute dural sinus thrombosis or acute territorial infarct. There is mild sinus mucosal thickening. IMPRESSION: 1. No acute intracranial findings. Exam mildly compromised by motion artifact. 2. 1.9 cm hypodense focus within the left frontal lobe which favors a small old infarct. ACT 112: Negative or not required by law. Electronically signed by: Nixon Canales M.D. 10/19/2024 10:27 AM Head CTA 10/19/24 09:05 CTA ANGIOGRAPHY OF THE HEAD CLINICAL HISTORY: neuro deficit, acute stroke suspected COMPARISON STUDY: No previous studies for comparison. TECHNIQUE: Helical axial images of the head were obtained following uneventful intravenous administration of 120 cc of Optiray. Sagittal and coronal reconstructions were viewed as well as maximal intensity projections on an independent 3-D workstation. Automated exposure control was utilized for the study. A dose lowering technique was utilized adhering to the principles of ALARA. FINDINGS: No acute intracranial hemorrhage, midline shift or mass effect is present. Ventricular system is normal. Basal cisterns are patent. There is a 3.7 cm right posterior superior hyperdense scalp abnormality. There is no calvarial fracture. The bilateral M1, M2, A1 and A2 segments are patent. No large vessel occlusion is present. Is no intracranial aneurysm. The left vertebral artery is dominant. There is persistence of the right posterior cerebral artery. IMPRESSION: 1. No large vessel occlusion. No intracranial aneurysm. 2. 3.7 cm hyperdense right posterior scalp abnormality. This favors a contusion however clinical follow-up to ensure resolution is recommended to exclude the possibility of a scalp lesion. No calvarial fracture. ACT 112: Negative or not required by law. Electronically signed by: Nixon Canales M.D. 10/19/2024 10:41 AM Neck CTA 10/19/24 09:05 CT ANGIOGRAPHY OF THE NECK WITH CONTRAST CLINICAL HISTORY: neuro deficit, acute stroke suspected COMPARISON STUDY: Neck CT October 16, 2023. Technique: CT angiography of the carotid and vertebral arteries was obtained using Optiray and 3D reconstruction on an independent workstation. NASCET criteria was utilized. Automated exposure control was utilized for the study. A dose lowering technique was utilized adhering to the principles of ALARA. CT DOSE: 1428.78 mGy.cm Findings: Multinodular thyroid goiter is again noted. This is similar in appearance to CT of October 16, 2023. The bilateral common carotid, cervical internal carotid and vertebral arteries are patent. There is moderate plaque within the proximal bilateral internal carotid arteries without stenosis. The left vertebral artery is dominant. There is no aneurysm or dissection within the neck. The right vertebral artery is diminutive on a congenital basis. This is unchanged. IMPRESSION: 1. Moderate plaque within the proximal bilateral internal carotid arteries without significant stenosis. 2. Dominant, patent left vertebral artery. 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 ACT 112: Negative or not required by law. Electronically signed by: Nixon Canales M.D. 10/19/2024 10:36 AM Brain MRI 10/19/24 10:49 MRI BRAIN WITHOUT CONTRAST TECHNIQUE: An MRI examination of the brain was performed utilizing sagittal and axial T1-weighted images as well as axial T2-weighted, FLAIR, gradient echo and diffusion-weighted images. INDICATION: Stroke COMPARISON: None FINDINGS: There is a small acute to subacute right thalamic lacunar infarction measuring 9 mm in size. The ventricular, sulcal and cisternal spaces are normal in caliber. There is no evidence of intracranial mass lesion, hydrocephalus, extra-axial fluid collection, or parenchymal hemorrhage. The cerebellar tonsils are normal in position. The pituitary gland is not enlarged. The major arterial vascular structures of the skull base are patent. Chronic white matter ischemic changes. No intraorbital soft tissue mass lesion is observed. The visualized paranasal sinuses are aerated. Mastoids are aerated. Probable epidermoid cyst over the right parietal scalp IMPRESSION: Acute to subacute right thalamic lacunar infarction measuring 9 mm in size. Probable epidermoid cyst over the right parietal scalp Notification to clinician of alert: [facility] was notified about above findings by phone on October 19, 2024 at 2:36 PM by Pratik Barcenas MD. Readback confirmation was obtained. Electronically signed by Pratik Barcenas 10-19-2024 2:38 PM Discharge Plan Visit Data Chief Complaint: TIA Symptoms Stated Complaint: LT FACE TINGLE,ARM/HAND NUMBNESS, TROUBLE WALKING ED Provider: Gaston Perez Discharge Problem: Stroke Forms Stand Alone Forms: My [facility] Prescriptions Prescriptions: No Action simvastatin 40 mg tablet 40 mg PO HS Qty: 100 3RF Jardiance 10 mg tablet 10 mg PO DAILY Qty: 90 3RF (DME) Oxygen Home Liters Per Minute See Rx Instructions .MEDSUPPLY Qty: 1 0RF Rx Instructions: Home Oxygen concentrator with portability, test for conserving device. 0LMP via n/c at rest and 1-2LPM via n/c with exertion and sleep; KORY 99. atorvastatin 80 mg tablet 80 mg PO DAILY Rybelsus 7 mg tablet 7 mg PO DAILY metformin 1,000 mg tablet 1,000 mg PO BID bupropion HCl [Wellbutrin XL] 300 mg tablet extended release 24 hr 300 mg PO QAM escitalopram oxalate [Lexapro] 10 mg tablet 10 mg PO DAILY metoprolol succinate 25 mg tablet extended release 24 hr 25 mg PO QAM Qty: 90 3RF lisinopril 10 mg Tablet 10 mg PO QAM gabapentin 600 mg Tablet 600 mg PO TID albuterol sulfate [Ventolin HFA] 90 mcg/actuation Hfa Aerosol Inhaler 1 inh INHALATION QID PRN (Reason: sob) Anoro Ellipta 62.5-25 mcg/actuation Blister With Device 1 inh inhalation DAILY Qty: 60 0RF Rx Instructions: may make formulary substitution methimazole 5 mg Tablet 15 mg PO BID Qty: 180 0RF pantoprazole 40 mg Tablet,Delayed Release (Dr/Ec) 40 mg PO QAM Qty: 30 0RF furosemide 20 mg Tablet 20 mg PO QAM Qty: 30 0RF spironolactone 25 mg Tablet 25 mg PO QAM Qty: 30 0RF Referrals Referrals: Renea Su MD [Primary Care Provider] -
[2024-10-19 09:30] LABS: Basophils # (auto) 0.02 K/uL (0.00-0.20); Basophils % (auto) 0.2 %; Eosinophils # (auto) 0.07 K/uL (0.00-0.50); Eosinophils % (auto) 0.8 %; Hematocrit (blood only) 45.6 % (37.0-47.0); Hemoglobin 14.9 g/dl (12.0-16.0); Immature Granulocytes # (auto) 0.03 K/uL (0.01-0.20); Immature Granulocytes % (auto) 0.3 %; Lymphocytes % (auto) 18.5 %; Mean Corpuscular Hemoglobin 30.7 pg (25.0-34.0); Mean Corpuscular Hgb Conc 32.7 g/dL (32.0-36.0); Mean Platelet Volume 9.4 fL (9.4-12.4); Monocytes # (auto) 0.45 K/uL (0.11-0.59); Monocytes % (auto) 5.2 %; Neutrophils # (auto) 6.49 K/uL (1.40-6.50); Platelet Count 307 K/uL (130-400); RDW Coefficient of Variation 13.6 % (11.5-14.5); Red Blood Count 4.85 M/uL (4.20-5.40); White Blood Count 8.66 K/ul (4.8-10.8)
[2024-10-19 09:50] LABS: Alanine Aminotransferase 18 U/L (7-52); Albumin Globulin Ratio 1.3 (0.9-2); Albumin Level 3.9 gm/dl (3.4-5.0); Alkaline Phosphatase 149 U/L (34-104); Anion Gap 7 (3-11); BUN Creatinine Ratio 15.4 (10-20); Bilirubin,Total 0.7 mg/dl (0.2-1.0); Blood Urea Nitrogen 6 mg/dl (6-23); Calcium 9.5 mg/dl (8.6-10.3); Carbon Dioxide 24 mmol/L (21-32); Chloride 103 mmol/L (98-107); Creatinine Clr Calc Pharmacy 152.6 ml/min; Globulin 3.1 gm/dl (2.5-4.0); Glucose 101 mg/dl (70-99(Fasting)); Sodium 134 mmol/L (136-145)
[2024-10-19] MEDS: OPTIRAY 320 125ml IV ONE (10:06)
--- NOTE | 2024-10-19 10:29 | CT Scan Report ---
CT OF THE HEAD WITHOUT CONTRAST CLINICAL HISTORY: neuro deficit, acute stroke suspected COMPARISON STUDY: PET/CT November 04, 2014. TECHNIQUE: Helical axial images of the head were obtained without IV contrast. Automated exposure con trol was utilized for the study. A dose lowering technique was utilized adhering to the principles o f ALARA. FINDINGS: This exam is mildly compromised by motion artifact. White matter hypodensity suggests small vessel disease. A 1.9 cm hypodense focus within the left frontal lobe on axial image 21 of 32 favors a small old infarct. No acute intracranial hemorrhage, midline shift or mass effect is present. The ventricular system is unremarkable. The basal cisterns are patent. No extra-axial collections are pre sent. There are no findings to suggest acute dural sinus thrombosis or acute territorial infarct. The re is mild sinus mucosal thickening. IMPRESSION: 1. No acute intracranial findings. Exam mildly compromised by motion artifact. 2. 1.9 cm hypodense focus within the left frontal lobe which favors a small old infarct. ACT 112: Negative or not required by law. Electronically signed by: Nixon Canales M.D. 10/19/2024 10:27 AM
--- NOTE | 2024-10-19 10:39 | CT Scan Report ---
CT ANGIOGRAPHY OF THE NECK WITH CONTRAST CLINICAL HISTORY: neuro deficit, acute stroke suspected COMPARISON STUDY: Neck CT October 16, 2023. Technique: CT angiography of the carotid and vertebral arteries was obtained using Optiray and 3D rec onstruction on an independent workstation. NASCET criteria was utilized. Automated exposure control was utilized for the study. A dose lowering technique was utilized adhering to the principles of ALA RA. CT DOSE: 1428.78 mGy.cm Findings: Multinodular thyroid goiter is again noted. This is similar in appearance to CT of October 16, 2023. The bilateral common carotid, cervical internal carotid and vertebral arteries are patent. There is moderate plaque within the proximal bilateral internal carotid arteries without stenosis. T he left vertebral artery is dominant. There is no aneurysm or dissection within the neck. The right v ertebral artery is diminutive on a congenital basis. This is unchanged. IMPRESSION: 1. Moderate plaque within the proximal bilateral internal carotid arteries without significant stenos is. 2. Dominant, patent left vertebral artery. 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 ACT 112: Negative or not required by law. Electronically signed by: Nixon Canales M.D. 10/19/2024 10:36 AM
[2024-10-19 10:41] LABS: Potassium 4.6 mmol/L (3.5-5.1)
--- NOTE | 2024-10-19 10:42 | CT Scan Report ---
CTA ANGIOGRAPHY OF THE HEAD CLINICAL HISTORY: neuro deficit, acute stroke suspected COMPARISON STUDY: No previous studies for comparison. TECHNIQUE: Helical axial images of the head were obtained following uneventful intravenous administr ation of 120 cc of Optiray. Sagittal and coronal reconstructions were viewed as well as maximal inten sity projections on an independent 3-D workstation. Automated exposure control was utilized for the study. A dose lowering technique was utilized adhering to the principles of ALARA. FINDINGS: No acute intracranial hemorrhage, midline shift or mass effect is present. Ventricular syst em is normal. Basal cisterns are patent. There is a 3.7 cm right posterior superior hyperdense scalp abnormality. There is no calvarial fracture. The bilateral M1, M2, A1 and A2 segments are patent. No large vessel occlusion is present. Is no intracranial aneurysm. The left vertebral artery is dominant . There is persistence of the right posterior cerebral artery. IMPRESSION: 1. No large vessel occlusion. No intracranial aneurysm. 2. 3.7 cm hyperdense right posterior scalp abnormality. This favors a contusion however clinical foll ow-up to ensure resolution is recommended to exclude the possibility of a scalp lesion. No calvarial fracture. ACT 112: Negative or not required by law. Electronically signed by: Nixon Canales M.D. 10/19/2024 10:41 AM
[2024-10-19 11:02] LABS: Partial Thromboplastin Time 27 Seconds (21-31); Prothrombin Time 10.7 Seconds (9.0-12.0)
--- NOTE | 2024-10-19 14:40 | Magnetic Resonance Report ---
MRI BRAIN WITHOUT CONTRAST TECHNIQUE: An MRI examination of the brain was performed utilizing sagittal and axial T1-weighted images as well as axial T2-weighted, FLAIR, gradient echo and diffusion-weighted images. INDICATION: Stroke COMPARISON: None FINDINGS: There is a small acute to subacute right thalamic lacunar infarction measuring 9 mm in size. The ventricular, sulcal and cisternal spaces are normal in caliber. There is no evidence of intracranial mass lesion, hydrocephalus, extra-axial fluid collection, or parenchymal hemorrhage. The cerebellar tonsils are normal in position. The pituitary gland is not enlarged. The major arterial vascular structures of the skull base are patent. Chronic white matter ischemic changes. No intraorbital soft tissue mass lesion is observed. The visualized paranasal sinuses are aerated. Mastoids are aerated. Probable epidermoid cyst over the right parietal scalp IMPRESSION: Acute to subacute right thalamic lacunar infarction measuring 9 mm in size. Probable epidermoid cyst over the right parietal scalp Notification to clinician of alert: [facility] was notified about above findings by phone on October 19, 2024 at 2:36 PM by Pratik Barcenas MD. Readback confirmation was obtained. Electronically signed by Pratik Barcenas 10-19-2024 2:38 PM
[2024-10-19] MEDS: ACETAMINOPHEN 325 MG TAB PO STA (14:50)
[2024-10-19] MEDS: ASPIRIN CHEW 324 MG PO STA (14:51)
--- NOTE | 2024-10-19 15:08 | Electrocardiogram Report ---
Test Reason : Blood Pressure : */* mmHG Vent. Rate : 103 BPM Atrial Rate : 103 BPM P-R Int : 140 ms QRS Dur : 74 ms QT Int : 348 ms P-R-T Axes : 17 71 47 degrees QTcB Int : 455 ms Sinus tachycardia Otherwise normal ECG When compared with ECG of 04-Mar-2024 15:28, No significant change was found Confirmed by Raman Robbins ([id number]) on 10/19/2024 3:08:26 PM Referred By: Confirmed By: Raman Robbins
[2024-10-19] MEDS ORDERED: ALBUTEROL HFA 8 GM INHALER INH PRN (16:52)
[2024-10-19] MEDS ORDERED: DEXTROSE 50% 50 ML SYRINGE IV PRN (16:52)
[2024-10-19] MEDS ORDERED: GLUCAGON FOR INJ 1 MG VIAL SQ PRN (16:52)
[2024-10-19] MEDS ORDERED: GLUCOSE 40% GEL 15 GM TUBE PO PRN (16:52)
[2024-10-19] MEDS ORDERED: MAGNESIUM HYDROXIDE SUSP 30 ML UDC PO PRN (16:52)
[2024-10-19] MEDS ORDERED: ONDANSETRON INJ 2 MG/ML 2 ML VIAL IV PRN (16:52)
[2024-10-19] MEDS ORDERED: CARBOHYDRATES FOR HYPOGLYCEMIA PO PRN (16:52)
[2024-10-19] MEDS ORDERED: PHARMACY GLYCEMIC MGMT CONSULT PRN (16:52)
[2024-10-19] MEDS ORDERED: GLUCOSE 10 TAB/TUBE PO PRN (16:52)
[2024-10-19] MEDS ORDERED: ACETAMINOPHEN 325 MG TAB PO PRN (16:52)
[2024-10-19] MEDS ORDERED: PHARMACIST DISCHARGE MED REC CONSULT PRN (16:52)
[2024-10-19] MEDS ORDERED: POLYETHYLENE (MIRALAX) 17 GM PACK PO PRN (16:52)
[2024-10-19] MEDS ORDERED: ALUMINUM/MAGNESIUM SUSP 30 ML UDC PO PRN (16:52)
[2024-10-19] MEDS: INSULIN ASPART PER UNIT CHARGE SC SCH (17:02)
--- NOTE | 2024-10-19 17:36 | History & Physical Report ---
Date of Service October 19, 2024 Assessment & Plan (1) Stroke: Plan: Patient presented with left facial and arm numbness along with ataxia and falls MRI showed right thalamic stroke CT head, CTA of the head and neck were unremarkable Monitor on telemetry Check echocardiogram Consult neurology Start aspirin Counseled on smoking cessation Check lipid panel Check A1c Allow permissive hypertension (2) Hypertension: Plan: Allow permissive hypertension Hold Lasix, lisinopril, metoprolol, spironolactone (3) Chronic diastolic (congestive) heart failure: Plan: Hold Lasix, metoprolol to allow permissive (4) Hyperthyroidism: Plan: Continue methimazole (5) Tobacco abuse: Plan: Advised on smoking cessation (6) COPD (chronic obstructive pulmonary disease): Plan: Continue inhalers Not in acute distress (7) Severe obstructive sleep apnea: Plan: Ordered CPAP (8) Diabetes mellitus, type 2: Plan: Sliding scale insulin ordered Hold oral hypoglycemic agents Check A1c Plan CODE STATUS: DNR/DNI DVT prophylaxis: Lovenox Admission and Anticipated Discharge Date Admission Date: October 19, 2024 History of Present Illness Chief Complaint: Left face and arm numbness, imbalance gait, fall x 2 that started 1 day ago Primary Care Provider: Renea Su MD This is a 59-year-old female, active smoker, with history of non-insulin- dependent diabetes mellitus type 2, benign essential hypertension, hyperlipidemia who presented with the above chief complaint The patient stated that she had some tingling in the left side of her face and arm since yesterday morning. It was coming and going but it became more stable since last night. This morning she tried to go to the bathroom and fell twice because she had an imbalance gait. She thus came to the emergency room. CT head showed no acute findings but an old left frontal lobe infarct. CTA of head and neck were unremarkable. Brain MRI showed an acute right thalamic lacunar infarct. She is being admitted with a diagnosis of stroke. She is not a candidate for TNKase because she has had symptoms for more than 24 hours. She says that her left leg still feels weak. She does not take any aspirin or blood thinners at home. Past medical history 1. Benign essential hypertension 2. [id number] diabetes mellitus type 2 3. COPD 4. GERD 5. Acute diastolic congestive heart failure 6. Obstructive sleep apnea 7. Nicotine dependence with active tobacco abuse 8. Hypothyroidism with multinodular goiter 9. History of lymphoma. In remission. Allergies Allergy/AdvReac Type Severity Reaction Status Date / Time adhesive Allergy Unknown TEGADERM-SEVERE Verified 09/30/24 08:43 SKIN IRRITATION/RASH No Known Drug Allergies Allergy Unknown . Verified 09/30/24 08:43 Home Medications Medication Instructions Recorded Confirmed Type lisinopril 10 mg tablet 10 mg PO QAM 02/13/19 10/19/24 History albuterol sulfate 90 mcg/actuation 1 inh inhalation QID PRN sob 08/09/22 10/19/24 History aerosol inhaler (Ventolin HFA) gabapentin 600 mg tablet 600 mg PO TID 08/09/22 10/19/24 History furosemide 20 mg tablet 20 mg PO QAM #30 tabs 03/12/24 10/19/24 Rx methimazole 5 mg tablet 15 mg (3 x 5 mg) PO BID 03/12/24 10/19/24 Rx hyperthyroidism #180 tabs pantoprazole 40 mg tablet,delayed 40 mg PO QAM GERD with dysphagia 03/12/24 10/19/24 Rx release #30 tabs spironolactone 25 mg tablet 25 mg PO QAM #30 tabs 03/12/24 10/19/24 Rx umeclidinium 62.5 mcg-vilanterol 1 inh inhalation DAILY COPD #60 ea 03/12/24 10/19/24 Rx 25 mcg/actuation powdr for inhalation (Anoro Ellipta) Oxygen Home #1 ea 03/25/24 09/30/24 Rx bupropion HCl 300 mg 24 hr tablet, 300 mg PO QAM 04/04/24 10/19/24 History extended release (Wellbutrin XL) escitalopram oxalate 10 mg tablet 10 mg PO DAILY 04/04/24 10/19/24 History (Lexapro) metformin 1,000 mg tablet 1,000 mg PO BID 04/04/24 10/19/24 History metoprolol succinate 25 mg 25 mg PO QAM #90 tabs 04/04/24 10/19/24 Rx tablet,extended release 24 hr atorvastatin 80 mg tablet 80 mg PO DAILY 05/02/24 10/19/24 History semaglutide 7 mg tablet (Rybelsus) 7 mg PO DAILY 05/02/24 10/19/24 History simvastatin 40 mg tablet 40 mg PO HS #100 tabs 06/27/24 10/19/24 Rx empagliflozin 10 mg tablet 10 mg PO DAILY #90 tabs 07/04/24 10/19/24 Rx (Jardiance) Past Med/Surg History Problem List (Updated 10/19/24 @ 17:39 by Houston Shaver MD) Chronic diastolic (congestive) heart failure Stroke (Acute) Toxic multinodular goiter w/o crisis terminal gauger (current) use of inhaled steroids Menopause Fatigue Hyperthyroidism Conjunctiva disorder Chronic respiratory failure with hypoxia and hypercapnia GERD (gastroesophageal reflux disease) Hyponatremia Hyperthyroidism Acute heart failure with preserved ejection fraction (HFpEF) Multiple thyroid nodules Unilateral vocal cord paralysis History of B-cell lymphoma S/P CHEMO (IN REMISSION) Pulmonary HTN Hypertension Diabetes mellitus, type 2 NIDDM Tobacco abuse COPD (chronic obstructive pulmonary disease) Nocturnal hypoxemia Severe obstructive sleep apnea On home oxygen therapy HS with CPAP H/O umbilical hernia repair SOB (shortness of breath) (Acute) Lumbar radiculopathy Medical History Gallstones NO ISSUES WITH FOR MONTHS Follicular lymphoma S/P CHEMO (IN REMISSION) Scoliosis Chronic back pain Hyperlipidemia Sleep apnea uses CPAP -> cpap has "" in june 2022. instructed to follow up with PCP regarding the CPAP. Surgical History History of oophorectomy, unilateral RIGHT History of back surgery (~1978) X 2. HARDWARE PRESENT History of esophagogastroduodenoscopy (EGD) History of colonoscopy W/ POLYPECTOMY Family History Uncle Family history of diabetes mellitus Diabetes Cancer Brother Family history of reaction to anesthesia PT DOES NOT RECALL SPECIFICS BUT KNOWS HER BROTHER HAD ANESTHESIA RELATED COMPLICATIONS. DENIES MH, PD. Mother Cancer Grandmother Cancer Father Heart disease Social History Smoking Status: Current every day smoker Tobacco Type: Cigarettes Cigarettes Per Day: 5 cigarettes; Second Hand Exposure: Yes; Do You Dip or Chew Tobacco: No; Hx Alcohol Use: No Hx Substance Use: No Preferred Language: German Communication Ability: Effective Scrubber System Attendant Required: No Beliefs That Will Affect Care: None marital status: Single Current Living Situation: Alone current occupational status: retired Feels Safe at Home: Yes Assistive Devices: CPAP, Oxygen - at Night and Walker Review of Systems Review of Systems: All systems reviewed & are unremarkable except as noted in Subjective Physical Exam Physical Exam: General appearance: Awake, conversant, able to answer questions appropriately. AOx3. Pupils: Equally reactive to light and accommodation Neck: No masses, no thyromegaly Respiration: Clear to auscultation bilaterally. Normal effort Cardiovascular: S1-S2/regular rate and rhythm. No murmur, rubs or gallop. No edema. Abdomen: Soft, nontender, nondistended. No hepatosplenomegaly Musculoskeletal: No clubbing, no cyanosis, normal range of motion Skin: No rashes, no nodules Neuro exam: Cranial nerves intact, sensation grossly intact. 4/5 motor strength noted in left upper and lower extremity Psychiatric: Patient has good judgment and insight. AOx3. Mood and affect appear normal Lymphatics: No cervical or axillary lymphadenopathy noted Results & Data Results & Data Vital Signs (Past 12 Hours) Vital Signs Temp Pulse Pulse Pulse Resp BP BP 10/19/24 17:04 10/19/24 16:57 36.6 C 96 H 18 131/64 10/19/24 16:17 104 H 20 101/83 10/19/24 15:08 10/19/24 14:42 108 H 20 128/82 10/19/24 11:39 116 H 18 10/19/24 11:00 107 H 10/19/24 10:42 106 H 18 10/19/24 10:31 142/78 H 10/19/24 10:27 104 H 26 H 10/19/24 09:48 108 H 25 H 10/19/24 09:30 133/81 10/19/24 09:24 107 H 22 10/19/24 09:15 101 H 22 10/19/24 09:13 105 H 10/19/24 09:09 172/129 H 10/19/24 08:51 36.6 C 112 H 20 156/74 H Pulse Ox Pulse Ox O2 Del Method O2 Del Method O2 Flow Rate O2 Flow Rate 10/19/24 17:04 98 Nasal Cannula 2 10/19/24 16:57 95 Nasal Cannula 2 10/19/24 16:17 96 Nasal Cannula 10/19/24 15:08 88 L Nasal Cannula 0 10/19/24 14:42 94 Room Air 10/19/24 11:39 10/19/24 11:00 91 Room Air 10/19/24 10:42 10/19/24 10:31 10/19/24 10:27 95 Room Air 10/19/24 09:48 95 Room Air 10/19/24 09:30 10/19/24 09:24 95 Room Air 10/19/24 09:15 10/19/24 09:13 10/19/24 09:09 10/19/24 08:51 95 Room Air Laboratory Results Abnormal lab results 10/19/24 Range/Units 09:10 RDW Std Deviation 47.0 H (36.4-46.3) fL Sodium 134 L (136-145) mmol/L Creatinine 0.39 L (0.6-1.2) mg/dl Glucose 101 H (70-99(Fasting)) mg/dl Alkaline Phosphatase 149 H (34-104) U/L Diagnostic Findings Head CT 10/19/24 09:05 CT OF THE HEAD WITHOUT CONTRAST CLINICAL HISTORY: neuro deficit, acute stroke suspected COMPARISON STUDY: PET/CT November 04, 2014. TECHNIQUE: Helical axial images of the head were obtained without IV contrast. Automated exposure control was utilized for the study. A dose lowering technique was utilized adhering to the principles of ALARA. FINDINGS: This exam is mildly compromised by motion artifact. White matter hypodensity suggests small vessel disease. A 1.9 cm hypodense focus within the left frontal lobe on axial image 21 of 32 favors a small old infarct. No acute intracranial hemorrhage, midline shift or mass effect is present. The ventricular system is unremarkable. The basal cisterns are patent. No extra- axial collections are present. There are no findings to suggest acute dural sinus thrombosis or acute territorial infarct. There is mild sinus mucosal thickening. IMPRESSION: 1. No acute intracranial findings. Exam mildly compromised by motion artifact. 2. 1.9 cm hypodense focus within the left frontal lobe which favors a small old infarct. ACT 112: Negative or not required by law. Electronically signed by: Nixon Canales M.D. 10/19/2024 10:27 AM Head CTA 10/19/24 09:05 CTA ANGIOGRAPHY OF THE HEAD CLINICAL HISTORY: neuro deficit, acute stroke suspected COMPARISON STUDY: No previous studies for comparison. TECHNIQUE: Helical axial images of the head were obtained following uneventful intravenous administration of 120 cc of Optiray. Sagittal and coronal reconstructions were viewed as well as maximal intensity projections on an independent 3-D workstation. Automated exposure control was utilized for the study. A dose lowering technique was utilized adhering to the principles of ALARA. FINDINGS: No acute intracranial hemorrhage, midline shift or mass effect is present. Ventricular system is normal. Basal cisterns are patent. There is a 3.7 cm right posterior superior hyperdense scalp abnormality. There is no calvarial fracture. The bilateral M1, M2, A1 and A2 segments are patent. No large vessel occlusion is present. Is no intracranial aneurysm. The left vertebral artery is dominant. There is persistence of the right posterior cerebral artery. IMPRESSION: 1. No large vessel occlusion. No intracranial aneurysm. 2. 3.7 cm hyperdense right posterior scalp abnormality. This favors a contusion however clinical follow-up to ensure resolution is recommended to exclude the possibility of a scalp lesion. No calvarial fracture. ACT 112: Negative or not required by law. Electronically signed by: Nixon Canales M.D. 10/19/2024 10:41 AM Neck CTA 10/19/24 09:05 CT ANGIOGRAPHY OF THE NECK WITH CONTRAST CLINICAL HISTORY: neuro deficit, acute stroke suspected COMPARISON STUDY: Neck CT October 16, 2023. Technique: CT angiography of the carotid and vertebral arteries was obtained using Optiray and 3D reconstruction on an independent workstation. NASCET criteria was utilized. Automated exposure control was utilized for the study. A dose lowering technique was utilized adhering to the principles of ALARA. CT DOSE: 1428.78 mGy.cm Findings: Multinodular thyroid goiter is again noted. This is similar in appearance to CT of October 16, 2023. The bilateral common carotid, cervical internal carotid and vertebral arteries are patent. There is moderate plaque within the proximal bilateral internal carotid arteries without stenosis. The left vertebral artery is dominant. There is no aneurysm or dissection within the neck. The right vertebral artery is diminutive on a congenital basis. This is unchanged. IMPRESSION: 1. Moderate plaque within the proximal bilateral internal carotid arteries without significant stenosis. 2. Dominant, patent left vertebral artery. 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 ACT 112: Negative or not required by law. Electronically signed by: Nixon Canales M.D. 10/19/2024 10:36 AM Brain MRI 10/19/24 10:49 MRI BRAIN WITHOUT CONTRAST TECHNIQUE: An MRI examination of the brain was performed utilizing sagittal and axial T1-weighted images as well as axial T2-weighted, FLAIR, gradient echo and diffusion-weighted images. INDICATION: Stroke COMPARISON: None FINDINGS: There is a small acute to subacute right thalamic lacunar infarction measuring 9 mm in size. The ventricular, sulcal and cisternal spaces are normal in caliber. There is no evidence of intracranial mass lesion, hydrocephalus, extra-axial fluid collection, or parenchymal hemorrhage. The cerebellar tonsils are normal in position. The pituitary gland is not enlarged. The major arterial vascular structures of the skull base are patent. Chronic white matter ischemic changes. No intraorbital soft tissue mass lesion is observed. The visualized paranasal sinuses are aerated. Mastoids are aerated. Probable epidermoid cyst over the right parietal scalp IMPRESSION: Acute to subacute right thalamic lacunar infarction measuring 9 mm in size. Probable epidermoid cyst over the right parietal scalp Notification to clinician of alert: [facility] was notified about above findings by phone on October 19, 2024 at 2:36 PM by Pratik Barcenas MD. Readback confirmation was obtained. Electronically signed by Pratik Barcenas 10-19-2024 2:38 PM PG Care Time/CCT Total # of Minutes Spent Total Time Spent with Patient: Total time spent is greater than 50% in coordination of care (as documented) at patient's floor/unit and/or counseling patient: Coding Level of Care Code 80128 INT INP/OBS CARE 2/55MIN Diagnoses Stroke I63.9 Hypertension I10 Chronic diastolic (congestive) heart failure I50.32 Hyperthyroidism E05.90 Tobacco abuse Z72.0 COPD (chronic obstructive pulmonary disease) J44.9 Severe obstructive sleep apnea G47.33 Diabetes mellitus, type 2 E11.9
[2024-10-19] MEDS: methIMAzole 5 MG TABLET PO SCH (20:51)
[2024-10-20 07:20] LABS: Basophils # (auto) 0.02 K/uL (0.00-0.20); Basophils % (auto) 0.3 %; Eosinophils % (auto) 1.5 %; Hematocrit (blood only) 46.3 % (37.0-47.0); Hemoglobin 15.2 g/dl (12.0-16.0); Immature Granulocytes # (auto) 0.02 K/uL (0.01-0.20); Immature Granulocytes % (auto) 0.3 %; Lymphocytes # (auto) 1.52 K/uL (1.20-3.40); Lymphocytes % (auto) 22.3 %; Mean Corpuscular Hemoglobin 30.6 pg (25.0-34.0); Mean Corpuscular Hgb Conc 32.8 g/dL (32.0-36.0); Mean Corpuscular Volume 93.3 fL (80.0-100.0); Mean Platelet Volume 9.4 fL (9.4-12.4); Monocytes # (auto) 0.46 K/uL (0.11-0.59); Monocytes % (auto) 6.8 %; Neutrophils # (auto) 4.69 K/uL (1.40-6.50); Neutrophils % (auto) 68.8 %; Platelet Count 304 K/uL (130-400); RDW Coefficient of Variation 13.6 % (11.5-14.5); RDW Standard Deviation 46.6 fL (36.4-46.3); Red Blood Count 4.96 M/uL (4.20-5.40); White Blood Count 6.81 K/ul (4.8-10.8)
[2024-10-20 07:24] LABS: BUN Creatinine Ratio 22.7 (10-20); Calcium 9.4 mg/dl (8.6-10.3); Chol HDL Ratio 4.7 (0-5); Creatinine Clr Calc Pharmacy 122.2 ml/min; Potassium 5.2 mmol/L (3.5-5.1)
[2024-10-20 08:11] LABS: Estimated Average Glucose 143 mg/dl; Hemoglobin A1C 6.6 % (4.5-5.6)
[2024-10-20] MEDS: ASPIRIN 81 MG ECTAB PO SCH (08:37)
[2024-10-20] MEDS: UMECLIDINIUM/VILANTEROL 62.5/25MCG 7 PUFFS/INHALER INH SCH (08:38)
[2024-10-20] MEDS: ESCITALOPRAM OXALATE 10 MG TAB PO SCH (08:38)
[2024-10-20] MEDS: buPROPion XL 300 MG TABCR PO SCH (08:38)
[2024-10-20] MEDS: PANTOprazole 40 MG TAB PO SCH (08:38)
[2024-10-20] MEDS: ENOXAPARIN INJ 40 MG/0.4 ML SYR SQ SCH (08:38)
[2024-10-20] MEDS ORDERED: ATORVASTATIN 40 MG TAB PO SCH (09:00)
[2024-10-20] MEDS: ATORVASTATIN 40 MG TAB PO SCH (11:18)
[2024-10-20] MEDS: METOPROLOL SUCC 25MG EXT REL TAB PO SCH (11:19)
--- NOTE | 2024-10-20 11:34 | Neurology Consultation ---
Date of Consultation October 20, 2024 Assessment & Plan (1) Stroke: 59-year-old female with an acute right thalamic infarct presenting with a left hemisensory disturbance, face arm and leg and very subtle left-sided weakness. Agree with aspirin 81 mg/day, high intensity statin as ordered. Smoking cess ation. Current blood pressure appropriate. Follow-up with her PCP for ongoing management of cardiovascular risk factors including hypertension, dyslipidemia, and diabetes mellitus. Consultations with PT/OT/speech therapy. Should not require additional neurological follow-up. History of Present Illness Reason for Consultation: stroke Requesting Physician: Sivakumar Attending Physician: Anatoliy Navarrete MD History of Present Illness The patient is a 59-year-old female who presented to the emergency department yesterday morning with numbness of the left face arm and leg and mild associated weakness. Her symptoms are persistent this morning. She denies headache, vertigo, or double vision. No change in speech. A CT of the head was negative for acute process. CTA of the neck revealed moderate plaque within the proximal bilateral internal carotid arteries. A CTA of the head was normal. A brain MRI revealed an acute right thalamic lacunar infarct. I independently reviewed these images and was able to appreciate these findings. There was also evidence of chronic small vessel ischemic disease and relatively large area of chronic ischemic gliosis within the left frontal white matter. She has been started on aspirin 81 mg/day, her Lipitor has been continued. Allergies Allergy/AdvReac Type Severity Reaction Status Date / Time adhesive Allergy Unknown TEGADERM-SEVERE Verified 09/30/24 08:43 SKIN IRRITATION/RASH No Known Drug Allergies Allergy Unknown . Verified 09/30/24 08:43 Home Medications Medication Instructions Recorded Confirmed Type lisinopril 10 mg tablet 10 mg PO QAM 02/13/19 10/19/24 History albuterol sulfate 90 mcg/actuation 1 inh inhalation QID PRN sob 08/09/22 10/19/24 History aerosol inhaler (Ventolin HFA) gabapentin 600 mg tablet 600 mg PO TID 08/09/22 10/19/24 History furosemide 20 mg tablet 20 mg PO QAM #30 tabs 03/12/24 10/19/24 Rx methimazole 5 mg tablet 15 mg (3 x 5 mg) PO BID 03/12/24 10/19/24 Rx hyperthyroidism #180 tabs pantoprazole 40 mg tablet,delayed 40 mg PO QAM GERD with dysphagia 03/12/24 10/19/24 Rx release #30 tabs spironolactone 25 mg tablet 25 mg PO QAM #30 tabs 03/12/24 10/19/24 Rx umeclidinium 62.5 mcg-vilanterol 1 inh inhalation DAILY COPD #60 ea 03/12/24 10/19/24 Rx 25 mcg/actuation powdr for inhalation (Anoro Ellipta) Oxygen Home #1 ea 03/25/24 09/30/24 Rx bupropion HCl 300 mg 24 hr tablet, 300 mg PO QAM 04/04/24 10/19/24 History extended release (Wellbutrin XL) escitalopram oxalate 10 mg tablet 10 mg PO DAILY 04/04/24 10/19/24 History (Lexapro) metformin 1,000 mg tablet 1,000 mg PO BID 04/04/24 10/19/24 History metoprolol succinate 25 mg 25 mg PO QAM #90 tabs 04/04/24 10/19/24 Rx tablet,extended release 24 hr atorvastatin 80 mg tablet 80 mg PO DAILY 05/02/24 10/19/24 History semaglutide 7 mg tablet (Rybelsus) 7 mg PO DAILY 05/02/24 10/19/24 History simvastatin 40 mg tablet 40 mg PO HS #100 tabs 06/27/24 10/19/24 Rx empagliflozin 10 mg tablet 10 mg PO DAILY #90 tabs 07/04/24 10/19/24 Rx (Jardiance) Patient History Medical History Gallstones NO ISSUES WITH FOR MONTHS Follicular lymphoma S/P CHEMO (IN REMISSION) Scoliosis Chronic back pain Hyperlipidemia Sleep apnea uses CPAP -> cpap has "" in june 2022. instructed to follow up with PCP regarding the CPAP. Surgical History History of oophorectomy, unilateral RIGHT History of back surgery (~1978) X 2. HARDWARE PRESENT History of esophagogastroduodenoscopy (EGD) History of colonoscopy W/ POLYPECTOMY Family History Uncle Family history of diabetes mellitus Diabetes Cancer Brother Family history of reaction to anesthesia PT DOES NOT RECALL SPECIFICS BUT KNOWS HER BROTHER HAD ANESTHESIA RELATED COMPLICATIONS. DENIES MH, PD. Mother Cancer Grandmother Cancer Father Heart disease Social History Smoking Status: Current every day smoker Tobacco Type: Cigarettes Cigarettes Per Day: 3; Second Hand Exposure: Yes; Do You Dip or Chew Tobacco: No; Hx Alcohol Use: No Hx Substance Use: No Preferred Language: Danish Communication Ability: Effective Human Resources Support Specialist Required: No Beliefs That Will Affect Care: None marital status: Single Current Living Situation: Alone current occupational status: retired Feels Safe at Home: Yes Assistive Devices: Glasses, Oxygen - at Night and Walker Review of Systems Constitutional: no fever and no chills Eyes: no blind spots and no diplopia Ear, Nose, Mouth, Throat: no hearing loss Respiratory: no cough and no dyspnea Cardiovascular: no chest pain and no palpitations Gastrointestinal: no nausea and no vomiting Genitourinary: no dysuria Musculoskeletal: no myalgia Integumentary: no rash and no lesions Neurologic: as per Subjective / HPI Psychiatric: no depression and no anxiety Hematologic / Lymphatic: no easy bleeding and no easy bruising Exam (Neuro) Constitutional: well developed and well nourished; no acute distress Eyes: normal visual jennings by confrontation, PERRL and EOM intact bilaterally; no nystagmus Neurologic: Oriented to:: Person, Place and Time Memory: Short Term Intact and Remote Intact Attention: Span Intact and Concentration Intact Speech Fluency: Other (Dysphonia due to chronic vocal cord paralysis); negative Dysarthria or Dysfluency Speech Aphasia: negative Aphasia Fund of Knowledge: Current Events, Past History and Vocabulary Cranial Nerves: Normal II, III, IV, , V, VIII, IX, X, XI and XII; Abnorm VII (There is flattening of left nasolabial fold) Motor Strength: Normal Lower Extremities, Normal Upper Extremities and Pronator Drift Laterality: Left Motor Tone: Normal Lower Extremities and Normal Upper Extremities Muscle Bulk/Involuntary Movements: No Involuntary Movements; negative Muscle Atrophy Sensation: Proprioception Intact; negative Light Touch Intact or Pain/Temperature Intact Coordination: Finger-Nose Abnormal Laterality: Left and Heel-Munoz Abnormal Laterality: Left Deep Tendon Reflexes: Rt Triceps: 2+, Lt Triceps: 2+, Rt Biceps: 2+, Lt Biceps: 2+, Rt Brachioradialis: 2+, Lt Brachioradialis: 2+, Rt Patellar: 2+, Lt Patellar: 2+, Rt Ankle: 1+ and Lt Ankle: 1+ Special Tests: negative Babinski Present Results & Data Vital Signs (Past 12 Hours) Vital Signs Temp Pulse Pulse Resp BP Pulse Ox O2 Del Method 10/20/24 08:16 104 H 10/20/24 08:00 Room Air 10/20/24 07:50 36.9 C 104 H 20 124/75 93 Room Air 10/20/24 02:41 36.5 C 101 H 18 137/87 96 CPAP 10/20/24 00:02 36.6 C 62 18 102/47 L 90 Room Air, CPAP Laboratory Results WBC 6.81, hemoglobin 15.2, hematocrit 46.3, platelet count 304, sodium 139, potassium 5.2, BUN 10, creatinine 0.44, glucose 98, hemoglobin A1c 6.6, calcium 9.4, AST 17, ALT 18, triglycerides 83, cholesterol 183, LDL 127, VLDL 17, HDL [address] of the head, CTA of the head and neck, and brain MRI are as described in the HPI, I independently viewed these images. Electrocardiogram reveals sinus tachycardia. An echocardiogram completed May 28, 2024 revealed normal left ventricular systolic function, no wall motion abnormalities, EF 55 to 60%, left atrium mildly Coding Level of Care Code 38569 INT INP/OBS CARE 3/75MIN Diagnoses Stroke I63.9 Time Spent (min) 80 Comment Total time includes patient contact, chart review, counseling, note preparation
--- NOTE | 2024-10-20 13:01 | Hospitalist Progress Note ---
Date of Service October 20, 2024 Assessment & Plan (1) Stroke: Plan: Ischemic right thalamic CVA with resultant left upper extremity paresthesia and ataxia. Appreciate neurology consultation and recommendations. Continue statin therapy and aspirin therapy. Continue OT/PT therapy (2) Hypertension: Plan: Stable. Metoprolol has been restarted. (3) Chronic diastolic (congestive) heart failure: Plan: Stable. Monitor intake and output. (4) Hyperthyroidism: Plan: Continue methimazole. Free T3 and free T4 levels ordered and pending (5) Tobacco abuse: Plan: She has been counseled on smoking cessation (6) COPD (chronic obstructive pulmonary disease): Plan: Stable. Continue current inhaler therapy. (7) Severe obstructive sleep apnea: Plan: Stable. CPAP at bedtime (8) Diabetes mellitus, type 2: Plan: ADA diet. Sliding scale coverage as needed. Hemoglobin A1c 6.6%. Plan She is medically stable for discharge tomorrow, October 21, 2 SNF or IPR. Admission and Anticipated Discharge Date Admission Date: October 19, 2024 Subjective Alert and oriented. No distress. She has suffered a right thalamus ischemic CVA with resultant left upper extremity paresthesia, abnormal left upper extremity [id number]-[id number] and ataxic gait. Physical therapy has recommended rehab placement. Review of Systems 2 Review of Systems: Constitutionalno fever or chills ENTno blurred vision, no double vision, no epistaxis, no sore throat Respiratoryno cough, no wheezing, no shortness of breath Cardiacno palpitations, no chest pain, no syncope Michelle nausea, vomiting, diarrhea, melena, hematochezia GUno urinary retention, no urinary incontinence, no dysuria, no hematuria Musculoskeletalno joint pain, no muscle tenderness Skinno bruising, no rashes, no pruritus Neuroabnormal left hand bqgczt-[id number]-[id number]. Ataxic gait. Left upper extremity paresthesia Psychno depression, no anxiety Physical Exam 2 Physical Exam: General-alert and oriented x3, no fever, no chills HEENT-head atraumatic and normocephalic, pupils equal and reactive to light, extraocular muscles intact Neck-no lymphadenopathy or thyromegaly, trachea midline Chest-clear to auscultation. No rales, wheezing or rhonchi Cardiac-regular rate and rhythm, normal S1 and S2 Abdomen-normal bowel sounds, no hepatosplenomegaly Extremities-no cyanosis, clubbing, or edema Neuro-cranial nerves II through XII intact, abnormal left upper extremity [id number] examination, paresthesia involving left upper extremity Psych-normal affect, normal mood Results & Data Results & Data Vital Signs (Past 12 Hours) Vital Signs Temp Pulse Pulse Resp BP Pulse Ox O2 Del Method 10/20/24 08:16 104 H 10/20/24 08:00 Room Air 10/20/24 07:50 36.9 C 104 H 20 124/75 93 Room Air 10/20/24 02:41 36.5 C 101 H 18 137/87 96 CPAP Laboratory Results 10/20/24 06:32 10/20/24 06:32 PG Care Time/CCT Total # of Minutes Spent Total Time Spent with Patient: Total time spent is greater than 50% in coordination of care (as documented) at patient's floor/unit and/or counseling patient: Coding Level of Care Code 52365 SUB INP/OBS CARE 3/50MIN Diagnoses Stroke I63.9 Hypertension I10 Chronic diastolic (congestive) heart failure I50.32 Hyperthyroidism E05.90 Tobacco abuse Z72.0 COPD (chronic obstructive pulmonary disease) J44.9 Severe obstructive sleep apnea G47.33 Diabetes mellitus, type 2 E11.9
--- NOTE | 2024-10-20 14:26 | Pharmacy Report ---
- Date of Service October 20, 2024 - Pharmacy CVA/TIA Medication Review Medications to Prevent Stroke handout has been added to the patients discharge packet. Antiplatelet(s) * aspirin 81 mg PO daily Cholesterol * High intensity statin: atorvastatin 80 mg daily DVT Prophylaxis * Enoxaparin SQ Therapeutic Anticoagulation * No history of Afib/Aflutter noted Type 2 Diabetes * Patient has T2DM and patient is prescribed semaglutide and empagliflozin
--- NOTE | 2024-10-20 18:05 | XCELERA ---
[id number] \\[id number]
[2024-10-21 09:13] LABS: Basophils # (auto) 0.02 K/uL (0.00-0.20); Basophils % (auto) 0.4 %; Eosinophils # (auto) 0.06 K/uL (0.00-0.50); Eosinophils % (auto) 1.1 %; Hematocrit (blood only) 46.4 % (37.0-47.0); Hemoglobin 15.3 g/dl (12.0-16.0); Immature Granulocytes # (auto) 0.01 K/uL (0.01-0.20); Immature Granulocytes % (auto) 0.2 %; Lymphocytes # (auto) 1.35 K/uL (1.20-3.40); Lymphocytes % (auto) 25.6 %; Mean Corpuscular Hemoglobin 30.7 pg (25.0-34.0); Mean Platelet Volume 9.4 fL (9.4-12.4); Monocytes # (auto) 0.37 K/uL (0.11-0.59); Neutrophils # (auto) 3.46 K/uL (1.40-6.50); Neutrophils % (auto) 65.7 %; Platelet Count 289 K/uL (130-400); RDW Coefficient of Variation 13.7 % (11.5-14.5); RDW Standard Deviation 47.1 fL (36.4-46.3); Red Blood Count 4.99 M/uL (4.20-5.40); White Blood Count 5.27 K/ul (4.8-10.8)
[2024-10-21 09:28] LABS: BUN Creatinine Ratio 31.6 (10-20); Calcium 9.5 mg/dl (8.6-10.3); Creatinine Clr Calc Pharmacy 141.6 ml/min; Potassium 4.6 mmol/L (3.5-5.1)
--- NOTE | 2024-10-21 12:07 | Hospitalist Progress Note ---
Date of Service October 21, 2024 Assessment & Plan (1) Stroke: Plan: Ischemic right thalamic CVA with resultant left upper extremity paresthesia and ataxia. Appreciate neurology consultation and recommendations. Continue statin therapy and aspirin therapy. Continue OT/PT therapy (2) Hypertension: Plan: Stable. Metoprolol has been restarted. (3) Chronic diastolic (congestive) heart failure: Plan: Stable. Monitor intake and output. (4) Hyperthyroidism: Plan: Continue methimazole. Free T3 and free T4 levels are elevated as expected. (5) Tobacco abuse: Plan: She has been counseled on smoking cessation (6) COPD (chronic obstructive pulmonary disease): Plan: Stable. Continue current inhaler therapy. (7) Severe obstructive sleep apnea: Plan: Stable. CPAP at bedtime (8) Diabetes mellitus, type 2: Plan: ADA diet. Sliding scale coverage as needed. Hemoglobin A1c 6.6%. (9) Hyperkalemia: Plan: Lisinopril and spironolactone are on hold. Serial labs Plan She is medically stable for discharge to rehab facility when arrangements are finalized. Admission and Anticipated Discharge Date Admission Date: October 19, 2024 Subjective Alert and oriented. Pleasant. No new problems. Lasix has been restarted. Lisinopril and spironolactone remain on hold due to hyperkalemia. Review of Systems 2 Review of Systems: Constitutionalno fever or chills ENTno blurred vision, no double vision, no epistaxis, no sore throat Respiratoryno cough, no wheezing, no shortness of breath Cardiacno palpitations, no chest pain, no syncope Michelle nausea, vomiting, diarrhea, melena, hematochezia GUno urinary retention, no urinary incontinence, no dysuria, no hematuria Musculoskeletalno joint pain, no muscle tenderness Skinno bruising, no rashes, no pruritus Neuroabnormal left hand uqvqzb-jf-jctz. Ataxic gait. Left upper extremity paresthesia Psychno depression, no anxiety Physical Exam 2 Physical Exam: General-alert and oriented x3, no fever, no chills HEENT-head atraumatic and normocephalic, pupils equal and reactive to light, extraocular muscles intact Neck-no lymphadenopathy or thyromegaly, trachea midline Chest-clear to auscultation. No rales, wheezing or rhonchi Cardiac-regular rate and rhythm, normal S1 and S2 Abdomen-normal bowel sounds, no hepatosplenomegaly Extremities-no cyanosis, clubbing, or edema Neuro-cranial nerves II through XII intact, abnormal left upper extremity kejcux-hp-kuwt examination, paresthesia involving left upper extremity Psych-normal affect, normal mood Results & Data Results & Data Vital Signs (Past 12 Hours) Vital Signs Temp Pulse Pulse Resp BP Pulse Ox O2 Del Method 10/21/24 08:22 Room Air 10/21/24 07:42 36.6 C 76 18 118/62 92 Room Air 10/21/24 07:13 92 H 10/21/24 04:23 92 CPAP 10/21/24 04:02 36.4 C L 91 H 20 105/62 90 CPAP 10/21/24 03:50 76 20 94 10/21/24 00:23 85 O2 Flow Rate 10/21/24 08:22 10/21/24 07:42 10/21/24 07:13 10/21/24 04:23 2 10/21/24 04:02 10/21/24 03:50 2 10/21/24 00:23 Laboratory Results 10/21/24 08:37 10/21/24 08:37 PG Care Time/CCT Total # of Minutes Spent Total Time Spent with Patient: Total time spent is greater than 50% in coordination of care (as documented) at patient's floor/unit and/or counseling patient: Coding Level of Care Code 21095 SUB INP/OBS CARE 2/35MIN Diagnoses Stroke I63.9 Hypertension I10 Chronic diastolic (congestive) heart failure I50.32 Hyperthyroidism E05.90 Tobacco abuse Z72.0 COPD (chronic obstructive pulmonary disease) J44.9 Severe obstructive sleep apnea G47.33 Diabetes mellitus, type 2 E11.9 Hyperkalemia E87.5
[2024-10-22 07:12] LABS: BUN Creatinine Ratio 30.6 (10-20); Calcium 9.2 mg/dl (8.6-10.3); Creatinine Clr Calc Pharmacy 109.7 ml/min; Potassium 4.6 mmol/L (3.5-5.1)
[2024-10-22] MEDS: FUROSEMIDE 20 MG TAB PO SCH (07:38)
[2024-10-22] MEDS: INFLUENZA VACC TS2024-25(6m+)/PF (IIV3) 0.5mL Syr IM ONE (12:30)
--- NOTE | 2024-10-22 14:16 | Hospitalist Progress Note ---
Date of Service October 22, 2024 Assessment & Plan (1) Stroke: Plan: Ischemic right thalamic CVA with resultant left upper extremity paresthesia and ataxia. Appreciate neurology consultation and recommendations. Continue statin therapy and aspirin therapy. Continue OT/PT therapy (2) Hypertension: Plan: Stable. Metoprolol has been restarted. (3) Chronic diastolic (congestive) heart failure: Plan: Stable. Monitor intake and output. (4) Hyperthyroidism: Plan: Continue methimazole. Free T3 and free T4 levels are elevated as expected. (5) Tobacco abuse: Plan: She has been counseled on smoking cessation (6) COPD (chronic obstructive pulmonary disease): Plan: Stable. Continue current inhaler therapy. (7) Severe obstructive sleep apnea: Plan: Stable. CPAP at bedtime (8) Diabetes mellitus, type 2: Plan: ADA diet. Sliding scale coverage as needed. Hemoglobin A1c 6.6%. (9) Hyperkalemia: Plan: Now resolved. Lisinopril and spironolactone remain on hold. Spironolactone will be discontinued permanently. Serial labs Plan She is medically stable for discharge to rehab facility when arrangements are finalized. Admission and Anticipated Discharge Date Admission Date: October 19, 2024 Subjective Alert and oriented. No new problems. Potassium remains stable at 4.6. Spironolactone will be discontinued permanently at the time of discharge. She is awaiting placement in an SNF facility in the [facility] Review of Systems 2 Review of Systems: Constitutionalno fever or chills ENTno blurred vision, no double vision, no epistaxis, no sore throat Respiratoryno cough, no wheezing, no shortness of breath Cardiacno palpitations, no chest pain, no syncope Michelle nausea, vomiting, diarrhea, melena, hematochezia GUno urinary retention, no urinary incontinence, no dysuria, no hematuria Musculoskeletalno joint pain, no muscle tenderness Skinno bruising, no rashes, no pruritus Neuroabnormal left hand kgbbxu-oc-owga. Ataxic gait. Left upper extremity paresthesia Psychno depression, no anxiety Physical Exam 2 Physical Exam: General-alert and oriented x3, no fever, no chills HEENT-head atraumatic and normocephalic, pupils equal and reactive to light, extraocular muscles intact Neck-no lymphadenopathy or thyromegaly, trachea midline Chest-clear to auscultation. No rales, wheezing or rhonchi Cardiac-regular rate and rhythm, normal S1 and S2 Abdomen-normal bowel sounds, no hepatosplenomegaly Extremities-no cyanosis, clubbing, or edema Neuro-cranial nerves II through XII intact, abnormal left upper extremity czpgkn-[id number]-cyye examination, paresthesia involving left upper extremity Psych-normal affect, normal mood Results & Data Results & Data Vital Signs (Past 12 Hours) Vital Signs Temp Pulse Pulse Resp BP Pulse Ox O2 Del Method 10/22/24 11:01 36.6 C 62 18 111/60 93 Room Air 10/22/24 09:53 Room Air 10/22/24 07:30 36.6 C 60 20 109/63 92 Room Air 10/22/24 06:15 58 L 10/22/24 04:01 62 19 95 10/22/24 03:10 36.6 C 68 18 113/69 96 Room Air 10/22/24 02:59 71 O2 Flow Rate 10/22/24 11:01 10/22/24 09:53 10/22/24 07:30 10/22/24 06:15 10/22/24 04:01 5 10/22/24 03:10 10/22/24 02:59 Laboratory Results 10/21/24 08:37 10/22/24 05:52 PG Care Time/CCT Total # of Minutes Spent Total Time Spent with Patient: Total time spent is greater than 50% in coordination of care (as documented) at patient's floor/unit and/or counseling patient: Coding Level of Care Code 65248 SUB INP/OBS CARE 2/35MIN Diagnoses Stroke I63.9 Hypertension I10 Chronic diastolic (congestive) heart failure I50.32 Hyperthyroidism E05.90 Tobacco abuse Z72.0 COPD (chronic obstructive pulmonary disease) J44.9 Severe obstructive sleep apnea G47.33 Diabetes mellitus, type 2 E11.9 Hyperkalemia E87.5
--- NOTE | 2024-10-23 12:47 | Hospitalist Progress Note ---
Date of Service October 23, 2024 Assessment & Plan (1) Stroke: Plan: Ischemic right thalamic CVA with resultant left upper extremity paresthesia and ataxia. Appreciate neurology consultation and recommendations. Continue statin therapy and aspirin therapy. Continue OT/PT therapy (2) Hypertension: Plan: Stable. Metoprolol has been restarted. (3) Chronic diastolic (congestive) heart failure: Plan: Stable. Monitor intake and output. (4) Hyperthyroidism: Plan: Continue methimazole. Free T3 and free T4 levels are elevated as expected. (5) Tobacco abuse: Plan: She has been counseled on smoking cessation (6) COPD (chronic obstructive pulmonary disease): Plan: Stable. Continue current inhaler therapy. (7) Severe obstructive sleep apnea: Plan: Stable. CPAP at bedtime (8) Diabetes mellitus, type 2: Plan: ADA diet. Sliding scale coverage as needed. Hemoglobin A1c 6.6%. (9) Hyperkalemia: Plan: Now resolved. Lisinopril and spironolactone remain on hold. Spironolactone will be discontinued permanently. Serial labs Plan She is medically stable for discharge to rehab facility when arrangements are finalized. Awaiting placement at an SNF facility in the [facility] Admission and Anticipated Discharge Date Admission Date: October 19, 2024 Subjective Alert and oriented. Pleasant. No new problems. She is awaiting SNF placement after suffering ischemic CVA Review of Systems 2 Review of Systems: Constitutionalno fever or chills ENTno blurred vision, no double vision, no epistaxis, no sore throat Respiratoryno cough, no wheezing, no shortness of breath Cardiacno palpitations, no chest pain, no syncope Michelle nausea, vomiting, diarrhea, melena, hematochezia GUno urinary retention, no urinary incontinence, no dysuria, no hematuria Musculoskeletalno joint pain, no muscle tenderness Skinno bruising, no rashes, no pruritus Neuroabnormal left hand mrshaj-yr-zjkg. Ataxic gait. Left upper extremity paresthesia Psychno depression, no anxiety Physical Exam 2 Physical Exam: General-alert and oriented x3, no fever, no chills HEENT-head atraumatic and normocephalic, pupils equal and reactive to light, extraocular muscles intact Neck-no lymphadenopathy or thyromegaly, trachea midline Chest-clear to auscultation. No rales, wheezing or rhonchi Cardiac-regular rate and rhythm, normal S1 and S2 Abdomen-normal bowel sounds, no hepatosplenomegaly Extremities-no cyanosis, clubbing, or edema Neuro-cranial nerves II through XII intact, abnormal left upper extremity qhwslt-tg-[id number] examination, paresthesia involving left upper extremity Psych-normal affect, normal mood Results & Data Results & Data Vital Signs (Past 12 Hours) Vital Signs Temp Pulse Pulse Resp BP Pulse Ox O2 Del Method 10/23/24 11:25 36.8 C 61 18 101/62 89 L Room Air 10/23/24 09:03 Room Air 10/23/24 07:48 36.6 C 54 L 20 109/73 93 Room Air 10/23/24 05:43 67 10/23/24 03:13 36.5 C 57 L 18 103/65 89 L Room Air Laboratory Results 10/21/24 08:37 10/22/24 05:52 PG Care Time/CCT Total # of Minutes Spent Total Time Spent with Patient: Total time spent is greater than 50% in coordination of care (as documented) at patient's floor/unit and/or counseling patient: Coding Level of Care Code 75805 SUB INP/OBS CARE 2/35MIN Diagnoses Stroke I63.9 Hypertension I10 Chronic diastolic (congestive) heart failure I50.32 Hyperthyroidism E05.90 Tobacco abuse Z72.0 COPD (chronic obstructive pulmonary disease) J44.9 Severe obstructive sleep apnea G47.33 Diabetes mellitus, type 2 E11.9 Hyperkalemia E87.5
[2024-10-24 03:42] VITALS: RESP 18
[2024-10-24 07:34] VITALS: TEMP 97.9; O2SAT 93
[2024-10-24 10:49] VITALS: BP 111/60
--- NOTE | 2024-10-24 11:28 | Hospitalist Progress Note ---
Date of Service October 24, 2024 Assessment & Plan (1) Stroke: Plan: Ischemic right thalamic CVA with resultant left upper extremity paresthesia and ataxia. Appreciate neurology consultation and recommendations. Continue statin therapy and aspirin therapy. Continue OT/PT therapy (2) Hypertension: Plan: Blood pressure borderline low this morning, October 24. This morning's antihypertensive medications were held. (3) Chronic diastolic (congestive) heart failure: Plan: Stable. Monitor intake and output. (4) Hyperthyroidism: Plan: Continue methimazole. Free T3 and free T4 levels are elevated as expected. (5) Tobacco abuse: Plan: She has been counseled on smoking cessation (6) COPD (chronic obstructive pulmonary disease): Plan: Stable. Continue current inhaler therapy. (7) Severe obstructive sleep apnea: Plan: Stable. CPAP at bedtime (8) Diabetes mellitus, type 2: Plan: ADA diet. Sliding scale coverage as needed. Hemoglobin A1c 6.6%. (9) Hyperkalemia: Plan: Now resolved. Lisinopril and spironolactone remain on hold. Spironolactone will be discontinued permanently. Serial labs Plan She is medically stable for discharge to rehab facility when arrangements are finalized. Awaiting placement at an SNF facility in the [facility] Admission and Anticipated Discharge Date Admission Date: October 19, 2024 Subjective No new problems. Blood pressure was slightly low this morning and medications were held. Awaiting SNF placement in the [facility] Review of Systems 2 Review of Systems: Constitutionalno fever or chills ENTno blurred vision, no double vision, no epistaxis, no sore throat Respiratoryno cough, no wheezing, no shortness of breath Cardiacno palpitations, no chest pain, no syncope Michelle nausea, vomiting, diarrhea, melena, hematochezia GUno urinary retention, no urinary incontinence, no dysuria, no hematuria Musculoskeletalno joint pain, no muscle tenderness Skinno bruising, no rashes, no pruritus Neuroabnormal left hand izkwyb-sh-ufja. Ataxic gait. Left upper extremity paresthesia Psychno depression, no anxiety Physical Exam 2 Physical Exam: General-alert and oriented x3, no fever, no chills HEENT-head atraumatic and normocephalic, pupils equal and reactive to light, extraocular muscles intact Neck-no lymphadenopathy or thyromegaly, trachea midline Chest-clear to auscultation. No rales, wheezing or rhonchi Cardiac-regular rate and rhythm, normal S1 and S2 Abdomen-normal bowel sounds, no hepatosplenomegaly Extremities-no cyanosis, clubbing, or edema Neuro-cranial nerves II through XII intact, abnormal left upper extremity wiyhla-zd-gyrp examination, paresthesia involving left upper extremity Psych-normal affect, normal mood Results & Data Results & Data Vital Signs (Past 12 Hours) Vital Signs Temp Pulse Pulse Resp BP Pulse Ox O2 Del Method 10/24/24 10:47 36.6 C 55 L 18 111/60 93 Room Air 10/24/24 07:35 Room Air 10/24/24 07:33 36.6 C 64 18 99/63 L 93 Room Air 10/24/24 05:54 57 L 10/24/24 03:23 53 L 18 106/71 97 CPAP 10/24/24 02:42 65 19 95 10/23/24 23:43 70 20 96 O2 Flow Rate 10/24/24 10:47 10/24/24 07:35 10/24/24 07:33 10/24/24 05:54 10/24/24 03:23 5 10/24/24 02:42 5 10/23/24 23:43 5 Laboratory Results 10/21/24 08:37 10/22/24 05:52 PG Care Time/CCT Total # of Minutes Spent Total Time Spent with Patient: Total time spent is greater than 50% in coordination of care (as documented) at patient's floor/unit and/or counseling patient: Coding Level of Care Code 61615 SUB INP/OBS CARE 2/35MIN Diagnoses Stroke I63.9 Hypertension I10 Chronic diastolic (congestive) heart failure I50.32 Hyperthyroidism E05.90 Tobacco abuse Z72.0 COPD (chronic obstructive pulmonary disease) J44.9 Severe obstructive sleep apnea G47.33 Diabetes mellitus, type 2 E11.9 Hyperkalemia E87.5
--- NOTE | 2024-10-24 14:18 | Discharge Summary ---
Discharge Summary Date of Service October 24, 2024 Principal Dx & Hospital Course #1 = Principal Diagnosis (1) Stroke: Ischemic right thalamic CVA with resultant left upper extremity paresthesia and ataxia. Appreciate neurology consultation and recommendations. Continue statin therapy and aspirin therapy. Continue OT/PT therapy (2) Hypertension: Blood pressure borderline low this morning, October 24. This morning's antihyp ertensive medications were held. (3) Chronic diastolic (congestive) heart failure: Stable. Monitor intake and output. (4) Hyperthyroidism: Continue methimazole. Free T3 and free T4 levels are elevated as expected. (5) Tobacco abuse: She has been counseled on smoking cessation (6) COPD (chronic obstructive pulmonary disease): Stable. Continue current inhaler therapy. (7) Severe obstructive sleep apnea: Stable. CPAP at bedtime (8) Diabetes mellitus, type 2: ADA diet. Sliding scale coverage as needed. Hemoglobin A1c 6.6%. (9) Hyperkalemia: Now resolved. Lisinopril and spironolactone remain on hold. Spironolactone will be discontinued permanently. Continue to hold lisinopril at discharge until seen by PCP. Serial labs Plan She has decided to go home rather than go to an SNF facility. She will be discharged today, October 24 Admission HPI Per Admitting Provider This is a 59-year-old female, active smoker, with history of [id number] diabetes mellitus type 2, benign essential hypertension, hyperlipidemia who presented with the above chief complaint The patient stated that she had some tingling in the left side of her face and arm since yesterday morning. It was coming and going but it became more stable since last night. This morning she tried to go to the bathroom and fell twice because she had an imbalance gait. She thus came to the emergency room. CT head showed no acute findings but an old left frontal lobe infarct. CTA of head and neck were unremarkable. Brain MRI showed an acute right thalamic lacunar infarct. She is being admitted with a diagnosis of stroke. She is not a candidate for TNKase because she has had symptoms for more than 24 hours. She says that her left leg still feels weak. She does not take any aspirin or blood thinners at home. Past medical history 1. Benign essential hypertension 2. Gcq-szehhxa-kxukcorks diabetes mellitus type 2 3. COPD 4. GERD 5. Acute diastolic congestive heart failure 6. Obstructive sleep apnea 7. Nicotine dependence with active tobacco abuse 8. Hypothyroidism with multinodular goiter 9. History of lymphoma. In remission. Discharge Exam General-alert and oriented x3, no fever, no chills HEENT-head atraumatic and normocephalic, pupils equal and reactive to light, extraocular muscles intact Neck-no lymphadenopathy or thyromegaly, trachea midline Chest-clear to auscultation. No rales, wheezing or rhonchi Cardiac-regular rate and rhythm, normal S1 and S2 Abdomen-normal bowel sounds, no hepatosplenomegaly Extremities-no cyanosis, clubbing, or edema Neuro-cranial nerves II through XII intact, abnormal left upper extremity [id number] examination, paresthesia involving left upper extremity Psych-normal affect, normal mood Discharge Plan Discharge Items Patient Disposition: Home - Home Health Services Reason For Visit: STROKE-LIKE SYMPTOMS Discharge Diagnosis: Ischemic right thalamic CVA, hyperkalemia Activity: Resume your previous activity Non-emergency contact: Primary Care Provider Call non-emergency contact if: your symptoms worsen Follow-up/Referrals: Renea Su MD [Primary Care Provider] - Diet: Regular and Heart Healthy Addtl Attending Provider Instructions: Stop spironolactone and lisinopril due to elevated potassium levels and low blood pressure while hospitalized. Take aspirin 81 mg once a day Pending Studies at Discharge: No Stand-Alone Forms: My [facility] Cube Route, Smoking Cessation, Medications to Prevent Stroke Medications and DC Order Prescriptions: New aspirin 81 mg Tablet,Delayed Release (Dr/Ec) 81 mg PO QAM Qty: 0 0RF Continued simvastatin 40 mg tablet 40 mg PO HS Qty: 100 3RF Jardiance 10 mg tablet 10 mg PO DAILY Qty: 90 3RF (DME) Oxygen Home Liters Per Minute See Rx Instructions .MEDSUPPLY Qty: 1 0RF Rx Instructions: Home Oxygen concentrator with portability, test for conserving device. 0LMP via n/c at rest and 1-2LPM via n/c with exertion and sleep; KORY 99. atorvastatin 80 mg tablet 80 mg PO DAILY Rybelsus 7 mg tablet 7 mg PO DAILY metformin 1,000 mg tablet 1,000 mg PO BID bupropion HCl [Wellbutrin XL] 300 mg tablet extended release 24 hr 300 mg PO QAM escitalopram oxalate [Lexapro] 10 mg tablet 10 mg PO DAILY metoprolol succinate 25 mg tablet extended release 24 hr 25 mg PO QAM Qty: 90 3RF gabapentin 600 mg Tablet 600 mg PO TID albuterol sulfate [Ventolin HFA] 90 mcg/actuation Hfa Aerosol Inhaler 1 inh INHALATION QID PRN (Reason: sob) Anoro Ellipta 62.5-25 mcg/actuation Blister With Device 1 inh inhalation DAILY Qty: 60 0RF Rx Instructions: may make formulary substitution methimazole 5 mg Tablet 15 mg PO BID Qty: 180 0RF pantoprazole 40 mg Tablet,Delayed Release (Dr/Ec) 40 mg PO QAM Qty: 30 0RF furosemide 20 mg Tablet 20 mg PO QAM Qty: 30 0RF Discontinued lisinopril 10 mg Tablet 10 mg PO QAM spironolactone 25 mg Tablet 25 mg PO QAM Qty: 30 0RF Discharge Orders: Discharge Order (Routine); Ordered 10/24/24 Ordered By: Anatoliy Diehl/Other Patient Handouts: Managing Type 2 Diabetes Admission Data Admit Date/Time: 10/19/24 15:19 Attending Provider: Anatoliy Navarrete Admit Provider: [place] Shaver Primary Care Provider: Renea Su Other Providers: [place] Shaver; Glenroy Figueroa; [facility] Hospital Stay Data Consultations 10/19/24 14:46 ED Decision to Admit Stat 10/19/24 16:52 Consult Neurology Routine Diagnostic Imagining Performed 10/19/24 09:05 CT angio head w con Stat CT angio neck with con Stat CT head/brain wo con Stat 10/19/24 10:49 MRI Brain [MR brain wo con] Stat Pending Results Patient Have Any Pending Studies at Discharge: No Discharge Instructions Given to Patient (Per Discharging Provider) Stop spironolactone and lisinopril due to elevated potassium levels and low blood pressure while hospitalized. Take aspirin 81 mg once a day Total Time Total Time Spent Total Time Spent (In Minutes): 50 minutes Coding Level of Care Code 04258 INP/OBS DISCH >30 MIN Diagnoses Stroke I63.9 Hypertension I10 Chronic diastolic (congestive) heart failure I50.32 Hyperthyroidism E05.90 Tobacco abuse Z72.0 COPD (chronic obstructive pulmonary disease) J44.9 Severe obstructive sleep apnea G47.33 Diabetes mellitus, type 2 E11.9 Hyperkalemia E87.5
[2024-10-24 14:52] VITALS: PULSE 104
== END 2024-10-24 15:43 | disposition home health service (06) | DRG 65 ==
LOC: ED 08:48 → SUATTDRO 15:32 → 2N 15:32